=== PATIENT | female | born 1945 | race African-American/Black ===

== ENCOUNTER 2017-08-10 07:15 | Emergency (ER) | payer OTHER ==
[~2017-08-10] VITALS: Ht 162.6 cm; Wt 102.5 kg
[~2017-08-10 07:15] MED LIST: ALPR0.5T6 PO; CHOL10003 PO; FLUT9.9S NS; HYDR-2762 PO; INSU100V13 SQ; INSU100V31 SQ; LETR2.5T18 PO; LEVO750T31 PO; LISI1TAB5 PO; MECL25TA3 PO; METF-620 PO; OFLO5DRO7 EACH EAR; PROM25TA10 PO; SIMV20TA3 PO; TRAM50TA PO
[2017-08-10 07:38] LABS: BILIRUBIN,URINE NEGATIVE (NEG); GLUCOSE,URINE NEGATIVE (NEG); NITRITE,URINE NEGATIVE (NEG); PH,URINE 5.5; PROTEIN,URINE NEGATIVE (NEG-TRACE); UROBILINOGEN,URINE 0.2 mg/dL (0.2 mg/dL)
[2017-08-10 08:04] LABS: BACTERIA,URINE FEW /HPF (0-FEW); RBC,URINE 0 /HPF (0-2); SQUAMOUS EPITHELIAL CELL,UR FEW /LPF
[2017-08-10 08:18] LABS: BASO # 0.1 x10^3/uL (0.0-0.2); BASO % 1 % (0-3); EOS % 1 % (0-3); HEMATOCRIT 39.9 % (36.0-47.0); HEMOGLOBIN 12.9 g/dL (12.0-15.5); LYMPH # 2.6 x10^3/uL (1.0-4.8); LYMPH % 38 % (24-48); MEAN CORPUSCULAR HEMOGLOBIN 26 pg (25-35); MEAN CORPUSCULAR HGB CONC 32 g/dL (31-37); MEAN CORPUSCULAR VOLUME 80 fL (79-100); MONO % 8 % (0-9); NEUT % 53 % (31-73); PLATELET COUNT 201 x10^3/uL (140-400); RED CELL DISTRIBUTION WIDTH 13.9 % (11.5-14.5); WHITE BLOOD COUNT 6.8 x10^3/uL (4.0-11.0)
[2017-08-10 08:20] LABS: CALCIUM 8.8 mg/dL (8.5-10.1); CREATININE 1.2 mg/dL (0.6-1.0); GFR 53.7; POTASSIUM 3.2 mmol/L (3.5-5.1)
--- NOTE | 2017-08-10 08:25 | PHYS DOC ---
Past Medical History Past Medical History: Anxiety, Cancer, Diabetes-Type II, High Cholesterol, Hypertension, Other Additional Past Medical Histor: MACULAR DEGENERATION, GOUT, PANIC ATTACKS Past Surgical History: Cholecystectomy, Tubal ligation, Other Additional Past Surgical Histo: LT BREAST REDUCTION, EYE PROCEDURES,L) masectomy.R)finger fx repair Alcohol Use: Rarely Drug Use: None Adult General Chief Complaint Chief Complaint: nausea and shakiness HPI HPI Patient is a 71 year old female who presents with intermittent nausea and shakiness that patient attributes to the Xanax she's been taking for her chronic anxiety. She came to this realization after talking to the pharmacist. She last took Xanax yesterday at 1 PM and woke up at 5 PM feeling the symptoms. She denies any associated pain, she has not vomited, no recent illness or fevers. She denies chest pain or shortness of breath. Patient reports she has multiple phobias that contributed to her anxiety, one being fear of [place] and she lives on the eighth floor. Patient's treated for anxiety by her primary care physician, Dr. Amin Review of Systems Review of Systems Constitutional: Denies fever or chills [] Eyes: Denies change in visual acuity, redness, or eye pain [] HENT: Denies nasal congestion or sore throat [] Respiratory: Denies cough or shortness of breath [] Cardiovascular: denies chest pain GI: Denies abdominal pain, vomiting, bloody stools or diarrhea [] : Denies dysuria or hematuria [] Musculoskeletal: Denies back pain or joint pain [] Integument: Denies rash or skin lesions [] Neurologic: Denies headache, focal weakness or sensory changes [] Current Medications Current Medications Current Medications Medications (Trade) Dose Ordered Sig/[facility] Start Time Stop Time Status Last Admin Dose Admin Aspirin (Anthony Aspirin) 325 mg 1X ONCE 08/10/17 09:30 08/10/17 09:34 DC Nitroglycerin/ Dextrose 250 ml @ 0 mls/hr 1X ONCE 08/10/17 09:00 08/10/17 09:34 DC Ondansetron HCl (Zofran) 4 mg 1X ONCE 08/10/17 08:30 08/10/17 08:31 DC 08/10/17 08:21 4 MG Allergies Allergies Allergies Coded Allergies Type Severity Reaction Last Updated Verified codeine Adverse Reaction Intermediate "HYPERVENTILATE" 08/10/17 Yes ibuprofen Adverse Reaction Intermediate "SICK" 08/10/17 Yes Physical Exam Physical Exam Constitutional: Well developed, well nourished, no acute distress, non-toxic appearance. [] HENT: Normocephalic, atraumatic, bilateral external ears normal, oropharynx moist, no oral exudates, nose normal. [] Eyes: PERRLA, EOMI, conjunctiva normal, no discharge. [] Neck: Normal range of motion, no tenderness, supple, no stridor. [] Cardiovascular:Heart rate regular with regular rhythm, no murmur [] Lungs & Thorax: Bilateral breath sounds clear to auscultation, no wheeze or crackles Abdomen: Bowel sounds normal, soft, no tenderness, no masses, no pulsatile masses. [] Skin: Warm, dry, no erythema, no rash. [] Back: No tenderness, no CVA tenderness. [] Extremities: No tenderness, no cyanosis, no clubbing, ROM intact, no edema. [] Neurologic: Alert and oriented X 3, normal motor function, normal sensory function, no focal deficits noted. [] Psychologic: Appears anxious, normal affect Current Patient Data Vital Signs Vital Signs Date Time Temp Pulse Resp B/P (MAP) Pulse Ox O2 Delivery O2 Flow Rate FiO2 08/10/17 07:30 98.0 74 20 131/65 (87) 98 Room Air 98.0 Lab Values Laboratory Tests Test 08/10/17 07:26 08/10/17 07:54 08/10/17 07:55 Urine Collection Type Unknown Urine Color Yellow Urine Clarity Clear Urine pH 5.5 Urine Specific [place] 1.015 Urine Protein Negative mg/dL (NEG-TRACE) Urine Glucose (UA) Negative mg/dL (NEG) Urine Ketones (Stick) Negative mg/dL (NEG) Urine Blood Negative (NEG) Urine Nitrite Negative (NEG) Urine Bilirubin Negative (NEG) Urine Urobilinogen Dipstick 0.2 mg/dL (0.2 mg/dL) Urine Leukocyte Esterase Small (NEG) Urine RBC 0 /HPF (0-2) Urine WBC 1-4 /HPF (0-4) Urine Squamous Epithelial Cells Few /LPF Urine Bacteria Few /HPF (0-FEW) Urine Mucus Slight /LPF Glucose (Fingerstick) 107 mg/dL (70-99) H White Blood Count 6.8 x10^3/uL (4.0-11.0) Red Blood Count 5.00 x10^6/uL (3.50-5.40) Hemoglobin 12.9 g/dL (12.0-15.5) Hematocrit 39.9 % (36.0-47.0) Mean Corpuscular Volume 80 fL (79-100) Mean Corpuscular Hemoglobin 26 pg (25-35) Mean Corpuscular Hemoglobin Concent 32 g/dL (31-37) Red Cell Distribution Width 13.9 % (11.5-14.5) Platelet Count 201 x10^3/uL (140-400) Neutrophils (%) (Auto) 53 % (31-73) Lymphocytes (%) (Auto) 38 % (24-48) Monocytes (%) (Auto) 8 % (0-9) Eosinophils (%) (Auto) 1 % (0-3) Basophils (%) (Auto) 1 % (0-3) Neutrophils # (Auto) 3.6 x10^3uL (1.8-7.7) Lymphocytes # (Auto) 2.6 x10^3/uL (1.0-4.8) Monocytes # (Auto) 0.6 x10^3/uL (0.0-1.1) Eosinophils # (Auto) 0.0 x10^3/uL (0.0-0.7) Basophils # (Auto) 0.1 x10^3/uL (0.0-0.2) Prothrombin Time 12.4 SEC (11.7-14.0) Prothrombin Time INR 1.0 (0.8-1.1) Sodium Level 143 mmol/L (136-145) Potassium Level 3.2 mmol/L (3.5-5.1) L Chloride Level 105 mmol/L (98-107) Carbon Dioxide Level 28 mmol/L (21-32) Anion Gap 10 (6-14) Blood Urea Nitrogen 20 mg/dL (7-20) Creatinine 1.2 mg/dL (0.6-1.0) H Estimated GFR (Cockcroft-Gault) 53.7 BUN/Creatinine Ratio 17 (6-20) Glucose Level 108 mg/dL (70-99) H Calcium Level 8.8 mg/dL (8.5-10.1) Magnesium Level 1.4 mg/dL (1.8-2.4) L Total Bilirubin 0.5 mg/dL (0.2-1.0) Aspartate Amino Transferase (AST) 24 U/L (15-37) Alanine Aminotransferase (ALT) 34 U/L (14-59) Alkaline Phosphatase 63 U/L (46-116) Troponin I Quantitative 0.115 ng/mL (0.000-0.055) Total Protein 7.2 g/dL (6.4-8.2) Albumin 3.5 g/dL (3.4-5.0) Albumin/Globulin Ratio 0.9 (1.0-1.7) L Laboratory Tests 08/10/17 07:55 Laboratory Tests 08/10/17 07:55 EKG EKG 72 bpm, sinus, normal axis, QTC of 473, T-wave inversions in 1, 2, V3 through V6 , aVL, no new ST elevation or depression, compared with previous EKG on May 05, 2015 and there is no acute change appreciated, interpreted by me[] Radiology/Procedures Radiology/Procedures cxr: Portable chest, 08/10/2017: History: Weakness Comparison is made to a study from 03/19/2015. The heart size and pulmonary vascularity are normal. There is mild tortuosity of the thoracic aorta. There is minimal right basilar scarring. No acute pulmonary infiltrates are seen. There is no evidence of pleural fluid. Surgical clips are present in the left axilla. IMPRESSION: No acute cardiopulmonary abnormality is detected. [] Course & Med Decision Making Course & Med Decision Making Pertinent Labs and Imaging studies reviewed. (See chart for details) labs/cxr/ekg performed, IV zofran given for nausea. Pt feeling improved, discussed abnormal findings on pt and not acute/new. Pt has chronically elevated troponin, not increased from prior, EKG unchanged, h/o renal insufficiency. Pt agreeable to dc with f/u with pcp. DC'd with zofran odt and recommended discontinuing xanax Dragon Disclaimer Dragon Disclaimer This electronic medical record was generated, in whole or in part, using a voice recognition dictation system. Departure Departure Impression: Primary Impression: Nausea Disposition: HOME, SELF-CARE Condition: IMPROVED Referrals: WAQAR AMIN MD (PCP) Scripts Ondansetron (ZOFRAN ODT) 4 Mg Tab.rapdis 1 TAB SL Q8HRS Y for NAUSEA, #10 TAB Prov: NICK GIBSON MD 08/10/17 NICK GIBSON MD Aug 10, 2017 08:25
[2017-08-10 08:27] LABS: ALBUMIN 3.5 g/dL (3.4-5.0); ALBUMIN/GLOBULIN RATIO 0.9 (1.0-1.7); MAGNESIUM 1.4 mg/dL (1.8-2.4); TOTAL BILIRUBIN 0.5 mg/dL (0.2-1.0); TOTAL PROTEIN 7.2 g/dL (6.4-8.2)
[2017-08-10 08:29] LABS: PROTHROMBIN TIME PATIENT 12.4 SEC (11.7-14.0)
[2017-08-10] MEDS ORDERED: ONDANSETRON PF 4 MG/2 ML VIAL. IV ONE (08:30)
--- NOTE | 2017-08-10 08:47 | EKG ---
[facility] [address] [place] [address] Test Date: 2017-08-10 Test Time: 07:59:30 Pat Name: VIRGILIO HICKEY Department: Room: Gender: F Group Manager: : 1945 Requested By: NICK GIBSON Order Number: [id number] Reading MD: Keily Angela Measurements Intervals [place] Rate: 72 P: 31 MD: 198 QRS: -8 QRSD: 76 T: 178 QT: 430 QTc: 473 Interpretive Statements SINUS RHYTHM LEFTWARD AXIS LVH WITH REPOLARIZATION ABNORMALITY ALSO CONSIDER MYOCARDIAK ISCHEMIA Electronically Signed On 08-12-2017 20:35:23 CDT by Keily Angela
--- NOTE | 2017-08-10 08:56 | RAD ---
Portable chest, 08/10/2017: History: Weakness Comparison is made to a study from 03/19/2015. The heart size and pulmonary vascularity are normal. There is mild tortuosity of the thoracic aorta. There is minimal right basilar scarring. No acute pulmonary infiltrates are seen. There is no evidence of pleural fluid. Surgical clips are present in the left axilla. IMPRESSION: No acute cardiopulmonary abnormality is detected.
[2017-08-10] MEDS ORDERED: NITROGLYCERIN PREMIX 250 ML IV ONE (09:00)
[2017-08-10] MEDS ORDERED: ASPIRIN 325 MG TABLET PO ONE (09:30)
[2017-08-10 09:49] VITALS: BP 136/65
[2017-08-10] MEDS ORDERED: ONDA4TAB10 SL (09:49)
== END 2017-08-10 10:00 | disposition home or self-care (01) ==
LOC: ER 07:15
DX: R11.0 Nausea (principal); F41.9 Anxiety disorder, unspecified; E11.9 Type 2 diabetes mellitus without complications; E78.00 Pure hypercholesterolemia, unspecified; M10.9 Gout, unspecified; I10 Essential (primary) hypertension; Z90.49 Acquired absence of other specified parts of digestive tract; Z98.51 Tubal ligation status; Z88.5 Allergy status to narcotic agent; Z88.6 Allergy status to analgesic agent
CPT/HCPCS: 36415; 71010; 80053; 81001; 82962; 83735; 84484; 85025; 85610; 93005; 96374; 99285; J2405

== ENCOUNTER 2018-01-15 08:48 | Emergency (ER) | payer OTHER ==
[2018-01-15] MEDS: PROPARACAINE 0.5% OPHTH SOLUTION 15ML BOTTLE. OU (09:57)
== END 2018-01-15 10:05 | disposition home or self-care (01) ==
LOC: ER 08:48
DX: H66.003 Acute suppurative otitis media without spontaneous rupture of ear drum, bilateral (principal); E11.9 Type 2 diabetes mellitus without complications; E78.00 Pure hypercholesterolemia, unspecified; I10 Essential (primary) hypertension; M10.9 Gout, unspecified; Z88.5 Allergy status to narcotic agent; Z88.8 Allergy status to other drugs, medicaments and biological substances
CPT/HCPCS: 99283

== ENCOUNTER 2018-02-24 07:37 | Emergency (ER) | payer OTHER ==
[2018-02-24 08:51] LABS: NEGATIVE OBC STREP NEG; POSITIVE OBC STREP POS
== END 2018-02-24 09:05 | disposition home or self-care (01) ==
LOC: ER 07:37
DX: H10.89 Other conjunctivitis (principal); J02.8 Acute pharyngitis due to other specified organisms; B97.89 Other viral agents as the cause of diseases classified elsewhere; E78.00 Pure hypercholesterolemia, unspecified; M10.9 Gout, unspecified; I10 Essential (primary) hypertension; E11.9 Type 2 diabetes mellitus without complications; Z90.49 Acquired absence of other specified parts of digestive tract; Z98.51 Tubal ligation status; Z88.5 Allergy status to narcotic agent; Z88.6 Allergy status to analgesic agent
CPT/HCPCS: 87070; 87880; 99283

== ENCOUNTER → 2019-02-13 | Outpatient (CLI) | payer OTHER ==
[2018-12-20 13:31] VITALS: BP 161/77
[~2019-02-13] MED LIST changes: +AMLO5TAB10 PO; +AMOX500C PO; +ASPI-630 PO; +AZIT250T PO; +BENZ100C PO; +FEMARA2.5 MG PO; -HYDR-2762 PO; +HYDR-2765 PO; +HYDR25TA PO; -LETR2.5T18 PO; +LOSA100T14 PO; -METF-620 PO; +METF10007 PO; +ONDA4TAB10 SL; +TOBR5DRO6 EACHEYE
[2019-02-13 15:24] LABS: BARBITURATES NEG (NEG); BENZODIAZEPINES NEG (NEG); CANNABINOIDS POS (NEG); COCAINE NEG (NEG); METHADONE NEG (NEG); OPIATES NEG (NEG); PHENCYCLIDINE NEG (NEG)
[2019-02-13 15:26] LABS: AMPHETAMINE/METHAMPHETAMINE NEG (NEG); BASO % 0 % (0-3); EOS % 0 % (0-3); HEMOGLOBIN 12.6 g/dL (12.0-15.5); LYMPH # 2.5 x10^3/uL (1.0-4.8); LYMPH % 36 % (24-48); MEAN CORPUSCULAR HEMOGLOBIN 25 pg (25-35); MEAN CORPUSCULAR HGB CONC 32 g/dL (31-37); MEAN CORPUSCULAR VOLUME 81 fL (79-100); MONO # 0.6 x10^3/uL (0.0-1.1); MONO % 9 % (0-9); NEUT # 3.9 x10^3uL (1.8-7.7); NEUT % 55 % (31-73); PLATELET COUNT 190 x10^3/uL (140-400); RED BLOOD COUNT 4.96 x10^6/uL (3.50-5.40); RED CELL DISTRIBUTION WIDTH 14.8 % (11.5-14.5); WHITE BLOOD COUNT 7.1 x10^3/uL (4.0-11.0)
[2019-02-13 15:34] LABS: ALBUMIN 3.7 g/dL (3.4-5.0); ALBUMIN/GLOBULIN RATIO 0.9 (1.0-1.7); CALCIUM 9.5 mg/dL (8.5-10.1); CREATININE 1.4 mg/dL (0.6-1.0); GFR 44.7; POTASSIUM 4.2 mmol/L (3.5-5.1); TOTAL BILIRUBIN 0.4 mg/dL (0.2-1.0); TOTAL PROTEIN 7.9 g/dL (6.4-8.2)
== END | disposition home or self-care (01) ==
LOC: LAB 14:39
PROVIDERS: ATTEND Psychiatry & Neurology Neurology
DX: R56.9 Unspecified convulsions (principal)
CPT/HCPCS: 36415; 80053; 80307; 82607; 84443; 85025

== ENCOUNTER 2019-04-09 17:31 | Emergency (ER) | payer OTHER ==
[~2019-04-09] VITALS: Ht 162.6 cm; Wt 106.7 kg
[~2019-04-09 17:31] MED LIST changes: -AZIT250T PO; -BENZ100C PO
[2019-04-09] MEDS ORDERED: IV NORMAL SALINE 1000ML BAG 1,000 ML IV SCH (18:23)
--- NOTE | 2019-04-09 18:29 | PHYS DOC ---
Past Medical History Past Medical History: Anxiety, Cancer, Diabetes-Type II, High Cholesterol, Hypertension, Other Additional Past Medical Histor: MACULAR DEGENERATION, GOUT, PANIC ATTACKS Past Surgical History: Cholecystectomy, Tubal ligation, Other Additional Past Surgical Histo: LT BREAST REDUCTION, EYE PROCEDURES,L)masectomy.R)finger fx repair Alcohol Use: None Drug Use: Marijuana Adult General Chief Complaint Chief Complaint: COUGH HPI HPI Patient is a 73-year-old female who presents with complaint of cough, fatigue and generalized weakness as well as chest wall pain. Patient states that she's been feeling sick for about a month now. She states that she has had a left- sided mastectomy and feels like she's got fluid in the scar tissue, stating that it seems swollen to her and is painful. She denies any shortness of breath but states that she hasn't really been eating getting up and around because she so fatigued. She states that she has an appointment with her doctor this Tuesday but states that she was not able to wait any longer because she is feeling so bad. She rates pain in her chest is moderate. She also indicates that she has been nauseated but has not vomited. She does admit to some loose stools periodically but states that that depends on what she eats.[] Review of Systems Review of Systems Constitutional: Denies fever or chills [] Respiratory: Positive cough without shortness of breath [] Cardiovascular: No additional information not addressed in HPI [] GI: Denies abdominal pain. Complains of nausea without vomiting. [] Integument: Denies rash or skin lesions [] Neurologic: Denies headache, focal weakness or sensory changes [] All other systems were reviewed and found to be within normal limits, except as documented in this note. Current Medications Current Medications Current Medications Medications (Trade) Dose Ordered Sig/[facility] Start Time Stop Time Status Last Admin Dose Admin Aspirin (Children'S Aspirin) 324 mg 1X ONCE 04/09/19 19:00 04/09/19 19:01 DC 04/09/19 18:48 324 MG Fentanyl Citrate (Fentanyl 2ml Vial) 25 mcg PRN Q15MIN PRN 04/09/19 18:30 04/10/19 18:29 04/09/19 18:49 25 MCG Ondansetron HCl (Zofran) 4 mg 1X ONCE 04/09/19 18:30 04/09/19 18:31 DC 04/09/19 18:49 4 MG Sodium Chloride 1,000 ml @ 100 mls/hr Q10H 04/09/19 18:23 04/10/19 04:22 04/09/19 18:49 100 MLS/HR Allergies Allergies Allergies Coded Allergies Type Severity Reaction Last Updated Verified codeine Adverse Reaction Intermediate "HYPERVENTILATE" 08/10/17 Yes ibuprofen Adverse Reaction Intermediate "SICK" 08/10/17 Yes Physical Exam Physical Exam Constitutional: Well developed, well nourished, no acute distress, non-toxic appearance. [] HENT: Normocephalic, atraumatic, bilateral external ears normal, oropharynx moist, no oral exudates, nose normal. [] Eyes: PERRLA, EOMI, conjunctiva normal, no discharge. [] Neck: Normal range of motion, no tenderness, supple, no stridor. [] Cardiovascular:Heart rate regular rhythm, no murmur [] Lungs & Thorax: Bilateral breath sounds clear to auscultation [] Abdomen: Bowel sounds normal, soft. [] Skin: Warm, dry, no erythema, no rash. [] Extremities: No tenderness, no cyanosis, no clubbing, ROM intact, no edema. [] Neurologic: Alert and oriented X 3, no focal deficits noted. [] Current Patient Data Vital Signs Vital Signs Date Time Temp Pulse Resp B/P (MAP) Pulse Ox O2 Delivery O2 Flow Rate FiO2 04/09/19 18:56 81 19 163/77 (105) 92 Nasal Cannula 04/09/19 18:20 97.8 97.8 Lab Values Laboratory Tests Test 04/09/19 18:25 White Blood Count 8.3 x10^3/uL (4.0-11.0) Red Blood Count 4.83 x10^6/uL (3.50-5.40) Hemoglobin 12.5 g/dL (12.0-15.5) Hematocrit 38.7 % (36.0-47.0) Mean Corpuscular Volume 80 fL (79-100) Mean Corpuscular Hemoglobin 26 pg (25-35) Mean Corpuscular Hemoglobin Concent 32 g/dL (31-37) Red Cell Distribution Width 14.7 % (11.5-14.5) H Platelet Count 237 x10^3/uL (140-400) Neutrophils (%) (Auto) 65 % (31-73) Lymphocytes (%) (Auto) 24 % (24-48) Monocytes (%) (Auto) 9 % (0-9) Eosinophils (%) (Auto) 1 % (0-3) Basophils (%) (Auto) 1 % (0-3) Neutrophils # (Auto) 5.3 x10^3uL (1.8-7.7) Lymphocytes # (Auto) 2.0 x10^3/uL (1.0-4.8) Monocytes # (Auto) 0.7 x10^3/uL (0.0-1.1) Eosinophils # (Auto) 0.1 x10^3/uL (0.0-0.7) Basophils # (Auto) 0.1 x10^3/uL (0.0-0.2) D-Dimer (Lili) 0.30 ug/mlFEU (0.00-0.50) Sodium Level 141 mmol/L (136-145) Potassium Level 3.8 mmol/L (3.5-5.1) Chloride Level 103 mmol/L (98-107) Carbon Dioxide Level 27 mmol/L (21-32) Anion Gap 11 (6-14) Blood Urea Nitrogen 14 mg/dL (7-20) Creatinine 1.3 mg/dL (0.6-1.0) H Estimated GFR (Cockcroft-Gault) 48.7 BUN/Creatinine Ratio 11 (6-20) Glucose Level 184 mg/dL (70-99) H Calcium Level 9.7 mg/dL (8.5-10.1) Magnesium Level 1.5 mg/dL (1.8-2.4) L Total Bilirubin 0.2 mg/dL (0.2-1.0) Aspartate Amino Transferase (AST) 25 U/L (15-37) Alanine Aminotransferase (ALT) 39 U/L (14-59) Alkaline Phosphatase 74 U/L (46-116) Troponin I Quantitative 0.178 ng/mL (0.000-0.055) GH-Mkb-O-Type Natriuretic Peptide 181 pg/mL (0-124) H Total Protein 7.4 g/dL (6.4-8.2) Albumin 3.4 g/dL (3.4-5.0) Albumin/Globulin Ratio 0.9 (1.0-1.7) L Lipase 151 U/L (73-393) Laboratory Tests 04/09/19 18:25 Laboratory Tests 04/09/19 18:25 EKG EKG EKG demonstrates sinus rhythm with rate of 91.[] Radiology/Procedures Radiology/Procedures [] Impressions: chest x-ray demonstrates no acute process. Course & Med Decision Making Course & Med Decision Making Pertinent Labs and Imaging studies reviewed. (See chart for details) Findings of workup have been reviewed with patient along with elevated troponin. Patient indicates that she always has elevated troponin. She states that she was admitted just back in December for the same thing and they did a heart catheterization. Heart catheter was unremarkable. Patient does have an appointment with Dr. Marx on Tuesday. She indicates that she does not want to be admitted into the hospital at this time. Dragon Disclaimer Dragon Disclaimer This electronic medical record was generated, in whole or in part, using a voice recognition dictation system. Departure Departure Impression: Primary Impression: Upper respiratory infection Disposition: HOME, SELF-CARE Condition: STABLE Referrals: ZOILA MARX MD (PCP) Patient Instructions: Upper Respiratory Infection, Adult Scripts Benzonatate (TESSALON PERLE) 100 Mg Capsule 1 CAP PO TID PRN for COUGH, #21 CAP Prov: NELL LUCERO Jr. DO 04/09/19 Azithromycin (ZITHROMAX) 250 Mg Tablet 1 PKG PO UD, #6 TAB Prov: NELL LUCERO Jr. DO 04/09/19 Problem Qualifiers Primary Impression: Upper respiratory infection URI type: unspecified URI Qualified Codes: J06.9 - Acute upper respiratory infection, unspecified NELL LUCERO Jr. DO Apr 09, 2019 18:29
[2019-04-09] MEDS ORDERED: fentaNYL PF VIAL 100 MCG/2 ML VIAL IV PRN (18:30)
[2019-04-09] MEDS ORDERED: ONDANSETRON PF 4 MG/2 ML VIAL. IV ONE (18:30)
[2019-04-09 18:40] LABS: BASO # 0.1 x10^3/uL (0.0-0.2); BASO % 1 % (0-3); EOS # 0.1 x10^3/uL (0.0-0.7); EOS % 1 % (0-3); HEMATOCRIT 38.7 % (36.0-47.0); HEMOGLOBIN 12.5 g/dL (12.0-15.5); LYMPH % 24 % (24-48); MEAN CORPUSCULAR HEMOGLOBIN 26 pg (25-35); MEAN CORPUSCULAR HGB CONC 32 g/dL (31-37); MEAN CORPUSCULAR VOLUME 80 fL (79-100); MONO # 0.7 x10^3/uL (0.0-1.1); MONO % 9 % (0-9); NEUT # 5.3 x10^3uL (1.8-7.7); NEUT % 65 % (31-73); PLATELET COUNT 237 x10^3/uL (140-400); RED BLOOD COUNT 4.83 x10^6/uL (3.50-5.40); RED CELL DISTRIBUTION WIDTH 14.7 % (11.5-14.5); WHITE BLOOD COUNT 8.3 x10^3/uL (4.0-11.0)
[2019-04-09 18:58] LABS: CALCIUM 9.7 mg/dL (8.5-10.1); CREATININE 1.3 mg/dL (0.6-1.0); GFR 48.7; POTASSIUM 3.8 mmol/L (3.5-5.1)
[2019-04-09] MEDS ORDERED: ASPIRIN CHEWABLE 81 MG TABLET. PO ONE (19:00)
[2019-04-09 19:03] LABS: ALBUMIN 3.4 g/dL (3.4-5.0); TOTAL PROTEIN 7.4 g/dL (6.4-8.2)
[2019-04-09 19:04] LABS: ALBUMIN/GLOBULIN RATIO 0.9 (1.0-1.7); MAGNESIUM 1.5 mg/dL (1.8-2.4); TOTAL BILIRUBIN 0.2 mg/dL (0.2-1.0)
[2019-04-09 20:20] VITALS: BP 149/72
[2019-04-09] MEDS ORDERED: BENZ100C PO (20:32)
[2019-04-09] MEDS ORDERED: AZIT250T PO (20:32)
[2019-04-09] MEDS ORDERED: AZITHROMYCIN 250 MG TABLET. PO ONE (21:00)
--- NOTE | 2019-04-09 23:49 | RAD ---
PORTABLE CHEST 1V History: Chest pain Comparison: 12/19/2018 Findings: Single view of the chest is submitted. Pericardial cardiac silhouette is again somewhat enlarged although stable. There is no new lobar consolidation, pleural fluid, pneumothorax. Impression: 1. No acute radiographic abnormality is identified. Electronically signed by: Elmer Combs MD (04/09/2019 11:46 PM) [facility]
--- NOTE | 2019-04-10 05:41 | EKG ---
[facility] [address] [place] [address] Test Date: 2019-04-09 Test Time: 18:25:59 Pat Name: VIRGILIO HICKEY Department: Room: Gender: F Neurologist: : 1945 Requested By: NELL LUCERO Order Number: [id number] Reading MD: Measurements Intervals [place] Rate: 91 P: 18 MT: 270 QRS: -1 QRSD: 72 T: 155 QT: 370 QTc: 457 Interpretive Statements SINUS RHYTHM PROLONGED MT INTERVAL LEFT ATRIAL ABNORMALITY LEFTWARD AXIS LVH WITH REPOLARIZATION ABNORMALITY ABNORMAL ECG RI6.01 Unconfirmed report No previous ECG available for comparison
== END 2019-04-09 20:35 | disposition home or self-care (01) ==
LOC: ER 17:31
DX: J06.9 Acute upper respiratory infection, unspecified (principal); E11.9 Type 2 diabetes mellitus without complications; E78.00 Pure hypercholesterolemia, unspecified; I10 Essential (primary) hypertension; Z88.5 Allergy status to narcotic agent; Z88.8 Allergy status to other drugs, medicaments and biological substances; Z90.49 Acquired absence of other specified parts of digestive tract; Z98.51 Tubal ligation status
CPT/HCPCS: 36415; 71045; 80053; 83690; 83735; 83880; 84484; 85025; 85379; 93005; 96374; 96375; 99285; J2405; J3010; J7030

== ENCOUNTER 2019-10-07 08:43 | Emergency (ER) | payer OTHER, MEDICAID ==
[~2019-10-07] VITALS: Ht 162.6 cm; Wt 107.0 kg
[~2019-10-07 08:43] MED LIST changes: +AZIT250T PO; +BENZ100C PO; +LISI1TAB19 PO; -LISI1TAB5 PO; +SIMV20TA18 PO; -SIMV20TA3 PO
[2019-10-07] MEDS ORDERED: PROCHLORPERAZINE 10 MG/2 ML VIAL. IV STA (09:18)
[2019-10-07] MEDS ORDERED: IV NORMAL SALINE 500ML BAG 500 ML IV STA (09:18)
[2019-10-07] MEDS ORDERED: diphenhydrAMINE 50 MG/ML VIAL IVP STA (09:18)
[2019-10-07] MEDS ORDERED: fentaNYL PF VIAL 100 MCG/2 ML VIAL IV STA (09:18)
--- NOTE | 2019-10-07 09:24 | PHYS DOC ---
Past Medical History Past Medical History: Anxiety, Cancer, Diabetes-Type II, High Cholesterol, Hypertension, Other Additional Past Medical Histor: MACULAR DEGENERATION, GOUT, PANIC ATTACKS Past Surgical History: Cholecystectomy, Tubal ligation, Other Additional Past Surgical Histo: LT BREAST REDUCTION, EYE PROCEDURES,L)masectomy.R)finger fx repair Alcohol Use: None Drug Use: None Adult General Chief Complaint Chief Complaint: HEADACHE HPI HPI Patient is a 73 year old female who presents with headache this been ongoing last night since 6 PM. She states that the headache is located on the right side of her head behind her ear. She also has associated symptoms of nausea, fatigue, right ear pain. She reports her pain as 8 out of 10 in severity and sharp. She states that she does not normally get headaches such as this. She does have a history of type 2 diabetes. Review of Systems Review of Systems Constitutional: Denies fever or chills [] Eyes: Denies change in visual acuity, redness, or eye pain [] HENT: Denies nasal congestion or sore throat. Reports R ear pain. Respiratory: Denies cough or shortness of breath [] Cardiovascular: No additional information not addressed in HPI [] GI: Reports nausea, Denies abdominal pain,, vomiting, bloody stools or diarrhea [] : Denies dysuria or hematuria [] Musculoskeletal: Denies back pain or joint pain [] Integument: Denies rash or skin lesions [] Neurologic: Denies headache, focal weakness or sensory changes [] Endocrine: Denies polyuria or polydipsia [] Complete systems were reviewed and found to be within normal limits, except as documented in this note. Current Medications Current Medications Current Medications Medications (Trade) Dose Ordered Sig/Rell Start Time Stop Time Status Last Admin Dose Admin Diphenhydramine HCl (Benadryl) 25 mg 1X STAT 10/07/19 09:18 10/07/19 09:22 DC 10/07/19 09:48 25 MG Fentanyl Citrate (Fentanyl 2ml Vial) 50 mcg 1X STAT 10/07/19 09:18 10/07/19 09:22 DC 10/07/19 09:47 50 MCG Info (CONTRAST GIVEN -- Rx MONITORING) 1 each PRN DAILY PRN 10/07/19 10:15 10/09/19 10:14 Iohexol (Omnipaque 300 Mg/ml) 60 ml 1X ONCE 10/07/19 10:15 10/07/19 10:16 DC Prochlorperazine Edisylate (Compazine) 10 mg 1X STAT 10/07/19 09:18 10/07/19 09:22 DC 10/07/19 09:48 10 MG Sodium Chloride 500 ml @ 500 mls/hr 1X STAT 10/07/19 09:18 10/07/19 10:17 DC 10/07/19 09:45 500 MLS/HR Allergies Allergies Allergies Coded Allergies Type Severity Reaction Last Updated Verified codeine Adverse Reaction Intermediate "HYPERVENTILATE" 08/10/17 Yes ibuprofen Adverse Reaction Intermediate "SICK" 08/10/17 Yes Physical Exam Physical Exam Constitutional: Well developed, well nourished, no acute distress, non-toxic appearance. [] HENT: Normocephalic, atraumatic, bilateral external ears normal, Right tympanic membrane is red and bulging, left tympanic membrane is pearly jha, tenderness to R mastoid bone, oropharynx moist, no oral exudates, nose normal. [] Eyes: PERRLA, EOMI, conjunctiva normal, no discharge. [] Neck: Normal range of motion, no tenderness, supple, no stridor. [] Cardiovascular:Heart rate regular rhythm, no murmur [] Lungs & Thorax: Bilateral breath sounds clear to auscultation [] Abdomen: Bowel sounds normal, soft, no tenderness, no masses, no pulsatile masses. [] Skin: Warm, dry, no erythema, no rash. [] Back: No tenderness, no CVA tenderness. [] Extremities: No tenderness, no cyanosis, no clubbing, ROM intact, no edema. [] Neurologic: Alert and oriented X 3, normal motor function, normal sensory function, no focal deficits noted. [] Psychologic: Affect normal, judgement normal, mood normal. [] Current Patient Data Vital Signs Vital Signs Date Time Temp Pulse Resp B/P (MAP) Pulse Ox O2 Delivery O2 Flow Rate FiO2 10/07/19 09:47 16 95 Room Air 10/07/19 09:00 97.8 81 175/63 (100) 97.8 Lab Values Laboratory Tests Test 10/07/19 09:40 White Blood Count 6.3 x10^3/uL (4.0-11.0) Red Blood Count 5.16 x10^6/uL (3.50-5.40) Hemoglobin 13.5 g/dL (12.0-15.5) Hematocrit 41.7 % (36.0-47.0) Mean Corpuscular Volume 81 fL (79-100) Mean Corpuscular Hemoglobin 26 pg (25-35) Mean Corpuscular Hemoglobin Concent 32 g/dL (31-37) Red Cell Distribution Width 15.0 % (11.5-14.5) H Platelet Count 197 x10^3/uL (140-400) Neutrophils (%) (Auto) 53 % (31-73) Lymphocytes (%) (Auto) 35 % (24-48) Monocytes (%) (Auto) 10 % (0-9) H Eosinophils (%) (Auto) 1 % (0-3) Basophils (%) (Auto) 1 % (0-3) Neutrophils # (Auto) 3.3 x10^3/uL (1.8-7.7) Lymphocytes # (Auto) 2.2 x10^3/uL (1.0-4.8) Monocytes # (Auto) 0.6 x10^3/uL (0.0-1.1) Eosinophils # (Auto) 0.0 x10^3/uL (0.0-0.7) Basophils # (Auto) 0.1 x10^3/uL (0.0-0.2) Sodium Level 139 mmol/L (136-145) Potassium Level 4.2 mmol/L (3.5-5.1) Chloride Level 102 mmol/L (98-107) Carbon Dioxide Level 30 mmol/L (21-32) Anion Gap 7 (6-14) Blood Urea Nitrogen 16 mg/dL (7-20) Creatinine 1.2 mg/dL (0.6-1.0) H Estimated GFR (Cockcroft-Gault) 53.4 BUN/Creatinine Ratio 13 (6-20) Glucose Level 241 mg/dL (70-99) H Calcium Level 9.8 mg/dL (8.5-10.1) Total Bilirubin 0.4 mg/dL (0.2-1.0) Aspartate Amino Transferase (AST) 20 U/L (15-37) Alanine Aminotransferase (ALT) 31 U/L (14-59) Alkaline Phosphatase 66 U/L (46-116) C-Reactive Protein, Quantitative 1.5 mg/L (0-3.3) Total Protein 8.2 g/dL (6.4-8.2) Albumin 3.6 g/dL (3.4-5.0) Albumin/Globulin Ratio 0.8 (1.0-1.7) L Laboratory Tests 10/07/19 09:40 Laboratory Tests 10/07/19 09:40 EKG EKG [] Radiology/Procedures Radiology/Procedures [facility] [address] [place] [address] IMAGING REPORT Signed PATIENT: VIRGILIO HICKEY ACCOUNT: [id number] : 1945 LOCATION: ER AGE: 73 SEX: F EXAM STATUS: REG ER ORD. PHYSICIAN: GIANNA BLACKMAN APRN REASON: headache, mastoid bone tenderness, R ear pain, r/o mastoiditis PROCEDURE: CT MAXILLOFACIAL W/CONTRAST CT maxillofacial with contrast: Reason for examination: Headache. Mastoid bone tenderness and right ureter pain. Evaluate for mastoiditis. Helical images were obtained to the maxillofacial structures with intravenous administration of 60 cc Omnipaque 300. Reconstruction was performed in sagittal and coronal planes. Exposure: One or more of the following individualized dose reduction techniques were utilized for this examination: 1. Automated exposure control 2. Adjustment of the mA and/or kV according to patient size 3. Use of iterative reconstruction technique. No abnormalities of seen at the orbits. The paranasal sinuses are clear. The parotid and submandibular gland show no acute abnormalities. Muscular bundles appear to be symmetric. The mastoid air cells are clear. No middle ear abnormalities are evident. No external auditory canal abnormalities are evident. No acute vascular abnormalities are evident. There is however some calcification at the right carotid bulb. No abnormality is seen at the mandible or at the temporomandibular joints. There is no nasal septal deviation. Nasal turbinates are symmetric. The visualized portion of the cervical spine is normally aligned anteriorly and posteriorly. No acute fracture or subluxation is seen. There are some degenerative changes present. No abnormality seen at the thyroid gland. The vallecula and piriform sinuses are symmetric. Vocal cords are symmetric. No significant adenopathy is present. IMPRESSION: No evidence of mastoid air cell disease. No abnormalities evident in the middle ears or external auditory canals. Paranasal sinuses are clear. Electronically signed by: Babs Moore MD (10/07/2019 10:45 AM) [id number] DICTATED and SIGNED BY: BABS MOORE MD DATE: 10/07/19 1045 [][facility] [address] [place] [address] IMAGING REPORT Signed PATIENT: VIRGILIO HICKEY ACCOUNT: [id number] : 1945 LOCATION: ER AGE: 73 SEX: F EXAM STATUS: REG ER ORD. PHYSICIAN: GIANNA BLACKMAN APRN REASON: headache PROCEDURE: CT HEAD WO CONTRAST CT head without contrast: Reason for examination: Headache. Axial images were obtained through the brain. No contrast was administered. Exposure: One or more of the following individualized dose reduction techniques were utilized for this examination: 1. Automated exposure control 2. Adjustment of the mA and/or kV according to patient size 3. Use of iterative reconstruction technique. Ventricular systems are symmetric and not abnormally dilated. No midline shift is seen. There is some patchy deep white matter changes in the frontal lobes bilaterally consistent with microvascular ischemia. No hemorrhage, acute infarct, mass or edema is evident. No abnormalities of seen at the orbits. The paranasal sinuses visualized in the mastoid air cells are clear. No acute abnormality seen in the skull. IMPRESSION: Mild deep white matter microvascular ischemic changes in the frontal lobes bilaterally. No acute intracranial abnormality evident. Electronically signed by: Babs Moore MD (10/07/2019 9:49 AM) [facility] DICTATED and SIGNED BY: BABS MOORE MD DATE: 10/07/19 0949 Course & Med Decision Making Course & Med Decision Making Pertinent Labs and Imaging studies reviewed. (See chart for details) Will get CT head and CT maxillofacial with contrast to rule out mastoiditis. Will also get labs and give supportive care. Labs are otherwise unremarkable with exception of glucose of 242 which appears to be patient baseline. Hemoglobin A1c in March was 10.5%. Will treat for acute otitis media with Augmentin with return precautions. Dragon Disclaimer Dragon Disclaimer This electronic medical record was generated, in whole or in part, using a voice recognition dictation system. Departure Departure Impression: Primary Impression: Otitis media Additional Impression: Headache Disposition: 01 HOME, SELF-CARE Condition: STABLE Referrals: ZOILA DERAS MD (PCP) Patient Instructions: Otitis Media, Adult Additional Instructions: Thank you for visiting [facility]. We appreciate you trusting us with your care. If any additional problems come up don't hesitate to return to visit us. Please follow up with your primary care provider so they can plan additional care if needed and know about the problem that you had. If symptoms worsen come back to the Emergency Department. Any concerning symptoms that start such as chest pain, shortness of air, weakness or numbness on one side of the body, running high fevers or any other concerning symptoms return to the ER. You have been prescribed an antibiotic today to help fight your infection. Please take all of the antibiotic as directed. If after 48 hours the infection is not improving, please return for more care. If the infection worsens, return to ER for additional care. Scripts Ondansetron (ONDANSETRON ODT) 4 Mg Tab.rapdis 1 TAB PO PRN Q6-8HRS PRN for NAUSEA, #16 TAB Prov: GIANNA BLACKMAN APRN 10/07/19 Amoxicillin/Potassium Clav (AUGMENTIN 875-125 TABLET) 1 Each Tablet 1 TAB PO BID for 10 Days, #20 TAB 0 Refills Prov: GIANNA BLACKMAN APRN 10/07/19 Problem Qualifiers Primary Impression: Otitis media Otitis media type: suppurative Chronicity: acute Laterality: right Recurrence: not specified as recurrent Spontaneous tympanic membrane rupture: without spontaneous rupture Qualified Codes: H66.001 - Acute suppurative otitis media without spontaneous rupture of ear drum, right ear Additional Impression: Headache Headache type: unspecified Headache chronicity pattern: acute headache Intractability: not intractable Qualified Codes: R51 - Headache GIANNA BLACKMAN APRN Oct 07, 2019 09:24
--- NOTE | 2019-10-07 09:52 | RAD ---
CT head without contrast: Reason for examination: Headache. Axial images were obtained through the brain. No contrast was administered. Exposure: One or more of the following individualized dose reduction techniques were utilized for this examination: 1. Automated exposure control 2. Adjustment of the mA and/or kV according to patient size 3. Use of iterative reconstruction technique. Ventricular systems are symmetric and not abnormally dilated. No midline shift is seen. There is some patchy deep white matter changes in the frontal lobes bilaterally consistent with microvascular ischemia. No hemorrhage, acute infarct, mass or edema is evident. No abnormalities of seen at the orbits. The paranasal sinuses visualized in the mastoid air cells are clear. No acute abnormality seen in the skull. IMPRESSION: Mild deep white matter microvascular ischemic changes in the frontal lobes bilaterally. No acute intracranial abnormality evident. Electronically signed by: Babs Suarez MD (10/07/2019 9:49 AM) [facility]
[2019-10-07 09:54] LABS: BASO # 0.1 x10^3/uL (0.0-0.2); BASO % 1 % (0-3); EOS % 1 % (0-3); HEMATOCRIT 41.7 % (36.0-47.0); HEMOGLOBIN 13.5 g/dL (12.0-15.5); LYMPH # 2.2 x10^3/uL (1.0-4.8); LYMPH % 35 % (24-48); MEAN CORPUSCULAR HEMOGLOBIN 26 pg (25-35); MEAN CORPUSCULAR HGB CONC 32 g/dL (31-37); MEAN CORPUSCULAR VOLUME 81 fL (79-100); MONO # 0.6 x10^3/uL (0.0-1.1); MONO % 10 % (0-9); NEUT # 3.3 x10^3/uL (1.8-7.7); NEUT % 53 % (31-73); PLATELET COUNT 197 x10^3/uL (140-400); RED BLOOD COUNT 5.16 x10^6/uL (3.50-5.40); WHITE BLOOD COUNT 6.3 x10^3/uL (4.0-11.0)
[2019-10-07 10:03] LABS: CALCIUM 9.8 mg/dL (8.5-10.1); CREATININE 1.2 mg/dL (0.6-1.0); GFR 53.4; POTASSIUM 4.2 mmol/L (3.5-5.1)
[2019-10-07 10:08] LABS: ALBUMIN 3.6 g/dL (3.4-5.0); ALBUMIN/GLOBULIN RATIO 0.8 (1.0-1.7); C-REACTIVE PROTEIN 1.5 mg/L (0-3.3); TOTAL BILIRUBIN 0.4 mg/dL (0.2-1.0); TOTAL PROTEIN 8.2 g/dL (6.4-8.2)
[2019-10-07] MEDS ORDERED: CONTRAST GIVEN. MC PRN (10:15)
[2019-10-07] MEDS ORDERED: IOHEXOL 300 MG/ML 100ML VIAL. IV ONE (10:15)
--- NOTE | 2019-10-07 10:48 | RAD ---
CT maxillofacial with contrast: Reason for examination: Headache. Mastoid bone tenderness and right ureter pain. Evaluate for mastoiditis. Helical images were obtained to the maxillofacial structures with intravenous administration of 60 cc Omnipaque 300. Reconstruction was performed in sagittal and coronal planes. Exposure: One or more of the following individualized dose reduction techniques were utilized for this examination: 1. Automated exposure control 2. Adjustment of the mA and/or kV according to patient size 3. Use of iterative reconstruction technique. No abnormalities of seen at the orbits. The paranasal sinuses are clear. The parotid and submandibular gland show no acute abnormalities. Muscular bundles appear to be symmetric. The mastoid air cells are clear. No middle ear abnormalities are evident. No external auditory canal abnormalities are evident. No acute vascular abnormalities are evident. There is however some calcification at the right carotid bulb. No abnormality is seen at the mandible or at the temporomandibular joints. There is no nasal septal deviation. Nasal turbinates are symmetric. The visualized portion of the cervical spine is normally aligned anteriorly and posteriorly. No acute fracture or subluxation is seen. There are some degenerative changes present. No abnormality seen at the thyroid gland. The vallecula and piriform sinuses are symmetric. Vocal cords are symmetric. No significant adenopathy is present. IMPRESSION: No evidence of mastoid air cell disease. No abnormalities evident in the middle ears or external auditory canals. Paranasal sinuses are clear. Electronically signed by: Babs Suarez MD (10/07/2019 10:45 AM) [facility]
[2019-10-07 11:07] VITALS: BP 128/71
[2019-10-07] MEDS ORDERED: AMOX1TAB61 PO (11:09)
[2019-10-07] MEDS ORDERED: ONDA4TAB12 PO (11:12)
== END 2019-10-07 11:35 | disposition home or self-care (01) ==
LOC: ER 08:43
DX: R51 Headache (principal); H66.001 Acute suppurative otitis media without spontaneous rupture of ear drum, right ear; R53.83 Other fatigue; E11.9 Type 2 diabetes mellitus without complications; E78.00 Pure hypercholesterolemia, unspecified; I10 Essential (primary) hypertension; F41.9 Anxiety disorder, unspecified; Z88.5 Allergy status to narcotic agent; Z88.8 Allergy status to other drugs, medicaments and biological substances
CPT/HCPCS: 36415; 70450; 70487; 80053; 85025; 85651; 86140; 96361; 96374; 96375; 99285; J0780; J1200; J3010; J7040; Q9967

== ENCOUNTER 2020-06-19 19:24 | Emergency (ER) | payer OTHER, MEDICAID ==
[~2020-06-19] VITALS: Ht 162.6 cm; Wt 106.8 kg
[~2020-06-19 19:24] MED LIST changes: +AMOX1TAB61 PO; -LISI1TAB19 PO; +LISI1TAB37 PO; +MECL-75 PO; -MECL25TA3 PO; +ONDA4TAB12 PO
[2020-06-19 21:58] LABS: BILIRUBIN,URINE NEGATIVE (NEG); CLARITY,URINE CLEAR; COLOR,URINE YELLOW; NITRITE,URINE NEGATIVE (NEG); PROTEIN,URINE NEGATIVE (NEG-TRACE)
[2020-06-19 22:02] LABS: HYALINE CASTS, URINE MODERATE /HPF; SQUAMOUS EPITHELIAL CELL,UR MOD /LPF
[2020-06-19 22:03] LABS: BACTERIA,URINE FEW /HPF (0-FEW); RBC,URINE OCC /HPF (0-2); YEAST,URINE PRESENT /HPF
[2020-06-19 22:41] LABS: BASO # 0.1 x10^3/uL (0.0-0.2); BASO % 1 % (0-3); EOS # 0.1 x10^3/uL (0.0-0.7); EOS % 1 % (0-3); HEMATOCRIT 42.1 % (36.0-47.0); HEMOGLOBIN 13.7 g/dL (12.0-15.5); LYMPH % 37 % (24-48); MEAN CORPUSCULAR HEMOGLOBIN 27 pg (25-35); MEAN CORPUSCULAR HGB CONC 33 g/dL (31-37); MEAN CORPUSCULAR VOLUME 81 fL (79-100); MONO # 0.7 x10^3/uL (0.0-1.1); MONO % 8 % (0-9); NEUT # 4.2 x10^3/uL (1.8-7.7); NEUT % 52 % (31-73); PLATELET COUNT 184 x10^3/uL (140-400); RED BLOOD COUNT 5.17 x10^6/uL (3.50-5.40); RED CELL DISTRIBUTION WIDTH 14.5 % (11.5-14.5); WHITE BLOOD COUNT 8.1 x10^3/uL (4.0-11.0)
[2020-06-19 22:48] LABS: CALCIUM 9.8 mg/dL (8.5-10.1); CREATININE 1.3 mg/dL (0.6-1.0); GFR 48.6; POTASSIUM 4.2 mmol/L (3.5-5.1)
[2020-06-19 22:55] LABS: ALBUMIN 3.4 g/dL (3.4-5.0); ALBUMIN/GLOBULIN RATIO 0.9 (1.0-1.7); TOTAL BILIRUBIN 0.3 mg/dL (0.2-1.0); TOTAL PROTEIN 7.1 g/dL (6.4-8.2)
[2020-06-19] MEDS ORDERED: IV NORMAL SALINE 1000ML BAG 1,000 ML IV ONE (23:15)
[2020-06-19] MEDS ORDERED: CEPH-264 PO (23:48)
--- NOTE | 2020-06-19 23:48 | PHYS DOC ---
Past Medical History Past Medical History: Anxiety, Cancer, Diabetes-Type II, High Cholesterol, Hypertension, Other Additional Past Medical Histor: MACULAR DEGENERATION, GOUT, PANIC ATTACKS Past Surgical History: Cholecystectomy, Tubal ligation, Other Additional Past Surgical Histo: LT BREAST REDUCTION, EYE PROCEDURES,L)masectomy.R)finger fx repair Smoking Status: Former Smoker Alcohol Use: None Drug Use: None General Adult EDM: Chief Complaint: OTHER COMPLAINTS HPI: HPI: Patient is a 74-year-old female with past medical history diabetes who presents to the Emergency room complaining of low temperature and high glucose. Patient states that her glucose was in the 300s. She did give herself insulin prior to arrival and states that her glucose is now normal. She states that she generally felt unwell and had some mild nausea. She denies any abdominal pain, diarrhea, constipation, vomiting, fever, chest pain, shortness of breath. She is mostly feeling better at this time. She called the nursing hotline who told her to get checked out and that is why she is come to the emergency room. Review of Systems: Review of Systems: General: Denies fever, chills, sweats, fatigue Eyes: Denies drainage, blurred vision, eye redness HENT: Denies rhinorrhea, sore throat, earache Respiratory: Denies cough, shortness of breath, wheezing Cardiac: Denies edema, palpitations, chest pain GI: Denies abdominal pain, vomiting reports nausea MSK: Denies back pain, neck pain Skin: Denies rash, jaundice Neuro: Denies headache, dizziness Psychiatric: Denies SI/HI Heart Score: Risk Factors: Risk Factors: DM, Current or recent (<one month) smoker, HTN, HLP, family history of CAD, obesity. Risk Scores: Score 0 - 3: 2.5% MACE over next 6 weeks - Discharge Home Score 4 - 6: 20.3% MACE over next 6 weeks - Admit for Clinical Observation Score 7 - 10: 72.7% MACE over next 6 weeks - Early Invasive Strategies Current Medications: Current Medications Medications (Trade) Dose Ordered Sig/Rell Start Time Stop Time Status Last Admin Dose Admin Sodium Chloride 1,000 ml @ 1,000 mls/hr 1X ONCE 06/19/20 23:15 06/20/20 00:14 06/19/20 23:37 1,000 MLS/HR Allergies: Allergies: Allergies Coded Allergies Type Severity Reaction Last Updated Verified codeine Adverse Reaction Intermediate "HYPERVENTILATE" 08/10/17 Yes ibuprofen Adverse Reaction Intermediate "SICK" 08/10/17 Yes Physical Exam: PE: General: Awake, alert, NAD. Well Nourished, well hydrated. Cooperative HEENT: Atraumatic, EOMI, PERRL, airway patent, moist oral mucosa Neck: Supple, trachea midline Respiratory: CTA bilaterally, normal effort, no wheezing/crackles CV: RRR, no murmur, cap refill <2 GI: Soft, nondistended, nontender, no masses MSK: No obvious deformities Skin: Warm, dry, intact Neuro: A&O x3, speech NL, sensory and motor grossly intact, no focal deficits Psych: Normal affect, normal mood, not suicidal or homicidal Current Patient Data: Labs: Laboratory Tests Test 06/19/20 20:41 06/19/20 21:42 06/19/20 22:30 Glucose (Fingerstick) 145 mg/dL (70-99) H Urine Collection Type Unknown Urine Color Yellow Urine Clarity Clear Urine pH 5.0 (<5.0-8.0) Urine Specific [place] 1.025 (1.000-1.030) Urine Protein Negative mg/dL (NEG-TRACE) Urine Glucose (UA) Negative mg/dL (NEG) Urine Ketones (Stick) Trace mg/dL (NEG) Urine Blood Negative (NEG) Urine Nitrite Negative (NEG) Urine Bilirubin Negative (NEG) Urine Urobilinogen Dipstick 1.0 mg/dL (0.2 mg/dL) Urine Leukocyte Esterase Negative (NEG) Urine RBC Occ /HPF (0-2) Urine WBC 1-4 /HPF (0-4) Urine Squamous Epithelial Cells Mod /LPF Urine Bacteria Few /HPF (0-FEW) Urine Hyaline Casts Moderate /HPF Urine Mucus Mod /LPF Urine Yeast Present /HPF White Blood Count 8.1 x10^3/uL (4.0-11.0) Red Blood Count 5.17 x10^6/uL (3.50-5.40) Hemoglobin 13.7 g/dL (12.0-15.5) Hematocrit 42.1 % (36.0-47.0) Mean Corpuscular Volume 81 fL (79-100) Mean Corpuscular Hemoglobin 27 pg (25-35) Mean Corpuscular Hemoglobin Concent 33 g/dL (31-37) Red Cell Distribution Width 14.5 % (11.5-14.5) Platelet Count 184 x10^3/uL (140-400) Neutrophils (%) (Auto) 52 % (31-73) Lymphocytes (%) (Auto) 37 % (24-48) Monocytes (%) (Auto) 8 % (0-9) Eosinophils (%) (Auto) 1 % (0-3) Basophils (%) (Auto) 1 % (0-3) Neutrophils # (Auto) 4.2 x10^3/uL (1.8-7.7) Lymphocytes # (Auto) 3.0 x10^3/uL (1.0-4.8) Monocytes # (Auto) 0.7 x10^3/uL (0.0-1.1) Eosinophils # (Auto) 0.1 x10^3/uL (0.0-0.7) Basophils # (Auto) 0.1 x10^3/uL (0.0-0.2) Sodium Level 140 mmol/L (136-145) Potassium Level 4.2 mmol/L (3.5-5.1) Chloride Level 105 mmol/L (98-107) Carbon Dioxide Level 26 mmol/L (21-32) Anion Gap 9 (6-14) Blood Urea Nitrogen 26 mg/dL (7-20) H Creatinine 1.3 mg/dL (0.6-1.0) H Estimated GFR (Cockcroft-Gault) 48.6 BUN/Creatinine Ratio 20 (6-20) Glucose Level 176 mg/dL (70-99) H Calcium Level 9.8 mg/dL (8.5-10.1) Total Bilirubin 0.3 mg/dL (0.2-1.0) Aspartate Amino Transferase (AST) 29 U/L (15-37) Alanine Aminotransferase (ALT) 43 U/L (14-59) Alkaline Phosphatase 74 U/L (46-116) Total Protein 7.1 g/dL (6.4-8.2) Albumin 3.4 g/dL (3.4-5.0) Albumin/Globulin Ratio 0.9 (1.0-1.7) L Laboratory Tests 06/19/20 22:30 Laboratory Tests 06/19/20 22:30 Vital Signs: Vital Signs Date Time Temp Pulse Resp B/P (MAP) Pulse Ox O2 Delivery O2 Flow Rate FiO2 06/19/20 21:05 97.9 81 16 165/71 (102) 96 Room Air 97.9 EKG: EKG: [] Radiology/Procedures: Radiology/Procedures: [] Course & Med Decision Making: Course & Med Decision Making Pertinent Labs and Imaging studies reviewed. (See chart for details) Patient 74-year-old female presents to the emergency room after reportedly having a low temperature of 94 and a high glucose. Glucose is now normal. Temperature is also normal at this time. Work-up was ordered including CBC, BMP, UA. Patient is dehydrated and was given fluids. She will be discharged home on antibiotics for UTI. Patient was stable while in the emergency room. Upon discharge patient is feeling completely back to normal. Patient's test results and vitals while in the ED were fully reviewed and discussed with the patient. Patient is stable and at this time does not need admission to the hospital. We have discussed strict return precautions and the importance of following up with their Primary Care Physician. Patient stated understanding and was given an opportunity to ask any questions. Patient is in agreement with plan. Dragon Disclaimer: [employer] Disclaimer: This electronic medical record was generated, in whole or in part, using a voice recognition dictation system. Departure Departure Impression: Primary Impression: Dehydration Additional Impression: UTI (urinary tract infection) Disposition: 01 HOME, SELF-CARE Condition: STABLE Referrals: ZOILA DERAS MD (PCP) Patient Instructions: Dehydration, Adult, [id number], Urinary Tract Infection Scripts Cephalexin (KEFLEX) 500 Mg Capsule 1 CAP PO Q12HR for 7 Days, #14 CAP 0 Refills Prov: DAYNE HICKEY MD 06/19/20 Justicifation of Admission Dx: Justifications for Admission: Justification of Admission Dx: No DAYNE HICKEY MD Jun 19, 2020 23:48
[2020-06-20 00:28] VITALS: BP 148/67
== END 2020-06-20 00:38 | disposition home or self-care (01) ==
LOC: ER 19:24
DX: N39.0 Urinary tract infection, site not specified (principal); E86.0 Dehydration; R11.0 Nausea; F41.9 Anxiety disorder, unspecified; E11.9 Type 2 diabetes mellitus without complications; E78.00 Pure hypercholesterolemia, unspecified; I10 Essential (primary) hypertension; Z90.49 Acquired absence of other specified parts of digestive tract; Z98.51 Tubal ligation status; Z87.891 Personal history of nicotine dependence; Z98.890 Other specified postprocedural states
CPT/HCPCS: 36415; 80053; 81001; 82962; 85025; 96360; 99285; J7030

== ENCOUNTER 2021-03-17 09:05 | Emergency (ER) | payer MEDICARE, MEDICAID ==
[~2021-03-17] VITALS: Ht 162.6 cm; Wt 103.1 kg
[~2021-03-17 09:05] MED LIST changes: +AMLO-186 PO; -AMLO5TAB10 PO; +CEPH-264 PO
[2021-03-17] MEDS ORDERED: METH4TAB2 PO (10:35)
[2021-03-17] MEDS ORDERED: LIDO700A21 TP (10:35)
--- NOTE | 2021-03-17 10:35 | PHYS DOC ---
Past Medical History Past Medical History: Anxiety, Cancer, Diabetes-Type II, High Cholesterol, Hypertension, Other Additional Past Medical Histor: MACULAR DEGENERATION, GOUT, PANIC ATTACKS Past Surgical History: Cholecystectomy, Tubal ligation, Other Additional Past Surgical Histo: LT BREAST REDUCTION, EYE PROCEDURES,L)masectomy.R)finger fx repair Smoking Status: Former Smoker Alcohol Use: None Drug Use: None General Adult EDM: Chief Complaint: UPPER EXTREMITY PAIN HPI: HPI: Patient is a 75 year old Female who presents with shooting right arm pain that goes up the ulnar side of the arm since Tuesday. She states that she has to use that arm to lift and push herself up out of the bed a lot. She states the pain is worse with movement. 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 She denies any numbness or tingling. She rates her pain about 8 out of 10. She denies any kind of injury. She denies any swelling. She has a history of anxiety, cancer, macular degenerat ion, gout, mastectomy, panic attack, high cholesterol, hypertension, cholecystectomy. Patient denies chest pain, shortness of air, abdominal pain, fall, injury, dizziness, headache, nausea, vomiting, vision change. Review of Systems: Review of Systems: Constitutional: Denies fever or chills. [] Eyes: Denies change in visual acuity. [] HENT: Denies nasal congestion or sore throat. [] Respiratory: Denies cough or shortness of breath. [] Cardiovascular: Denies chest pain or edema. [] GI: Denies abdominal pain, nausea, vomiting, bloody stools or diarrhea. [] : Denies dysuria. [] Musculoskeletal: Denies back pain or joint pain. + Right arm pain [] Integument: Denies rash. [] Neurologic: Denies headache, focal weakness or sensory changes. [] Endocrine: Denies polyuria or polydipsia. [] Lymphatic: Denies swollen glands. [] Psychiatric: Denies depression or anxiety. [] Heart Score: C/O Chest Pain: No Risk Factors: Risk Factors: DM, Current or recent (<one month) smoker, HTN, HLP, family history of CAD, obesity. Risk Scores: Score 0 - 3: 2.5% MACE over next 6 weeks - Discharge Home Score 4 - 6: 20.3% MACE over next 6 weeks - Admit for Clinical Observation Score 7 - 10: 72.7% MACE over next 6 weeks - Early Invasive Strategies Allergies: Allergies: Allergies Coded Allergies Type Severity Reaction Last Updated Verified codeine Adverse Reaction Intermediate "HYPERVENTILATE" 08/10/17 Yes ibuprofen Adverse Reaction Intermediate "SICK" 08/10/17 Yes Physical Exam: PE: Constitutional: Well developed, well nourished, no acute distress, non-toxic appearance. [] HENT: Normocephalic, atraumatic, bilateral external ears normal, oropharynx moist, no oral exudates, nose normal. [] Eyes: PERRLA, EOMI, conjunctiva normal, no discharge. [] Neck: Normal range of motion, no tenderness, supple, no stridor. [] Cardiovascular:Heart rate regular rhythm, no murmur [] Lungs & Thorax: Bilateral breath sounds clear to auscultation [] Abdomen: Bowel sounds normal, soft, no tenderness, no masses, no pulsatile masses. [] Skin: Warm, dry, no erythema, no rash. [] Back: No tenderness, no CVA tenderness. [] Extremities: No tenderness, no cyanosis, no clubbing, ROM intact, no edema. [] Neurologic: Alert and oriented X 3, normal motor function, normal sensory function, no focal deficits noted. [] Psychologic: Affect normal, judgement normal, mood normal. Normal physical exam [] Current Patient Data: Vital Signs: Vital Signs Date Time Temp Pulse Resp B/P (MAP) Pulse Ox O2 Delivery O2 Flow Rate FiO2 03/17/21 09:19 98.2 85 22 187/87 (120) 96 Room Air 98.2 EKG: EK and read by Dr. Chapa is sinus rhythm with some LVH repolarization. When compared to last EKG it is the same in 2019. Radiology/Procedures: Radiology/Procedures: [] Course & Med Decision Making: Course & Med Decision Making Pertinent Labs and Imaging studies reviewed. (See chart for details) See HPI. Alert and oriented x4. Ambulatory with a steady gait. Speaks in full clear sentences. Full range of motion of all extremities in all joints. No joint of deformity, laxity, swelling, redness, heat. No tenderness to the extremity. No edema to the extremity. Radial pulses strong are present. She can wiggle all fingers and she does have equal strength bilaterally. She states that the pain goes from the top of her shoulder all the way down into the fingertips. [] Darren Disclaimer: Darren Disclaimer: This electronic medical record was generated, in whole or in part, using a voice recognition dictation system. Departure Departure Impression: Primary Impression: Cervical radicular pain Disposition: HOME / SELF CARE / HOMELESS Condition: STABLE Referrals: ZOILA DERAS MD (PCP) Patient Instructions: Cervical Radiculopathy Additional Instructions: Follow-up with your primary care provider soon as possible. Use medication as prescribed. Also try heating pad but remember do not put the heating pad over the lidocaine patches. If you begin having chest pain, shortness of breath or worsening symptoms return to emergency room. Scripts Methylprednisolone (MEDROL) 4 Mg Tab.ds.pk 1 PKG PO UD, #1 PKG Prov: JO-ANN NOLASCO APRN 03/17/21 Lidocaine (Lidocaine PATCH ) 1 Each Adh..patch 1 EACH TP DAILY for FOR LOCAL PAIN, #10 PATCH REMOVE AFTER 12 HOURS Prov: JO-ANN NOLASCO APRN 03/17/21 JO-ANN NOLASCO APRN March 17, 2021 10:35
[2021-03-17 11:00] VITALS: BP 153/70
--- NOTE | 2021-03-17 15:52 | EKG ---
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
== END 2021-03-17 11:07 | disposition home or self-care (01) ==
LOC: ER 09:05
DX: M54.12 Radiculopathy, cervical region (principal); E11.9 Type 2 diabetes mellitus without complications; E78.00 Pure hypercholesterolemia, unspecified; I10 Essential (primary) hypertension; M10.9 Gout, unspecified; Z87.891 Personal history of nicotine dependence; Z88.5 Allergy status to narcotic agent; Z88.8 Allergy status to other drugs, medicaments and biological substances
CPT/HCPCS: 93005; 99283

== ENCOUNTER 2021-06-01 05:08 | Emergency (ER) | payer OTHER, MEDICAID ==
[~2021-06-01] VITALS: Ht 167.6 cm; Wt 100.0 kg
[~2021-06-01 05:08] MED LIST changes: +LIDO700A21 TP; +METH4TAB2 PO
[2021-06-01] MEDS ORDERED: LIDOCAINE (700MG/PATCH) PATCH. TD ONE (07:00)
[2021-06-01] MEDS ORDERED: METHOCARBAMOL 750 MG TABLET PO ONE (07:00)
[2021-06-01] MEDS ORDERED: METH-561 PO (07:59)
--- NOTE | 2021-06-01 07:59 | ED.ADGEN ---
Past Medical History Past Medical History: Anxiety, Cancer, Diabetes-Type II, High Cholesterol, Hypertension, Other Additional Past Medical Histor: MACULAR DEGENERATION, GOUT, PANIC ATTACKS Past Surgical History: Cholecystectomy, Tubal ligation, Other Additional Past Surgical Histo: LT BREAST REDUCTION, EYE PROCEDURES,L)masectomy.R)finger fx repair Smoking Status: Former Smoker Alcohol Use: None Drug Use: None General Adult EDM: Chief Complaint: UPPER EXTREMITY PAIN HPI: HPI: Patient is a 75 year old [f__sex] who presents with [] Review of Systems: Review of Systems: Constitutional: Denies fever or chills. [] Eyes: Denies change in visual acuity. [] HENT: Denies nasal congestion or sore throat. [] Respiratory: Denies cough or shortness of breath. [] Cardiovascular: Denies chest pain or edema. [] GI: Denies abdominal pain, nausea, vomiting, bloody stools or diarrhea. [] : Denies dysuria. [] Musculoskeletal: Denies back pain or joint pain. [] Integument: Denies rash. [] Neurologic: Denies headache, focal weakness or sensory changes. [] Endocrine: Denies polyuria or polydipsia. [] Lymphatic: Denies swollen glands. [] Psychiatric: Denies depression or anxiety. [] Current Medications: Current Medications Medications (Trade) Dose Ordered Sig/Rell Start Time Stop Time Status Last Admin Dose Admin Lidocaine (Lidoderm) 1 patch 1X ONCE 06/01/21 07:00 06/01/21 07:01 DC 06/01/21 07:07 1 PATCH Methocarbamol (Robaxin) 750 mg 1X ONCE 06/01/21 07:00 06/01/21 07:01 DC 06/01/21 07:09 750 MG Allergies: Allergies: Allergies Coded Allergies Type Severity Reaction Last Updated Verified codeine Adverse Reaction Intermediate "HYPERVENTILATE" 08/10/17 Yes ibuprofen Adverse Reaction Intermediate "SICK" 08/10/17 Yes Physical Exam: PE: Constitutional: Well developed, well nourished, no acute distress, non-toxic appearance. [] HENT: Normocephalic, atraumatic, bilateral external ears normal, oropharynx moist, no oral exudates, nose normal. [] Eyes: PERRLA, EOMI, conjunctiva normal, no discharge. [] Neck: Normal range of motion, no tenderness, supple, no stridor. [] Cardiovascular:Heart rate regular rhythm, no murmur [] Lungs & Thorax: Bilateral breath sounds clear to auscultation [] Abdomen: Bowel sounds normal, soft, no tenderness, no masses, no pulsatile masses. [] Skin: Warm, dry, no erythema, no rash. [] Back: No tenderness, no CVA tenderness. [] Extremities: No tenderness, no cyanosis, no clubbing, ROM intact, no edema. [] Neurologic: Alert and oriented X 3, normal motor function, normal sensory function, no focal deficits noted. [] Psychologic: Affect normal, judgement normal, mood normal. [] Current Patient Data: Vital Signs: Vital Signs Date Time Temp Pulse Resp B/P (MAP) Pulse Ox O2 Delivery O2 Flow Rate FiO2 06/01/21 09:05 80 18 131/79 (96) 93 06/01/21 05:41 Room Air 06/01/21 05:23 98.7 98.7 EKG: EKG: [] Heart Score: Risk Factors: Risk Factors: DM, Current or recent (<one month) smoker, HTN, HLP, family history of CAD, obesity. Risk Scores: Score 0 - 3: 2.5% MACE over next 6 weeks - Discharge Home Score 4 - 6: 20.3% MACE over next 6 weeks - Admit for Clinical Observation Score 7 - 10: 72.7% MACE over next 6 weeks - Early Invasive Strategies Radiology/Procedures: Radiology/Procedures: [] Course & Med Decision Making: Course & Med Decision Making Pertinent Labs and Imaging studies reviewed. (See chart for details) [] Dragon Disclaimer: Dragon Disclaimer: This electronic medical record was generated, in whole or in part, using a voice recognition dictation system. Departure Departure Impression: Primary Impression: Cervical radicular pain Disposition: HOME / SELF CARE / HOMELESS Condition: STABLE Referrals: ZOILA DERAS MD (PCP) Patient Instructions: Cervical Radiculopathy Scripts Methocarbamol (METHOCARBAMOL) 500 Mg Tablet 500 MG PO QID PRN for MUSCLE PAIN for 5 Days, #20 TAB Prov: DAYNE HICKEY MD 06/01/21 DAYNE HICKEY MD Jun 01, 2021 07:59
[2021-06-01 09:05] VITALS: BP 131/79
--- NOTE | 2021-06-01 09:12 | RAD ---
EXAM: Cervical spine CT without contrast. HISTORY: Radiculopathy. TECHNIQUE: Computed tomographic images of the cervical spine were obtained without contrast. Multipla gurpreet reformatting was performed. *One or more of the following individualized dose reduction techniques were utilized for this examina tion: 1. Automated exposure control. 2. Adjustment of the mA and/or kV according to patient size. 3. Use of iterative reconstruction technique. COMPARISON: None. FINDINGS: There is mild cervical kyphosis. There is no significant listhesis. There is degenerative e ndplate remodeling with disc space narrowing and osteophytosis primarily at C3-4 to C5 and C5-C6. The re is multilevel facet arthropathy. There is no fracture or suspicious osseous lesion. There are few small endplate Schmorl's nodes. The skull base is unremarkable. There is a prominent thyroid. No disc rete nodule is seen. The lung apices are unremarkable. At C2-C3, there is mild left facet arthropathy. There is no stenosis. At C3-C4, there is a disc bulge and endplate remodeling. There is left uncovertebral arthropathy. The re is mild left foraminal stenosis. At C4-C5, there is a disc bulge and endplate remodeling. There is right uncovertebral arthropathy. Th ere is mild right foraminal stenosis. At C5-C6, is a disc bulge and endplate remodeling. There is bilateral uncovertebral arthropathy. Ther e is minimal bilateral foraminal stenosis. At C6-C7, there is a disc bulge and endplate remodeling. There is no stenosis. IMPRESSION: 1. Multilevel degenerative change involving the cervical spine, described in detail above. This resul ts in foraminal stenosis at the aforementioned levels. 2. No acute osseous finding. Electronically signed by: Albania Watson MD (06/01/2021 9:10 AM) [id number]
--- NOTE | 2021-06-02 03:27 | EKG ---
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
== END 2021-06-01 09:40 | disposition home or self-care (01) ==
LOC: ER 05:08
DX: M54.12 Radiculopathy, cervical region (principal); E78.00 Pure hypercholesterolemia, unspecified; E11.9 Type 2 diabetes mellitus without complications; I10 Essential (primary) hypertension; M10.9 Gout, unspecified; Z87.891 Personal history of nicotine dependence; Z88.5 Allergy status to narcotic agent; Z88.8 Allergy status to other drugs, medicaments and biological substances
CPT/HCPCS: 72125; 93005; 99284-25

== ENCOUNTER 2021-11-25 03:20 | Inpatient (IN) | payer OTHER, MEDICAID ==
[~2021-11-25] VITALS: Ht 162.6 cm; Wt 102.1 kg
[~2021-11-25 03:20] MED LIST changes: +ATOR40TA59 PO; +DEXA4TAB63 PO; +DOXY100T PO; +DULA1.5P SQ; +FLUC150T6 PO; +GABA100C6 PO; +HYDR12.58 PO; +LEVO5TAB2 PO; +METH-561 PO; +OLME5TAB6 PO; +TRIA15OI TP
--- NOTE | 2021-11-25 03:47 | ED.ADGEN ---
Past Medical History Past Medical History: Anxiety, Cancer, Diabetes-Type II, High Cholesterol, Hypertension, Other Additional Past Medical Histor: MACULAR DEGENERATION, GOUT, PANIC ATTACKS Past Surgical History: Cholecystectomy, Tubal ligation, Other Additional Past Surgical Histo: LT BREAST REDUCTION, EYE PROCEDURES,L)masectomy.R)finger fx repair Smoking Status: Former Smoker Alcohol Use: None Drug Use: None General Adult EDM: Chief Complaint: Congestion HPI: HPI: Patient is a 76 year old 76-year-old female coming in for congestion and left-sided chest pain. Describes the pain as sharp. States she thinks it feels like pain she had when she had a pinched nerve. Patient states she smoked marijuana to try to alleviate the pain but it did not work. Patient was diagnosed with COVID-19 6 days ago that hospitalized, was released 3 days ago. Unsure she has had any fevers. Denies any GI complaints. Has had a productive cough. Review of Systems: Review of Systems: All other systems within normal limits except for as noted in the HPI Current Medications: Current Medications Medications (Trade) Dose Ordered Sig/Rell Start Time Stop Time Status Last Admin Dose Admin Acetaminophen (Tylenol) 650 mg PRN Q4HRS PRN 11/25/21 05:30 11/26/21 05:29 Aspirin (Aspirin Chewable) 324 mg 1X ONCE 11/25/21 04:45 11/25/21 04:46 DC 11/25/21 04:49 324 MG Dexamethasone Sodium Phosphate (Decadron) 10 mg DAILY 11/25/21 09:00 UNV Linezolid/Dextrose 300 ml @ 300 mls/hr Q12HR 11/25/21 09:00 UNV Morphine Sulfate (Morphine Sulfate) 4 mg PRN Q2HR PRN 11/25/21 05:30 11/26/21 05:29 Ondansetron HCl (Zofran) 4 mg PRN Q8HRS PRN 11/25/21 05:30 11/26/21 05:29 Piperacillin Sod/ Tazobactam Sod 3.375 gm/Sodium Chloride 50 ml @ 100 mls/hr Q6HRS 11/25/21 06:00 UNV Allergies: Allergies: Allergies Coded Allergies Type Severity Reaction Last Updated Verified codeine Adverse Reaction Intermediate "HYPERVENTILATE" 11/25/21 Yes ibuprofen Adverse Reaction Intermediate "SICK" 11/25/21 Yes Physical Exam: PE: Constitutional: Well developed, well nourished, no acute distress, non-toxic appearance. [] HENT: Normocephalic, atraumatic, bilateral external ears normal, nose normal. [] Eyes: PERRLA, conjunctiva normal, no discharge. [] Neck: No rigidity, supple, no stridor. [] Cardiovascular: Regular rate and rhythm, brisk cap refill [] Lungs & Thorax: Non labored symmetric respirations, no tachypnea or respiratory distress. De- satting to 89% on room air [] Abdomen: Soft, nondistended. Skin: Warm, dry, no erythema, no rash. [] Back: Unremarkable Extremities: No deformities, range of motion grossly intact, no lower extremity edema [] Neurologic: Alert and oriented X 3, no focal deficits noted. [] Psychologic: Affect normal, judgement normal, mood normal. [] Current Patient Data: Labs: Laboratory Tests Test 11/25/21 04:02 White Blood Count 8.9 x10^3/uL (4.0-11.0) Red Blood Count 4.90 x10^6/uL (3.50-5.40) Hemoglobin 12.8 g/dL (12.0-15.5) Hematocrit 39.5 % (36.0-47.0) Mean Corpuscular Volume 81 fL (79-100) Mean Corpuscular Hemoglobin 26 pg (25-35) Mean Corpuscular Hemoglobin Concent 33 g/dL (31-37) Red Cell Distribution Width 14.0 % (11.5-14.5) Platelet Count 261 x10^3/uL (140-400) Neutrophils (%) (Auto) 75 % (31-73) H Lymphocytes (%) (Auto) 18 % (24-48) L Monocytes (%) (Auto) 7 % (0-9) Eosinophils (%) (Auto) 0 % (0-3) Basophils (%) (Auto) 1 % (0-3) Neutrophils # (Auto) 6.7 x10^3/uL (1.8-7.7) Lymphocytes # (Auto) 1.6 x10^3/uL (1.0-4.8) Monocytes # (Auto) 0.6 x10^3/uL (0.0-1.1) Eosinophils # (Auto) 0.0 x10^3/uL (0.0-0.7) Basophils # (Auto) 0.1 x10^3/uL (0.0-0.2) D-Dimer (Lili) 0.48 ug/mlFEU (0.00-0.50) Sodium Level 136 mmol/L (136-145) Potassium Level 4.6 mmol/L (3.5-5.1) Chloride Level 103 mmol/L (98-107) Carbon Dioxide Level 26 mmol/L (21-32) Anion Gap 7 (6-14) Blood Urea Nitrogen 35 mg/dL (7-20) H Creatinine 1.2 mg/dL (0.6-1.0) H Estimated GFR (Cockcroft-Gault) 53.0 BUN/Creatinine Ratio 29 (6-20) H Glucose Level 255 mg/dL (70-99) H Lactic Acid Level 1.9 mmol/L (0.4-2.0) Calcium Level 9.2 mg/dL (8.5-10.1) Total Bilirubin 0.4 mg/dL (0.2-1.0) Aspartate Amino Transferase (AST) 23 U/L (15-37) Alanine Aminotransferase (ALT) 37 U/L (14-59) Alkaline Phosphatase 67 U/L (46-116) Troponin I High Sensitivity 338 ng/L (4-50) H SF-Gtb-Y-Type Natriuretic Peptide 674 pg/mL (0-449) H Total Protein 7.5 g/dL (6.4-8.2) Albumin 2.3 g/dL (3.4-5.0) L Albumin/Globulin Ratio 0.4 (1.0-1.7) L Lipase 239 U/L (73-393) Laboratory Tests 11/25/21 04:02 Laboratory Tests 11/25/21 04:02 Vital Signs: Vital Signs Date Time Temp Pulse Resp B/P (MAP) Pulse Ox O2 Delivery O2 Flow Rate FiO2 11/25/21 04:31 78 17 165/77 (106) 94 Nasal Cannula 2.0 11/25/21 03:27 98.6 98.6 EKG: EKG: Leg swelling" radiation with, left axis deviation, lateral T wave inversions unchanged from 09-16-22, no STEMI[] Heart Score: C/O Chest Pain: Yes HEART Score for Chest Pain: HEART Score for Chest Pain Response (Comments) Value History Moderately Suspicious 1 ECG Nonspecific Repolarizatio 1 Age > 65 2 Risk Factors >3 Risk Factors or Hx CAD 2 Troponin >3 x Normal Limit 2 Total 8 Risk Factors: Risk Factors: DM, Current or recent (<one month) smoker, HTN, HLP, family history of CAD, obesity. Risk Scores: Score 0 - 3: 2.5% MACE over next 6 weeks - Discharge Home Score 4 - 6: 20.3% MACE over next 6 weeks - Admit for Clinical Observation Score 7 - 10: 72.7% MACE over next 6 weeks - Early Invasive Strategies Radiology/Procedures: Radiology/Procedures: [facility] [address] [place], [place] [id number] IMAGING REPORT Signed PATIENT: VIRGILIO HICKEY ACCOUNT: [id number] : 1945 LOCATION: ER AGE: 76 SEX: F EXAM STATUS: REG ER ORD. PHYSICIAN: FLAVIA REYNOSO MD REASON: covid PROCEDURE: CHEST AP ONLY XR CHEST 1V Clinical Indication: Reason: covid / Comparison: AP chest November 16, 2021. Findings: The cardiomediastinal silhouette is normal. Mild bilateral perihilar airspace opacities. There is no pneumothorax. No pleural effusion is appreciated. No acute bone abnormality. IMPRESSION: Mild bilateral perihilar airspace disease. Electronically signed by: Ulisses Lou MD (11/25/2021 4:46 AM) [facility] DICTATED and SIGNED BY: ULISSES LOU MD DATE: 11/25/21 [id number] [] Course & Med Decision Making: Course & Med Decision Making Pertinent Labs and Imaging studies reviewed. (See chart for details) Patient does not have any normal home O2 requirements. Is satting 89% on room air. Has worsening chest x-ray. Troponin is elevated but is less than it was on previous admission, will continue to trend. Admitted to her primary care provider Dr. Graves [] Darren Disclaimer: Darren Disclaimer: This electronic medical record was generated, in whole or in part, using a voice recognition dictation system. Departure Departure Impression: Primary Impression: COVID-19 Additional Impressions: Chest pain Elevated troponin Disposition: ADMITTED INPATIENT Admitting Physician: MAKAYLA Condition: STABLE Referrals: ZOILA DERAS MD (PCP) Problem Qualifiers FLAVIA REYNOSO MD Nov 25, 2021 03:47
[2021-11-25 04:15] LABS: BASO # 0.1 x10^3/uL (0.0-0.2); BASO % 1 % (0-3); EOS % 0 % (0-3); HEMATOCRIT 39.5 % (36.0-47.0); HEMOGLOBIN 12.8 g/dL (12.0-15.5); LYMPH # 1.6 x10^3/uL (1.0-4.8); LYMPH % 18 % (24-48); MEAN CORPUSCULAR HEMOGLOBIN 26 pg (25-35); MEAN CORPUSCULAR HGB CONC 33 g/dL (31-37); MEAN CORPUSCULAR VOLUME 81 fL (79-100); MONO # 0.6 x10^3/uL (0.0-1.1); MONO % 7 % (0-9); NEUT # 6.7 x10^3/uL (1.8-7.7); NEUT % 75 % (31-73); PLATELET COUNT 261 x10^3/uL (140-400); WHITE BLOOD COUNT 8.9 x10^3/uL (4.0-11.0)
[2021-11-25 04:27] LABS: CALCIUM 9.2 mg/dL (8.5-10.1); CREATININE 1.2 mg/dL (0.6-1.0); POTASSIUM 4.6 mmol/L (3.5-5.1)
--- NOTE | 2021-11-25 04:28 | EKG ---
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
[2021-11-25 04:33] LABS: ALBUMIN 2.3 g/dL (3.4-5.0); ALBUMIN/GLOBULIN RATIO 0.4 (1.0-1.7); TOTAL BILIRUBIN 0.4 mg/dL (0.2-1.0); TOTAL PROTEIN 7.5 g/dL (6.4-8.2)
[2021-11-25] MEDS ORDERED: ASPIRIN CHEWABLE 81 MG TABLET. PO ONE (04:45)
--- NOTE | 2021-11-25 04:49 | RAD ---
XR CHEST 1V Clinical Indication: Reason: covid / Comparison: AP chest November 16, 2021. Findings: The cardiomediastinal silhouette is normal. Mild bilateral perihilar airspace opacities. There is no pneumothorax. No pleural effusion is appreciated. No acute bone abnormality. IMPRESSION: Mild bilateral perihilar airspace disease. Electronically signed by: Ulisses Lou MD (11/25/2021 4:46 AM) [facility]
[2021-11-25] MEDS ORDERED: ACETAMINOPHEN 325 MG TABLET. PO PRN (05:30)
[2021-11-25] MEDS ORDERED: ONDANSETRON PF 4 MG/2 ML VIAL. IVP PRN (05:30)
[2021-11-25] MEDS ORDERED: MORPHINE SULFATE 4 MG/ML INJ. IVP PRN (05:30)
[2021-11-25] MEDS ORDERED: DEXAMETHASONE SOD PHOS 20 MG/5 ML VIAL. IV SCH (05:35)
[2021-11-25] MEDS: PIPERACILLIN/TAZOBACTAM 3.375 GM in IV NORMAL SALINE 50ML 50 ML IV SCH ×4 (06:04→23:10)
--- NOTE | 2021-11-25 06:46 | NUR ---
The patient, VIRGILIO HICKEY, 76 y/o, F admitted by ZOILA DERAS MD, was given written information regarding hospital policies, unit procedures and contact persons. Valuables were checked and left with her.
[2021-11-25 07:59] VITALS: BP 172/81
[2021-11-25] MEDS ORDERED: hydrOXYzine 25 MG TABLET PO PRN (09:00)
[2021-11-25] MEDS ORDERED: ALPRAZolam 0.5 MG TABLET PO PRN (09:00)
[2021-11-25] MEDS ORDERED: NON FORMULARY ITEM (Dulaglutide (Trulicity) 1.5 MG) SQ SCH (09:00)
[2021-11-25] MEDS ORDERED: DEXTROSE 50% 25 GM / 50ML DISP.SYRIN. IV PRN (09:00)
[2021-11-25] MEDS ORDERED: REMDESIVIR LOAD in IV NORMAL SALINE 250ML TV IV ONE (09:00)
--- NOTE | 2021-11-25 09:09 | PDOC ---
Provider Note Date of Service: DATE: 11/25/21 TIME: 09:09 Provider Note Pt seen.H&P dictated.#[id number]. Justifications for Admission Other Justification ZOILA DERAS MD Nov 25, 2021 09:09
--- NOTE | 2021-11-25 09:31 | PDOC ---
CHERRI GUERRIER DISPLAY SPECIALIST 11/25/21 0931: CARDIO Progress Notes Date and Time Date of Service 11/25/2021 Time of Evaluation 0920 Subjective Subjective: No shortness of breath, No Palpitations, Other (has left sided chest pain ) Vitals Vitals Vital Signs Date Time Temp Pulse Resp B/P (MAP) Pulse Ox O2 Delivery O2 Flow Rate FiO2 11/25/21 07:59 98.1 73 172/81 (111) 92 98.1 11/25/21 05:30 20 Nasal Cannula 2.0 Weight Weight [ ] Laboratory Labs Laboratory Tests Test 11/25/21 04:02 11/25/21 08:05 11/25/21 09:25 White Blood Count 8.9 x10^3/uL (4.0-11.0) Red Blood Count 4.90 x10^6/uL (3.50-5.40) Hemoglobin 12.8 g/dL (12.0-15.5) Hematocrit 39.5 % (36.0-47.0) Mean Corpuscular Volume 81 fL (79-100) Mean Corpuscular Hemoglobin 26 pg (25-35) Mean Corpuscular Hemoglobin Concent 33 g/dL (31-37) Red Cell Distribution Width 14.0 % (11.5-14.5) Platelet Count 261 x10^3/uL (140-400) Neutrophils (%) (Auto) 75 % (31-73) Lymphocytes (%) (Auto) 18 % (24-48) Monocytes (%) (Auto) 7 % (0-9) Eosinophils (%) (Auto) 0 % (0-3) Basophils (%) (Auto) 1 % (0-3) Neutrophils # (Auto) 6.7 x10^3/uL (1.8-7.7) Lymphocytes # (Auto) 1.6 x10^3/uL (1.0-4.8) Monocytes # (Auto) 0.6 x10^3/uL (0.0-1.1) Eosinophils # (Auto) 0.0 x10^3/uL (0.0-0.7) Basophils # (Auto) 0.1 x10^3/uL (0.0-0.2) D-Dimer (Lili) 0.48 ug/mlFEU (0.00-0.50) Sodium Level 136 mmol/L (136-145) Potassium Level 4.6 mmol/L (3.5-5.1) Chloride Level 103 mmol/L (98-107) Carbon Dioxide Level 26 mmol/L (21-32) Anion Gap 7 (6-14) Blood Urea Nitrogen 35 mg/dL (7-20) Creatinine 1.2 mg/dL (0.6-1.0) Estimated GFR (Cockcroft-Gault) 53.0 BUN/Creatinine Ratio 29 (6-20) Glucose Level 255 mg/dL (70-99) Lactic Acid Level 1.9 mmol/L (0.4-2.0) Calcium Level 9.2 mg/dL (8.5-10.1) Total Bilirubin 0.4 mg/dL (0.2-1.0) Aspartate Amino Transf (AST/SGOT) 23 U/L (15-37) Alanine Aminotransferase (ALT/SGPT) 37 U/L (14-59) Alkaline Phosphatase 67 U/L (46-116) Troponin I High Sensitivity 338 ng/L (4-50) 329 ng/L (4-50) YW-Vjq-W-Type Natriuretic Peptide 674 pg/mL (0-449) Total Protein 7.5 g/dL (6.4-8.2) Albumin 2.3 g/dL (3.4-5.0) Albumin/Globulin Ratio 0.4 (1.0-1.7) Lipase 239 U/L (73-393) Glucose (Fingerstick) 270 mg/dL (70-99) Physical Exam HEENT: Neck Supple W Full Motion Chest: Symmetric LUNGS: Other (dimnished bases) Heart: RRR (SR) Abdomen: Soft N/T, Other (obese) Extremities: No Edema, No Calf Tenderness Neurology: alert, oriented, follow commands Assessment Assessment HPI: This is a 76 yo female admitted for complains of chest pain. She was noted positive for covid-19 10 days ago and I actually saw her at that time due to elevated troponin. Her troponin continues to be elevated but around the same range. she has been having coughing spells but with clear secretions. No fever or chills but at times with some nausea. No fever or chills. Her chest pain is left sided and easily reproducible with palpation and seems to be better when left side lying. She did fall prior to her last admission but CXR did not reveal any rib fractures or any healing areas, Denies any palpitations or significant SOA. Her LHC in 2019 did not reveal any CAD. 1. Atypical chest pain: noncardiac, MSK reproducible 2. Nontraumatic mechanical fall: not r/t to syncope nor arrhythmias 3. Covid-19: + on 11/16/2021 4. Mild troponin elevation in the setting of covid-19. Suspect type 2 demand mediated. EKG SR with the same morphology as in the past. Trop continues to be in the 300s high sensitivity. Myocarditis among the differential 5. CKD; possibly stage 3 6. HTN: labile 7. DM2: per PCP 8. Morbid obesity Recommendations Secondary prevention measures. Restart home BP regimen Obtain TTE. Could consider CT chest and note any rib fractures given her recent fall. Further ischemic eval pending TTE result Covid-19 treatment per PCP. Lidoderm patch in place Follow up with Dr. Grissom on Dec 25 1245PM Justicifation of Admission Dx: Justifications for Admission: Justification of Admission Dx: No KIERAN GRISSOM MD 11/25/21 1736: CARDIO Progress Notes Plan Plan Patient seen and examined. Agree with above nurse practitioner note. She has reproducible chest pain. Echocardiogram is unremarkable. Supportive care. CHERRI GUERRIER APRN Nov 25, 2021 09:31 KIERAN GRISSOM MD Nov 25, 2021 17:36
[2021-11-25] MEDS: TRIAMCINOLONE ACETONIDE 0.1% TOPICAL OINTMENT 15GM TUBE. TP SCH ×2 (10:00→20:18)
--- NOTE | 2021-11-25 10:03 | HP ---
DATE OF SERVICE: 11/25/2021 ADMIT DATE: 11/25/2021 PATIENT LOCATION: 524. REASON FOR ADMISSION TO THE HOSPITAL: COVID pneumonia, shortness of breath. HISTORY OF PRESENT ILLNESS: The patient is a 76-year-old female. The patient was diagnosed 6 days ago with COVID. The patient was in the hospital for 3 days and was discharged 3 days ago to home on doxycycline and dexamethasone. The patient was having more shortness of breath, came to the Emergency Room. X-ray shows pneumonia. She was slightly hypoxic, requiring 2 liters to keep more than 93% saturation. The patient was admitted to the hospital, was started now with remdesivir. She did not get remdesivir in the last admission, started on Zyvox and Zosyn. The patient also has slightly elevated troponin, high troponin 400 range. On last admission, a week ago her troponin was slightly high, was seen by Cardiology. The patient apparently had a cardiac cath 2 years ago, no major blockages. Stress test last year was negative with good left ventricular function and it was felt demand ischemia and recommended outpatient cardiac workup after the COVID is resolved. The patient denies any chest pain now; more cough and short of breath. OTHER PAST MEDICAL HISTORY: History of diabetes, hypertension, hyperlipidemia, anxiety, coronary artery disease. PAST SURGICAL HISTORY: Had breast surgery, mastectomy for cancer. ALLERGIES: CODEINE AND IBUPROFEN. PERSONAL HISTORY: Former smoker. Denies alcohol or drug abuse. REVIEW OF SYMPTOMS: Complains of shortness of breath. Denies any chest pain and no fever. Not able to take care of herself at home. PHYSICAL EXAMINATION: GENERAL: The patient is not in any distress. VITAL SIGNS: Temperature 98, pulse 80, respirations 20, blood pressure 139/79, 93% on 2 liters. HEENT: Head is atraumatic. Pupils equal. Oral cavity, no congestion. NECK: Supple. Thyroid not enlarged. JVD is not elevated. CHEST: Symmetrical. CARDIOVASCULAR: S1, S2. LUNGS: Few crackles at the base. ABDOMEN: Soft. No mass palpable. EXTERNAL GENITALIA: No Mares. RECTUM: Deferred. EXTREMITIES: No calf tenderness, no edema. NEUROLOGIC: Moving all extremities. No focal deficits noted. LABORATORY DATA: Shows a white count of 9, hemoglobin 13, platelets 261. D-dimer 0.48. Electrolytes: Sodium 136, potassium 4.6, chloride 103, bicarb 26, BUN 35, creatinine 1.2, glucose 255. Troponin was 338, it was 400 a week ago. BNP 674. Lactic acid 1.9. Chest x-ray shows bilateral infiltrates in the lung. FINAL IMPRESSION: 1. COVID pneumonia. 2. Demand ischemia. 3. Known history of coronary artery disease, but last cardiac catheterization 2 years ago was negative. 4. Insulin-dependent diabetes. 5. Anxiety and fibromyalgia. PLAN: At this time, the patient was admitted again because of hypoxia and was given oxygen, started on remdesivir, broad spectrum antibiotics. The patient was given doxycycline and dexamethasone last time. We will change it to Zyvox and Zosyn and IV Decadron and DVT prophylaxis with Lovenox, blood sugar fingerstick and see how she improves in the next 24-[address]: SANDIE/carmen TID: [id number]
[2021-11-25] MEDS: FLUTICASONE 50MCG/NASAL SPRAY 16GM BOTTLE. NS SCH (10:15)
[2021-11-25] MEDS: metFORMIN 500 MG TABLET PO SCH ×2 (10:16→17:11)
[2021-11-25] MEDS: CHOLECALCIFEROL (VITAMIN D3) 1,000 UNIT TABLET PO SCH (10:16)
[2021-11-25] MEDS: ENOXAPARIN 40 MG/0.4 ML SYRINGE. SQ SCH (10:16)
[2021-11-25] MEDS: GABAPENTIN 100 MG CAPSULE. PO SCH ×3 (10:16→19:57)
[2021-11-25] MEDS: ASPIRIN CHEWABLE 81 MG TABLET. PO SCH (10:16)
[2021-11-25] MEDS: LIDOCAINE (700MG/PATCH) PATCH. TP SCH (10:16)
[2021-11-25] MEDS: METHOCARBAMOL 500 MG TABLET PO SCH ×4 (10:17→19:56)
[2021-11-25] MEDS: hydroCHLOROthiazide 12.5 MG CAPSULE PO SCH (10:17)
[2021-11-25] MEDS: LOSARTAN POTASSIUM 25 MG TABLET. PO SCH (10:17)
[2021-11-25] MEDS: MECLIZINE HCL 12.5 MG TABLET. PO SCH ×3 (10:17→19:57)
[2021-11-25] MEDS: INSULIN GLARGINE SYRINGE. SQ SCH ×2 (10:36→20:05)
[2021-11-25 11:59] VITALS: BP 143/65
[2021-11-25] MEDS: INSULIN LISPRO 300 UNITS/3 ML VIAL. SQ SCH ×4 (12:27→17:54)
--- NOTE | 2021-11-25 13:15 | NUR ---
SW following. Discussed with RN, pt from home with family, 2L (uses oxygen at home), regular diet, independent, COVID-19 positive on 11/16/21. Cardiology following , Chest CT ordered. RN advised no SW needs, anticipates discharge in the next day or so. SW will continue to follow.
[2021-11-25 15:00] VITALS: BP 145/61
[2021-11-25] MEDS: DOCUSATE SODIUM 100 MG CAPSULE. PO SCH (17:55)
[2021-11-25 19:00] VITALS: BP 152/76
[2021-11-25] MEDS: ATORVASTATIN CALCIUM 40 MG TABLET. PO SCH (19:56)
[2021-11-25] MEDS: LACTOBACILLUS RHAMNOSUS GG 1 CAPSULE. PO SCH (19:56)
[2021-11-25] MEDS: CETIRIZINE HCL 10 MG TABLET. PO SCH (19:57)
[2021-11-25] MEDS: PATCH REMOVAL. MC SCH (20:18)
[2021-11-25 23:09] VITALS: BP 134/83
[2021-11-26 03:17] VITALS: BP 124/63
[2021-11-26] MEDS: PIPERACILLIN/TAZOBACTAM 3.375 GM in IV NORMAL SALINE 50ML 50 ML IV SCH ×3 (05:05→17:03)
[2021-11-26 07:00] VITALS: BP 158/88
[2021-11-26 07:56] LABS: BASO % 0 % (0-3); EOS % 0 % (0-3); HEMATOCRIT 40.1 % (36.0-47.0); HEMOGLOBIN 12.6 g/dL (12.0-15.5); LYMPH # 1.8 x10^3/uL (1.0-4.8); LYMPH % 22 % (24-48); MEAN CORPUSCULAR HEMOGLOBIN 25 pg (25-35); MEAN CORPUSCULAR HGB CONC 32 g/dL (31-37); MEAN CORPUSCULAR VOLUME 81 fL (79-100); MONO # 0.8 x10^3/uL (0.0-1.1); MONO % 10 % (0-9); NEUT # 5.4 x10^3/uL (1.8-7.7); NEUT % 67 % (31-73); PLATELET COUNT 295 x10^3/uL (140-400); RED BLOOD COUNT 4.98 x10^6/uL (3.50-5.40); RED CELL DISTRIBUTION WIDTH 14.5 % (11.5-14.5)
[2021-11-26] MEDS: INSULIN LISPRO 300 UNITS/3 ML VIAL. SQ SCH ×4 (08:00→17:03)
--- NOTE | 2021-11-26 08:30 | RAD ---
EXAM: CT Chest without IV contrast CLINICAL HISTORY: Reason: persistent chest pain, recent fall COMPARISON: 03/20/2015 TECHNIQUE: CT of the chest without intravenous contrast. Axial, coronal and sagittal reformatted imag es were generated. ---PQRS compliance statement - One or more of the following individualized dose reduction techniques were utilized for this study: 1. Automated exposure control 2. Adjustment of the mA and/or kV according to patient size 3. Use of iterative reconstruction technique--- FINDINGS: Lack of intravenous contrast limits evaluation of solid organs, vasculature, and lymph nodes. Chest: Heart is not enlarged. No pericardial effusion. Aortic calcifications are seen. No pleural effusion. No pneumothorax. Thyroid is grossly unremarkable. Within the constraints of this noncontrast examination, no mediastin al or hilar lymphadenopathy. No axillary lymphadenopathy. Changes of left axillary dissection are see n. Changes of left mastectomy are seen. Patchy parenchymal airspace opacities are seen bilaterally, likely consolidative process such as pneu monia, including viral pneumonia. Visualized Upper abdomen: Aortic calcifications are seen. Cholecystectomy clips are seen. Moderate co lonic stool content. Bones: No aggressive osseous lesion. IMPRESSION: 1. Bilateral parenchymal airspace opacities likely consolidative process such as pneumonia, includin g viral pneumonia. Imaging follow-up to resolution is recommended. 2. Coronary calcifications are seen. Electronically signed by: Eyal Godoy MD (11/26/2021 8:28 AM) BELKIS
[2021-11-26 08:38] LABS: CREATININE 1.3 mg/dL (0.6-1.0); GFR 48.3; POTASSIUM 4.7 mmol/L (3.5-5.1)
[2021-11-26] MEDS: GABAPENTIN 100 MG CAPSULE. PO SCH ×4 (08:56→21:40)
[2021-11-26] MEDS: INSULIN GLARGINE SYRINGE. SQ SCH ×2 (08:58→21:43)
[2021-11-26] MEDS: LIDOCAINE (700MG/PATCH) PATCH. TP SCH (08:59)
[2021-11-26] MEDS: ASPIRIN CHEWABLE 81 MG TABLET. PO SCH (09:00)
[2021-11-26] MEDS: METHOCARBAMOL 500 MG TABLET PO SCH ×4 (09:00→21:41)
[2021-11-26] MEDS: metFORMIN 500 MG TABLET PO SCH ×2 (09:00→17:02)
[2021-11-26] MEDS: ENOXAPARIN 40 MG/0.4 ML SYRINGE. SQ SCH (09:00)
[2021-11-26] MEDS: TRIAMCINOLONE ACETONIDE 0.1% TOPICAL OINTMENT 15GM TUBE. TP SCH ×2 (09:00→21:00)
[2021-11-26] MEDS: MECLIZINE HCL 12.5 MG TABLET. PO SCH ×3 (09:00→21:41)
[2021-11-26] MEDS ORDERED: DEXAMETHASONE SOD PHOS 4 MG/ML VIAL IV SCH (09:00)
[2021-11-26] MEDS: LACTOBACILLUS RHAMNOSUS GG 1 CAPSULE. PO SCH ×2 (09:00→21:40)
[2021-11-26] MEDS: hydroCHLOROthiazide 12.5 MG CAPSULE PO SCH (09:00)
[2021-11-26] MEDS: FLUTICASONE 50MCG/NASAL SPRAY 16GM BOTTLE. NS SCH (09:00)
[2021-11-26] MEDS: DOCUSATE SODIUM 100 MG CAPSULE. PO SCH (09:01)
[2021-11-26] MEDS: CHOLECALCIFEROL (VITAMIN D3) 1,000 UNIT TABLET PO SCH (09:01)
[2021-11-26] MEDS: LOSARTAN POTASSIUM 25 MG TABLET. PO SCH (09:01)
--- NOTE | 2021-11-26 09:07 | PDOC ---
PROGRESS NOTES Date of Service: DATE: 11/26/21 TIME: 09:04 Subjective Subjective no new problems Objective Objective Vital Signs Date Time Temp Pulse Resp B/P (MAP) Pulse Ox O2 Delivery O2 Flow Rate FiO2 11/26/21 09:01 75 158/88 11/26/21 08:00 Nasal Cannula 2.0 11/26/21 07:00 98.0 17 94 98.0 Intake and Output 11/26/21 07:00 Intake Total 800 ml Balance 800 ml Intake Oral 800 ml # Voids 5 Physical Exam Abdomen: Soft Heart: Normal S1, Normal S2 Extremities: No clubbing General: Alert HEENT: Atraumatic Lungs: Clear to auscultation MUSCULOSKELETAL: No swelling, Osteoarthritic changes both hands Neck: No JVD Neuro: Normal speech Psych/Mental Status: Mood NL Skin: No breakdown Diagnosis Problem List Problems Medical Problems: (1) Chest pain Status: Acute (2) Elevated troponin Status: Acute Assessment Assessment Problems Medical Problems: (1) Chest pain Status: Acute (2) Elevated troponin Status: Acute FINAL IMPRESSION: 1. COVID pneumonia. 2. Demand ischemia. 3. Known history of coronary artery disease, but last cardiac catheterization 2 years ago was negative. 4. Insulin-dependent diabetes. 5. Anxiety and fibromyalgia. PLAN: ECHO today CT chest today remdesivir+dexamethasone. zyvox+zosyn. At this time, the patient was admitted again because of hypoxia and was given oxygen, started on remdesivir, broad spectrum antibiotics. The patient was given doxycycline and dexamethasone last time. We will change it to Zyvox and Zosyn and IV Decadron and DVT prophylaxis with Lovenox, blood sugar fingerstick and see how she improves in the next 24-48 hours. Plan Plan of Care Problems Medical Problems: (1) Chest pain Status: Acute (2) Elevated troponin Status: Acute Comment Review of Relevant I have reviewed the following items dixon (where applicable) has been applied. Labs Laboratory Tests Test 11/25/21 09:25 11/25/21 11:10 11/25/21 12:08 11/25/21 17:42 Glucose (Fingerstick) 270 mg/dL (70-99) 421 mg/dL (70-99) 307 mg/dL (70-99) Troponin I High Sensitivity 347 ng/L (4-50) Test 11/25/21 19:46 11/26/21 07:05 11/26/21 08:32 Glucose (Fingerstick) 266 mg/dL (70-99) 99 mg/dL (70-99) White Blood Count 8.0 x10^3/uL (4.0-11.0) Red Blood Count 4.98 x10^6/uL (3.50-5.40) Hemoglobin 12.6 g/dL (12.0-15.5) Hematocrit 40.1 % (36.0-47.0) Mean Corpuscular Volume 81 fL (79-100) Mean Corpuscular Hemoglobin 25 pg (25-35) Mean Corpuscular Hemoglobin Concent 32 g/dL (31-37) Red Cell Distribution Width 14.5 % (11.5-14.5) Platelet Count 295 x10^3/uL (140-400) Neutrophils (%) (Auto) 67 % (31-73) Lymphocytes (%) (Auto) 22 % (24-48) Monocytes (%) (Auto) 10 % (0-9) Eosinophils (%) (Auto) 0 % (0-3) Basophils (%) (Auto) 0 % (0-3) Neutrophils # (Auto) 5.4 x10^3/uL (1.8-7.7) Lymphocytes # (Auto) 1.8 x10^3/uL (1.0-4.8) Monocytes # (Auto) 0.8 x10^3/uL (0.0-1.1) Eosinophils # (Auto) 0.0 x10^3/uL (0.0-0.7) Basophils # (Auto) 0.0 x10^3/uL (0.0-0.2) Sodium Level 139 mmol/L (136-145) Potassium Level 4.7 mmol/L (3.5-5.1) Chloride Level 103 mmol/L (98-107) Carbon Dioxide Level 26 mmol/L (21-32) Anion Gap 10 (6-14) Blood Urea Nitrogen 34 mg/dL (7-20) Creatinine 1.3 mg/dL (0.6-1.0) Estimated GFR (Cockcroft-Gault) 48.3 Glucose Level 104 mg/dL (70-99) Calcium Level 9.0 mg/dL (8.5-10.1) Microbiology 11/25/21 Blood Culture - Preliminary, Resulted NO GROWTH AFTER 1 DAY Medications Current Medications Amlodipine Besylate (Norvasc) 5 mg DAILY PO Last administered on 11/26/21 09:01; Start 11/25/21 at 10:00 Aspirin (Aspirin Chewable) 81 mg DAILY PO Last administered on 11/26/21at 09:00; Start 11/25/21 at 10:00 Atorvastatin Calcium (Lipitor) 40 mg QHS PO Last administered on 11/25/21at 19:56; Start 11/25/21 at 21:00 Cetirizine HCl (ZyrTEC) 10 mg QHS PO Last administered on 11/25/21 19:57; Start 11/25/21 at 21:00 Dexamethasone Sodium Phosphate (Decadron) 6 mg DAILY IV Last administered on 11/26/21 08:59; Start 11/26/21 at 09:00 Docusate Sodium (Colace) 100 mg DAILY PO Last administered on 11/26/21at 09:01; Start 11/25/21 at 18:00 Enoxaparin Sodium (Lovenox 40mg Syringe) 40 mg Q24H SQ Last administered on 11/26/21at 09:00; Start 11/25/21 at 10:00 Fluticasone Propionate (Flonase) 2 spray DAILY NS Last administered on 11/26/21 09:00; Start 11/25/21 at 11:00 Gabapentin (Neurontin) 100 mg TID PO Last administered on 11/25/21 19:57; Start 11/25/21 at 10:00 Hydrochlorothiazide (Microzide) 12.5 mg DAILY PO Last administered on 11/26/21at 09:00; Start 11/25/21 at 10:00 Insulin Glargine (Lantus Syringe) 25 unit BID SQ Last administered on 11/26/21 08:58; Start 11/25/21 at 11:00 Insulin Human Lispro (HumaLOG) 0-5 UNITS TIDWMEALS SQ Last administered on 11/25/21at 17:54; Start 11/25/21 at 12:00 Insulin Human Lispro (HumaLOG) 25 units TIDWMEALS SQ Last administered on 11/25/21at 17:54; Start 11/25/21 at 12:00 Lactobacillus Rhamnosus (Culturelle) 1 cap BID PO Last administered on 11/26/21at 09:00; Start 11/25/21 at 21:00 Lidocaine (Lidoderm) 1 patch DAILY TP Last administered on 11/26/21at 08:59; Start 11/25/21 at 10:00 Losartan Potassium (Cozaar) 25 mg DAILY PO Last administered on 11/26/21at 09:01; Start 11/25/21 at 11:00 Meclizine HCl (Antivert) 25 mg TID PO Last administered on 11/26/21at 09:00; Start 11/25/21 at 10:00 Metformin HCl (Glucophage) 1,000 mg BIDWMEALS PO Last administered on 11/26/21at 09:00; Start 11/25/21 at 10:00 Methocarbamol (Robaxin) 500 mg QID PO Last administered on 11/26/21at 09:00; Start 11/25/21 at 10:00 Miscellaneous (Lidoderm Patch Removal) 1 ea QHS ; Start 11/25/21 at 21:00 Remdesivir 100 mg/ Sodium Chloride 230 ml @ 460 mls/hr Q24H IV ; Start 11/26/21 at 09:00; Stop 11/29/21 at 09:29 Triamcinolone Acetonide (Kenalog 0.1%) 1 rishabh BID TP Last administered on 11/25/21at 10:00; Start 11/25/21 at 10:00 Vitamin D (Vitamin D3) 1,000 unit DAILY PO Last administered on 11/26/21at 09:01; Start 11/25/21 at 10:00 Vitals/I & O Vital Sign - Last 24 Hours 11/25/21 11/25/21 11/25/21 11/25/21 10:17 10:17 11:59 15:00 Temp 97.5 97.8 97.5 97.8 Pulse 73 73 76 76 Resp 20 20 B/P (MAP) 172/81 172/81 143/65 (91) 145/61 (89) Pulse Ox 93 92 O2 Delivery Nasal Cannula Nasal Cannula O2 Flow Rate 2.0 2.0 11/25/21 11/25/21 11/25/21 11/26/21 19:00 20:00 23:09 03:17 Temp 97.6 97.9 98.4 97.6 97.9 98.4 Pulse 74 71 73 Resp 18 20 18 B/P (MAP) 152/76 (101) 134/83 (100) 124/63 (83) Pulse Ox 92 91 92 O2 Delivery Nasal Cannula Nasal Cannula Nasal Cannula Nasal Cannula O2 Flow Rate 2.0 2.0 2.0 2.0 11/26/21 11/26/21 11/26/21 11/26/21 07:00 08:00 09:01 09:01 Temp 98.0 98.0 Pulse 75 75 75 Resp 17 B/P (MAP) 158/88 (111) 158/88 158/88 Pulse Ox 94 O2 Delivery Nasal Cannula Nasal Cannula O2 Flow Rate 2.0 2.0 Intake and Output 11/25/21 11/25/21 11/26/21 15:00 23:00 07:00 Intake Total 200 ml 600 ml Balance 200 ml 600 ml Justifications for Admission Other Justification ZOILA DERAS MD Nov 26, 2021 09:07
[2021-11-26 11:00] VITALS: BP 150/75
[2021-11-26] MEDS: REMDESIVIR 100mg in NORMAL SALINE 250ML X 4 DAYS IV SCH (12:02)
--- NOTE | 2021-11-26 12:15 | PDOC ---
CHERRI GUERRIER ASSISTANT FRONT OFFICE MANAGER 11/26/21 1215: CARDIO Progress Notes Date and Time Date of Service 11/26/2021 Time of Evaluation 0950 Subjective Subjective: No Chest Pain, No shortness of breath, No Palpitations Vitals Vitals Vital Signs Date Time Temp Pulse Resp B/P (MAP) Pulse Ox O2 Delivery O2 Flow Rate FiO2 11/26/21 11:00 97.5 76 17 150/75 (100) 95 Nasal Cannula 2.0 97.5 Weight Weight [ ] Input and Output Intake and Output Intake and Output 11/26/21 07:00 Intake Total 800 ml Balance 800 ml Intake Oral 800 ml # Voids 5 Laboratory Labs Laboratory Tests Test 11/25/21 17:42 11/25/21 19:46 11/26/21 07:05 11/26/21 08:32 Glucose (Fingerstick) 307 mg/dL (70-99) 266 mg/dL (70-99) 99 mg/dL (70-99) White Blood Count 8.0 x10^3/uL (4.0-11.0) Red Blood Count 4.98 x10^6/uL (3.50-5.40) Hemoglobin 12.6 g/dL (12.0-15.5) Hematocrit 40.1 % (36.0-47.0) Mean Corpuscular Volume 81 fL (79-100) Mean Corpuscular Hemoglobin 25 pg (25-35) Mean Corpuscular Hemoglobin Concent 32 g/dL (31-37) Red Cell Distribution Width 14.5 % (11.5-14.5) Platelet Count 295 x10^3/uL (140-400) Neutrophils (%) (Auto) 67 % (31-73) Lymphocytes (%) (Auto) 22 % (24-48) Monocytes (%) (Auto) 10 % (0-9) Eosinophils (%) (Auto) 0 % (0-3) Basophils (%) (Auto) 0 % (0-3) Neutrophils # (Auto) 5.4 x10^3/uL (1.8-7.7) Lymphocytes # (Auto) 1.8 x10^3/uL (1.0-4.8) Monocytes # (Auto) 0.8 x10^3/uL (0.0-1.1) Eosinophils # (Auto) 0.0 x10^3/uL (0.0-0.7) Basophils # (Auto) 0.0 x10^3/uL (0.0-0.2) Sodium Level 139 mmol/L (136-145) Potassium Level 4.7 mmol/L (3.5-5.1) Chloride Level 103 mmol/L (98-107) Carbon Dioxide Level 26 mmol/L (21-32) Anion Gap 10 (6-14) Blood Urea Nitrogen 34 mg/dL (7-20) Creatinine 1.3 mg/dL (0.6-1.0) Estimated GFR (Cockcroft-Gault) 48.3 Glucose Level 104 mg/dL (70-99) Calcium Level 9.0 mg/dL (8.5-10.1) Test 11/26/21 11:54 Glucose (Fingerstick) 268 mg/dL (70-99) Microbiology Micro Microbiology 11/25/21 Blood Culture - Preliminary, Resulted NO GROWTH AFTER 1 DAY Physical Exam HEENT: Neck Supple W Full Motion Chest: Symmetric LUNGS: Other (dimnished bases) Heart: RRR (SR) Abdomen: Soft N/T, Other (obese) Extremities: No Edema, No Calf Tenderness Neurology: alert, oriented, follow commands Assessment Assessment 1. Atypical chest pain: noncardiac, MSK reproducible 2. Nontraumatic mechanical fall: not r/t to syncope nor arrhythmias 3. Covid-19 Pneumonia: + on 11/16/2021. CT chest reviewed no rib fractures 4. Mild troponin elevation in the setting of covid-19. Suspect type 2 demand mediated. preliminary result TTE with preserved EF. 5. CKD; possibly stage 3 6. HTN: controlled 7. DM2: per PCP 8. Morbid obesity Recommendations Secondary prevention measures. Await full TTE report Covid-19 treatment per PCP. Lidoderm patch in place Follow up with Dr. Grissom on Dec 25 1245PM Outpt stress test once recovered from covid-19 Justicifation of Admission Dx: Justifications for Admission: Justification of Admission Dx: No KIERAN GRISSOM MD 11/26/21 1734: CARDIO Progress Notes Plan Plan The patient was seen and interviewed as well as examined at the bedside. The chart was reviewed. The case was discussed. Agree with the plan of care. CHERRI GUERRIER APRN Nov 26, 2021 12:15 KIERAN GRISSOM MD Nov 26, 2021 17:34
[2021-11-26 12:26] LABS: % ATYL 1 % (0-0); % BANDS 1 % (0-9); % LYMPHS 17 % (24-48); % MONOS 12 % (0-10); % SEGS 69 % (35-66)
[2021-11-26 12:27] LABS: PLT ESTIMATE ADEQUATE (ADEQUATE)
[2021-11-26 15:00] VITALS: BP 142/80
[2021-11-26 19:00] VITALS: BP 103/64
[2021-11-26] MEDS: PATCH REMOVAL. MC SCH (21:00)
[2021-11-26] MEDS: CETIRIZINE HCL 10 MG TABLET. PO SCH (21:40)
[2021-11-26] MEDS: ATORVASTATIN CALCIUM 40 MG TABLET. PO SCH (21:41)
[2021-11-26 23:27] VITALS: BP 150/80
[2021-11-27] MEDS: PIPERACILLIN/TAZOBACTAM 3.375 GM in IV NORMAL SALINE 50ML 50 ML IV SCH ×2 (00:03→05:33)
[2021-11-27 03:35] VITALS: BP 145/75
[2021-11-27 07:00] VITALS: BP 150/51
--- NOTE | 2021-11-27 08:30 | PDOC ---
PROGRESS NOTES Date of Service: DATE: 11/27/21 TIME: 08:28 Subjective Subjective anxious Objective Objective Vital Signs Date Time Temp Pulse Resp B/P (MAP) Pulse Ox O2 Delivery O2 Flow Rate FiO2 11/27/21 07:00 98.0 71 17 150/51 (84) 94 Nasal Cannula 2.0 98.0 Intake and Output 11/27/21 07:00 Intake Total 360 ml Balance 360 ml Intake Oral 360 ml # Voids 3 # Bowel Movements 3 Physical Exam Abdomen: Soft Heart: Normal S1, Normal S2 Extremities: No clubbing General: Alert HEENT: Atraumatic Lungs: Clear to auscultation MUSCULOSKELETAL: No swelling, Osteoarthritic changes both hands Neck: No JVD Neuro: Normal speech Psych/Mental Status: Mood NL Skin: No breakdown Diagnosis Problem List Problems Medical Problems: (1) Chest pain Status: Acute (2) Elevated troponin Status: Acute Assessment Assessment Problems Medical Problems: (1) Chest pain Status: Acute (2) Elevated troponin Status: Acute FINAL IMPRESSION: 1. COVID pneumonia. 2. Demand ischemia. 3. Known history of coronary artery disease, but last cardiac catheterization 2 years ago was negative. 4. Insulin-dependent diabetes. 5. Anxiety and fibromyalgia. PLAN:labs ok ECHO done report pending CT chest , suggestive of viral pneumonia remdesivir+dexamethasone.day #3 d/c iv zyvox+zosyn. dvt prevention with lovenox. Plan Plan of Care Problems Medical Problems: (1) Chest pain Status: Acute (2) Elevated troponin Status: Acute Comment Review of Relevant I have reviewed the following items dixon (where applicable) has been applied. Labs Laboratory Tests Test 11/26/21 08:32 11/26/21 11:54 11/26/21 16:44 11/26/21 19:20 Glucose (Fingerstick) 99 mg/dL (70-99) 268 mg/dL (70-99) 311 mg/dL (70-99) 323 mg/dL (70-99) Test 11/27/21 08:17 Glucose (Fingerstick) 173 mg/dL (70-99) Microbiology 11/25/21 Blood Culture - Preliminary, Resulted NO GROWTH AFTER 2 DAYS Medications Current Medications Dexamethasone Sodium Phosphate (Decadron) 6 mg DAILY IV Last administered on 11/26/21at 08:59; Start 11/26/21 at 09:00 Linezolid (Zyvox) 600 mg BID PO ; Start 11/27/21 at 09:00 Remdesivir 100 mg/ Sodium Chloride 230 ml @ 460 mls/hr Q24H IV Last administered on 11/26/21at 12:02; Start 11/26/21 at 09:00; Stop 11/29/21 at 09:29 Vitals/I & O Vital Sign - Last 24 Hours 11/26/21 11/26/21 11/26/21 11/26/21 09:01 09:01 11:00 15:00 Temp 97.5 98.0 97.5 98.0 Pulse 75 75 76 51 Resp 17 16 B/P (MAP) 158/88 158/88 150/75 (100) 142/80 (100) Pulse Ox 95 93 O2 Delivery Nasal Cannula Nasal Cannula O2 Flow Rate 2.0 2.0 11/26/21 11/26/21 11/26/21 11/27/21 19:00 20:00 23:27 03:35 Temp 97.9 97.7 97.9 97.9 97.7 97.9 Pulse 71 66 73 Resp 18 18 18 B/P (MAP) 103/64 (77) 150/80 (103) 145/75 (98) Pulse Ox 94 93 95 O2 Delivery Nasal Cannula Nasal Cannula Nasal Cannula Nasal Cannula O2 Flow Rate 2.0 2.0 2.0 2.0 11/27/21 07:00 Temp 98.0 98.0 Pulse 71 Resp 17 B/P (MAP) 150/51 (84) Pulse Ox 94 O2 Delivery Nasal Cannula O2 Flow Rate 2.0 Intake and Output 11/26/21 11/26/21 11/27/21 15:00 23:00 07:00 Intake Total 360 ml Balance 360 ml Justifications for Admission Other Justification ZOILA DERAS MD Nov 27, 2021 08:30
[2021-11-27] MEDS ORDERED: LINEZOLID 600 MG TABLET PO SCH (09:00)
[2021-11-27] MEDS: DOCUSATE SODIUM 100 MG CAPSULE. PO SCH (09:00)
[2021-11-27] MEDS: TRIAMCINOLONE ACETONIDE 0.1% TOPICAL OINTMENT 15GM TUBE. TP SCH ×2 (09:00→20:41)
[2021-11-27] MEDS: ENOXAPARIN 40 MG/0.4 ML SYRINGE. SQ SCH (09:29)
[2021-11-27] MEDS: LIDOCAINE (700MG/PATCH) PATCH. TP SCH (09:29)
[2021-11-27] MEDS: REMDESIVIR 100mg in NORMAL SALINE 250ML X 4 DAYS IV SCH (09:29)
[2021-11-27] MEDS: FLUTICASONE 50MCG/NASAL SPRAY 16GM BOTTLE. NS SCH (09:30)
[2021-11-27] MEDS: MECLIZINE HCL 12.5 MG TABLET. PO SCH ×3 (09:30→20:45)
[2021-11-27] MEDS: DEXAMETHASONE 4 MG TABLET PO SCH (09:30)
[2021-11-27] MEDS: LACTOBACILLUS RHAMNOSUS GG 1 CAPSULE. PO SCH ×2 (09:30→20:44)
[2021-11-27] MEDS: hydroCHLOROthiazide 12.5 MG CAPSULE PO SCH (09:30)
[2021-11-27] MEDS: CHOLECALCIFEROL (VITAMIN D3) 1,000 UNIT TABLET PO SCH (09:30)
[2021-11-27] MEDS: ASPIRIN CHEWABLE 81 MG TABLET. PO SCH (09:30)
[2021-11-27] MEDS: metFORMIN 500 MG TABLET PO SCH ×2 (09:30→16:53)
[2021-11-27] MEDS: LOSARTAN POTASSIUM 25 MG TABLET. PO SCH (09:31)
[2021-11-27] MEDS: INSULIN LISPRO 300 UNITS/3 ML VIAL. SQ SCH ×3 (09:32→16:53)
[2021-11-27] MEDS: INSULIN GLARGINE SYRINGE. SQ SCH ×2 (09:33→20:48)
--- NOTE | 2021-11-27 10:27 | NUR ---
SW following. Discussed with RN, pt from home with family and [facility], uses oxygen at home, ada diet. COVID-19 positive. On day 2 of Remdesivir. SW will continue to follow.
[2021-11-27 11:00] VITALS: BP 160/70
[2021-11-27 15:00] VITALS: BP 138/56
[2021-11-27 19:00] VITALS: BP 140/55
[2021-11-27] MEDS: DOXYCYCLINE HYCLATE 100 MG TABLET PO SCH (20:44)
[2021-11-27] MEDS: ATORVASTATIN CALCIUM 40 MG TABLET. PO SCH (20:44)
[2021-11-27] MEDS: CETIRIZINE HCL 10 MG TABLET. PO SCH (20:44)
[2021-11-27] MEDS: PATCH REMOVAL. MC SCH (21:00)
[2021-11-27 23:00] VITALS: BP 167/69
[2021-11-28 07:00] VITALS: BP 143/71
[2021-11-28] MEDS: INSULIN LISPRO 300 UNITS/3 ML VIAL. SQ SCH ×3 (08:00→17:16)
[2021-11-28] MEDS: DOXYCYCLINE HYCLATE 100 MG TABLET PO SCH ×2 (08:40→21:00)
[2021-11-28] MEDS: DEXAMETHASONE 4 MG TABLET PO SCH (08:40)
[2021-11-28] MEDS: LOSARTAN POTASSIUM 25 MG TABLET. PO SCH (08:40)
[2021-11-28] MEDS: metFORMIN 500 MG TABLET PO SCH ×2 (08:40→17:10)
[2021-11-28] MEDS: hydroCHLOROthiazide 12.5 MG CAPSULE PO SCH (08:40)
[2021-11-28] MEDS: LACTOBACILLUS RHAMNOSUS GG 1 CAPSULE. PO SCH ×2 (08:40→21:48)
[2021-11-28] MEDS: LIDOCAINE (700MG/PATCH) PATCH. TP SCH (08:41)
[2021-11-28] MEDS: ENOXAPARIN 40 MG/0.4 ML SYRINGE. SQ SCH (08:41)
[2021-11-28] MEDS: ASPIRIN CHEWABLE 81 MG TABLET. PO SCH (08:42)
[2021-11-28] MEDS: CHOLECALCIFEROL (VITAMIN D3) 1,000 UNIT TABLET PO SCH (08:42)
[2021-11-28] MEDS: MECLIZINE HCL 12.5 MG TABLET. PO SCH ×3 (08:42→21:48)
[2021-11-28] MEDS: FLUTICASONE 50MCG/NASAL SPRAY 16GM BOTTLE. NS SCH (08:43)
[2021-11-28] MEDS: INSULIN GLARGINE SYRINGE. SQ SCH ×2 (08:46→21:52)
[2021-11-28] MEDS: TRIAMCINOLONE ACETONIDE 0.1% TOPICAL OINTMENT 15GM TUBE. TP SCH ×2 (08:46→21:00)
[2021-11-28] MEDS: REMDESIVIR 100mg in NORMAL SALINE 250ML X 4 DAYS IV SCH (08:47)
[2021-11-28 11:00] VITALS: BP 144/73
--- NOTE | 2021-11-28 11:01 | PDOC ---
PROGRESS NOTES Date of Service: DATE: 11/28/21 TIME: 10:58 Subjective Subjective anxious Objective Objective Vital Signs Date Time Temp Pulse Resp B/P (MAP) Pulse Ox O2 Delivery O2 Flow Rate FiO2 11/28/21 08:42 53 143/71 11/28/21 07:00 98.5 17 94 Nasal Cannula 2.0 98.5 Intake and Output 11/28/21 07:00 Intake Total 360 ml Balance 360 ml Intake Oral 360 ml # Voids 5 # Bowel Movements 2 Physical Exam Abdomen: Soft Heart: Normal S1, Normal S2 Extremities: No clubbing General: Alert HEENT: Atraumatic Lungs: Clear to auscultation MUSCULOSKELETAL: No swelling, Osteoarthritic changes both hands Neck: No JVD Neuro: Normal speech Psych/Mental Status: Mood NL Skin: No breakdown Diagnosis Problem List Problems Medical Problems: (1) Chest pain Status: Acute (2) Elevated troponin Status: Acute Assessment Assessment Problems Medical Problems: (1) Chest pain Status: Acute (2) Elevated troponin Status: Acute FINAL IMPRESSION: 1. COVID pneumonia. 2. Demand ischemia. 3. Known history of coronary artery disease, but last cardiac catheterization 2 years ago was negative for blockages. 4. Insulin-dependent diabetes. 5. Anxiety and fibromyalgia. PLAN:d/c home tomorrow 6 mts walk tomorrow labs ok ECHO done report pending CT chest , suggestive of viral pneumonia remdesivir+dexamethasone.day #4 d/c iv zyvox+zosyn. dvt prevention with lovenox. Plan Plan of Care Problems Medical Problems: (1) Chest pain Status: Acute (2) Elevated troponin Status: Acute Comment Review of Relevant I have reviewed the following items dixon (where applicable) has been applied. Labs Laboratory Tests Test 11/27/21 11:57 11/27/21 16:39 11/27/21 20:27 11/28/21 07:49 Glucose (Fingerstick) 241 mg/dL (70-99) 247 mg/dL (70-99) 268 mg/dL (70-99) 199 mg/dL (70-99) Microbiology 11/25/21 Blood Culture - Preliminary, Resulted NO GROWTH AFTER 3 DAYS Medications Current Medications Doxycycline Hyclate (Vibra-Tab) 100 mg BID PO Last administered on 11/28/21at 08:40; Start 11/27/21 at 21:00 Vitals/I & O Vital Sign - Last 24 Hours 11/27/21 11/27/21 11/27/21 11/27/21 11:00 15:00 19:00 20:00 Temp 97.8 97.6 98.4 97.8 97.6 98.4 Pulse 74 74 80 Resp 17 17 16 B/P (MAP) 160/70 (100) 138/56 (83) 140/55 (83) Pulse Ox 93 95 91 O2 Delivery Nasal Cannula Nasal Cannula Nasal Cannula Nasal Cannula O2 Flow Rate 2.0 2.0 2.0 2.0 11/27/21 11/28/21 11/28/21 11/28/21 23:00 03:00 07:00 08:40 Temp 98.5 98.5 98.5 98.5 Pulse 69 73 53 53 Resp 20 18 17 B/P (MAP) 167/69 (101) 143/71 (95) 143/71 Pulse Ox 93 95 94 O2 Delivery Nasal Cannula Nasal Cannula Nasal Cannula O2 Flow Rate 2.0 2.0 2.0 11/28/21 08:42 Pulse 53 B/P (MAP) 143/71 Intake and Output 11/27/21 11/27/21 11/28/21 15:00 23:00 07:00 Intake Total 360 ml Balance 360 ml Justifications for Admission Other Justification ZOILA DERAS MD Nov 28, 2021 11:01
[2021-11-28 15:00] VITALS: BP 136/55
--- NOTE | 2021-11-28 15:21 | PDOC ---
CARDIOLOGY PROGRESS NOTE SUBJECTIVE: No new issues overnight. Wants to go home. No chest pain or dyspnea. OBJECTIVE: Vital Signs/I&O: Vital Signs Date Time Temp Pulse Resp B/P (MAP) Pulse Ox O2 Delivery O2 Flow Rate FiO2 11/28/21 11:00 97.6 74 18 144/73 (96) 96 Nasal Cannula 2.0 97.6 I & O 11/27/21 11/27/21 11/28/21 15:00 23:00 07:00 Intake Total 360 ml Balance 360 ml Objective: Physical Exam HEENT: Neck Supple W Full Motion Chest: Symmetric LUNGS: Other (dimnished bases) Heart: RRR (SR) Abdomen: Soft N/T, Other (obese) Extremities: No Edema, No Calf Tenderness Neurology: alert, oriented, follow commands Assessment Assessment 1. Atypical chest pain: noncardiac, MSK reproducible 2. Nontraumatic mechanical fall: not r/t to syncope nor arrhythmias 3. Covid-19 Pneumonia: + on 11/16/2021. CT chest reviewed no rib fractures 4. Mild troponin elevation in the setting of covid-19. EF wnl. 5. CKD; possibly stage 3 6. HTN: controlled 7. DM2: per PCP 8. Morbid obesity Recommendations TTE wnl. f/u in the office and will consider outpt stress testing. Thanks. CURRENT MEDICATIONS: Current Medications Medications (Trade) Dose Ordered Sig/Rell Route PRN Reason Start Time Stop Time Status Last Admin Dose Admin Doxycycline Hyclate (Vibra-Tab) 100 mg BID PO 11/27/21 21:00 11/28/21 08:40 DIAGNOSTIC TESTING: Labs: Laboratory Tests Test 11/27/21 16:39 11/27/21 20:27 11/28/21 07:49 11/28/21 11:42 Glucose (Fingerstick) 247 mg/dL (70-99) H 268 mg/dL (70-99) H 199 mg/dL (70-99) H 311 mg/dL (70-99) H Justicifation of Admission Dx: Justifications for Admission: Justification of Admission Dx: No KIERAN GRISSOM MD Nov 28, 2021 15:21
[2021-11-28 19:57] VITALS: BP 125/38
[2021-11-28] MEDS: PATCH REMOVAL. MC SCH (21:00)
[2021-11-28] MEDS: ATORVASTATIN CALCIUM 40 MG TABLET. PO SCH (21:48)
[2021-11-28] MEDS: CETIRIZINE HCL 10 MG TABLET. PO SCH (21:48)
[2021-11-28 22:59] VITALS: BP 169/73
[2021-11-29 03:05] VITALS: BP 150/53
[2021-11-29 07:00] VITALS: BP 158/71
[2021-11-29] MEDS: INSULIN LISPRO 300 UNITS/3 ML VIAL. SQ SCH ×2 (08:00→12:40)
[2021-11-29] MEDS: hydroCHLOROthiazide 12.5 MG CAPSULE PO SCH (09:25)
[2021-11-29] MEDS: ASPIRIN CHEWABLE 81 MG TABLET. PO SCH (09:25)
[2021-11-29] MEDS: metFORMIN 500 MG TABLET PO SCH (09:25)
[2021-11-29] MEDS: LACTOBACILLUS RHAMNOSUS GG 1 CAPSULE. PO SCH (09:25)
[2021-11-29] MEDS: DOXYCYCLINE HYCLATE 100 MG TABLET PO SCH (09:25)
[2021-11-29] MEDS: CHOLECALCIFEROL (VITAMIN D3) 1,000 UNIT TABLET PO SCH (09:25)
[2021-11-29] MEDS: DEXAMETHASONE 4 MG TABLET PO SCH (09:25)
[2021-11-29] MEDS: MECLIZINE HCL 12.5 MG TABLET. PO SCH ×2 (09:25→14:22)
[2021-11-29] MEDS: FLUTICASONE 50MCG/NASAL SPRAY 16GM BOTTLE. NS SCH (09:26)
[2021-11-29] MEDS: REMDESIVIR 100mg in NORMAL SALINE 250ML X 4 DAYS IV SCH (09:26)
--- NOTE | 2021-11-29 09:30 | PDOC ---
IM PROGRESS NOTES- Subjective Subjective Denies any dyspnea or chest pains. Objective Vitals/I&O Vital Signs Date Time Temp Pulse Resp B/P (MAP) Pulse Ox O2 Delivery O2 Flow Rate FiO2 11/29/21 07:00 98.6 67 16 158/71 (100) 94 Nasal Cannula 2.0 98.6 I & O 11/28/21 11/28/21 11/29/21 15:00 23:00 07:00 Intake Total 0 ml Balance 0 ml Physical Exam Physical Exam General Appearance - alert and in no distress On oxygen by nasal cannula. Chest - decreased breath sounds at bases Heart - S1 and S2 normal Abdomen - soft, non tender Neurological - alert and oriented Musculoskeletal - generalized weakness Extremities - no edema Labs Laboratory Tests Test 11/28/21 11:42 11/28/21 16:31 11/28/21 20:55 11/29/21 07:59 Glucose (Fingerstick) 311 mg/dL (70-99) H 330 mg/dL (70-99) H 219 mg/dL (70-99) H 129 mg/dL (70-99) H Assessment Assessment Problems Medical Problems: (1) Chest pain Status: Acute (2) Elevated troponin Status: Acute FINAL IMPRESSION: 1. COVID pneumonia. 2. Demand ischemia. 3. Known history of coronary artery disease, but last cardiac catheterization 2 years ago was negative for blockages. 4. Insulin-dependent diabetes. 5. Anxiety and fibromyalgia. PLAN: Clinically improving. Discharge home today. Has been on oxygen by nasal cannula 2 L/min. labs ok ECHO done report pending CT chest , suggestive of viral pneumonia remdesivir+dexamethasone. Dexamethasone started on . Continue for 7 more days. Prescription written. d/c iv zyvox+zosyn. dvt prevention with lovenox. Follow-up with in 1 week. Discharge management 35 minutes. Diabetes is not controlled. Increase Levemir to 30 units subcu twice daily. Oxygen by nasal cannula to be decided after 6-minute walk today. Discharge home with home health services. Plan Plan For more details regarding further plans, please refer to the orders. Justifications for Admission Other Justification GUILLERMO BONILLA MD Nov 29, 2021 09:30
[2021-11-29] MEDS: LIDOCAINE (700MG/PATCH) PATCH. TP SCH (09:31)
[2021-11-29] MEDS: LOSARTAN POTASSIUM 25 MG TABLET. PO SCH (09:31)
[2021-11-29] MEDS: INSULIN GLARGINE SYRINGE. SQ SCH (09:31)
[2021-11-29] MEDS: TRIAMCINOLONE ACETONIDE 0.1% TOPICAL OINTMENT 15GM TUBE. TP SCH (09:31)
[2021-11-29] MEDS: ENOXAPARIN 40 MG/0.4 ML SYRINGE. SQ SCH (09:33)
[2021-11-29] MEDS ORDERED: INSU100V13 SQ (10:17)
[2021-11-29] MEDS ORDERED: DEXA4TAB63 PO ×2 (10:17)
--- NOTE | 2021-11-29 10:19 | SNU/HH DC ---
DISCHARGE WITH HOME HEALTH DISCHARGE INFORMATION: Final Diagnosis: Problems Medical Problems: (1) Chest pain Status: Acute (2) Elevated troponin Status: Acute Condition on Discharge: Stable HOME HEALTH: Face to Face: I certify this patient is under my care and that I, or a nurse practitioner or [employer]ron[employer] teaching assistant working with me, had a face to face encounter that meets the physician face to face encounter requirements with this patient on November 29, 2021. Medical Complications: Other (COVID-19 pneumonia) RN For Eval/Treatment: Yes Pt Meets Homebound Status: Fatigue w/ amb. POST DISCHARGE ORDERS: Activity Instructions for Disc: Activity as tolerated Weight Bearing Status after Di: No restrictions DIET AFTER DISCHARGE: Cardiac (ADA) Wound/Incision Care: No wound care needed CHECKS AFTER DISCHARGE: Checks after discharge: Check blood press - daily, Check blood sugar, ac/hs, Check your Temp as needed FOLLOW-UP: PCP to follow Home Health: Yes Follow up with: in 1 week. TREATMENT/EQUIPMENT ORDERS: Adaptive Equipment Issued: None Discharge Respiratory Equipmen: Oxygen (Oxygen by nasal cannula per results of 6-minute walk.) CERTIFICATION STATEMENT: Certification Statement: Certification Statement: Based on the above finding, I certify that this patient is confined to the home and needs intermittent correction care, physical therapy and/or speech therapy, or continues to need occupational therapy.~ This patient is under my care, and I have initiated the establishment of the plan of care.~ This patient will be followed by myself or a community physician who will periodically review the plan of care. Home Meds Active Scripts Dexamethasone (Decadron) 4 Mg Tablet, 4 MG PO DAILYWBKFT for covid-19 for 7 Days, #7 TAB Prov:GUILLERMO BONILLA MD 11/29/21 Dexamethasone (Decadron) 4 Mg Tablet, 4 MG PO DAILYWBKFT for lungs for 7 Days, #7 TAB Prov:GUILLERMO BONILLA MD 11/29/21 Insulin Detemir (LEVEMIR) 100 Unit/1 Ml Vial, 30 UNIT SQ BID for DM, #94 VIAL Prov:GUILLERMO BONILLA MD 11/29/21 Lidocaine (Lidocaine PATCH ) 1 Each Adh..patch, 1 EACH TP DAILY for FOR LOCAL PAIN, #10 PATCH REMOVE AFTER 12 HOURS Prov:JO-ANN NOLASCO APRN 03/17/21 Fluticasone Propionate (Flonase Allergy Relief) 9.9 Ml [place].susp, 2 SPRAYS NS DAILY, #1 BOTTLE Prov:JOHNY GASCA 07/19/16 Reported Medications Dulaglutide (Trulicity) 1.5 Mg/0.5 Ml Pen.injctr, 1.5 MG SQ WEEKLY for DM, EACH 11/17/21 Triamcinolone Acetonide (TRIAMCINOLONE ACETONIDE 0.1% OINT) 15 Gm Oint...g., 1 BRITTNI TP BID for WOUND CARE, #1 EACH MIX WITH EUCERIN DIRECTED BY PHYSICIAN 11/17/21 Levocetirizine Dihydrochloride (LEVOCETIRIZINE DIHYDROCHLORIDE) 5 Mg Tablet, 1 TAB PO QHS for allergies, #90 TAB 3 Refills 11/17/21 Methocarbamol (METHOCARBAMOL) 500 Mg Tablet, 500 MG PO QID for Pain, TAB 11/17/21 Olmesartan Medoxomil (Olmesartan Medoxomil) 5 Mg Tablet, 1 TAB PO DAILY for HTN 11/17/21 Gabapentin (Gabapentin) 100 Mg Capsule, 1 CAP PO TID for neuropathy 11/17/21 Hydrochlorothiazide (HYDROCHLOROTHIAZIDE TABLET) 12.5 Mg Tablet, 1 TAB PO DAILY for HTN 11/17/21 Atorvastatin Calcium (ATORVASTATIN CALCIUM) 40 Mg Tablet, 1 TAB PO DAILY for HLD 11/17/21 Hydroxyzine Hcl (HYDROXYZINE HCL) 25 Mg Tablet, 25 MG PO PRN Q6HRS PRN for ANXIETY / AGITATION, TAB 12/19/18 Amlodipine Besylate (AMLODIPINE BESYLATE) 5 Mg Tablet, 5 MG PO DAILY for hyperte nsion, TAB 12/19/18 Aspirin (ASPIRIN) 81 Mg Tab.chew, 81 MG PO DAILY for , TAB.CHEW 12/19/18 Insulin Aspart (NOVOLOG) 100 Unit/1 Ml Vial, 25 UNIT SQ TIDWMEALS for , VIAL 02/25/15 Alprazolam (ALPRAZOLAM) 0.5 Mg Tablet, 1 TAB PO BID PRN for ANXIETY / AGITATION, #60 TAB 02/25/15 Cholecalciferol (Vitamin D3) (VITAMIN D3) 1,000 Unit Tablet, 1 TAB PO DAILY, #90 TAB 3 Refills 02/25/15 Meclizine Hcl (MECLIZINE HCL) 25 Mg Tablet, 1 TAB PO TID, #90 TAB 02/25/15 Metformin Hcl (METFORMIN HCL) 1,000 Mg Tablet, 1000 MG PO BID for ANTI-DIABETIC, TAB 0 Refills 02/25/15 Discontinued Scripts Doxycycline Hyclate (DOXYCYCLINE HYCLATE) 100 Mg Tablet, 100 MG PO BID for lungs for 14 Days, #28 TAB Prov:ZOILA DERAS MD 11/18/21 GUILLERMO BONILLA MD Nov 29, 2021 10:19
[2021-11-29 11:00] VITALS: BP 165/74
--- NOTE | 2021-11-29 15:00 | NUR ---
Discharge Note: Patient was discharge home with home health. Patients IV was discontinued without any complications per KIRK. Patient received discharge summary/instructions, follow-ups, and educational material. Patients new prescription were sent to patients preferred pharmacy. Patient did not require any home oxygen per 6 minute walk. Patient was taken down to the ER entrance via wheelchair with all personal belongings, accompanied by KIRK Montes, where patients ride was waiting for her to take her home.
== END 2021-11-29 15:00 | disposition home health service (06) | DRG 177 ==
LOC: ER 03:20 → 5 NORTH 04:30
PROVIDERS: ADMIT Internal Medicine; ATTEND Internal Medicine
PROC: XW033E5 Introduction of Remdesivir Anti-infective into Peripheral Vein, Percutaneous Approach, New Technology Group 5 (ICD-10-PCS; principal; 2021-11-26)
DX: U07.1 COVID-19 (principal); J12.82 Pneumonia due to coronavirus disease 2019; I24.8 Other forms of acute ischemic heart disease; E11.41 Type 2 diabetes mellitus with diabetic mononeuropathy; E66.01 Morbid (severe) obesity due to excess calories; E78.00 Pure hypercholesterolemia, unspecified; E78.5 Hyperlipidemia, unspecified; F12.90 Cannabis use, unspecified, uncomplicated; F41.0 Panic disorder [episodic paroxysmal anxiety]; I11.9 Hypertensive heart disease without heart failure; I25.10 Atherosclerotic heart disease of native coronary artery without angina pectoris; M79.7 Fibromyalgia; R09.02 Hypoxemia; W18.30XA Fall on same level, unspecified, initial encounter; Z79.4 Long term (current) use of insulin; Z87.891 Personal history of nicotine dependence; M10.9 Gout, unspecified; Z68.38 Body mass index [BMI] 38.0-38.9, adult; Z88.8 Allergy status to other drugs, medicaments and biological substances; R07.89 Other chest pain
CPT/HCPCS: 36415; 71045; 71250; 80048; 80053; 82962; 83605; 83690; 83880; 84484; 85007; 85025; 85379; 86140; 87040; 93005; 93306; 94618; 96374; J1100; J1650; J1815; J2020; J2543; J7050; 99285-25; C8929; G0378; J7030; J8597

== ENCOUNTER 2022-01-10 20:30 | Inpatient (IN) | payer OTHER, MEDICAID ==
[~2022-01-10] VITALS: Ht 162.6 cm; Wt 102.1 kg
[~2022-01-10 20:30] MED LIST changes: +AMOX1TAB11 PO
--- NOTE | 2022-01-10 20:54 | ED.ADGEN ---
Past Medical History Past Medical History: Anxiety, Cancer, Diabetes-Type II, High Cholesterol, Hypertension, Other Additional Past Medical Histor: MACULAR DEGENERATION, GOUT, PANIC ATTACKS, COVID NOV 25, 2021 Past Surgical History: Cholecystectomy, Tubal ligation, Other Additional Past Surgical Histo: LT BREAST REDUCTION, EYE PROCEDURES,L)masectomy.R)finger fx repair Smoking Status: Former Smoker Alcohol Use: None Drug Use: None General Adult EDM: Chief Complaint: MECHANICAL FALL HPI: HPI: Patient is a 76 year old female coming to our EMS after a fall. Patient fell while standing in the restroom and struck her right side of her head on a cabin et. Patient had a loss conscious. Able to ambulate to a chair with her walker with family assistance. No loss of consciousness. Patient is denying any pain at this time. Patient's son told EMS that she had been shaky and altered. They noted that her blood glucose was reading "high" which means over 600, was given 250 cc NS in route. He states that family states she has not been compliant wi th her insulin. Patient complains of little dysuria but has no other complaints other than feeling chilled. Review of Systems: Review of Systems: All other systems within normal limits except for as noted in the HPI Current Medications: Current Medications Medications (Trade) Dose Ordered Sig/Rell Start Time Stop Time Status Last Admin Dose Admin Info (CONTRAST GIVEN -- Rx MONITORING) 1 each PRN DAILY PRN 01/10/22 23:00 01/12/22 22:59 Sodium Chloride 1,000 ml @ 1,000 mls/hr 1X ONCE 01/10/22 22:00 01/10/22 22:59 DC 01/10/22 21:47 1,000 MLS/HR Allergies: Allergies: Allergies Coded Allergies Type Severity Reaction Last Updated Verified codeine Adverse Reaction Intermediate "HYPERVENTILATE" 11/25/21 Yes ibuprofen Adverse Reaction Intermediate "SICK" 11/25/21 Yes Physical Exam: PE: Constitutional: Well developed, well nourished, no acute distress, non-toxic appearance. [] HENT: Normocephalic, atraumatic, bilateral external ears normal, nose normal. [] Eyes: PERRLA, conjunctiva normal, no discharge. [] Neck: No rigidity, supple, no stridor., No C-spine tenderness, step-off or deformity [] Cardiovascular: Regular rate and rhythm, brisk cap refill [] Lungs & Thorax: Non labored symmetric respirations, no tachypnea or respiratory distress. No rib cage tenderness to palpate [] Abdomen: Soft, nondistended, nontender palpation. Skin: Warm, dry, no erythema, no rash. [] Back: Unremarkable Extremities: No deformities, range of motion grossly intact, no lower extremity edema. No tense outpatient in upper or lower extremity [] Neurologic: Alert and oriented X 3, no focal deficits noted. [] Psychologic: Affect normal, judgement normal, mood normal. [] Current Patient Data: Labs: Laboratory Tests Test 01/10/22 20:39 01/10/22 21:40 01/10/22 22:56 White Blood Count 7.5 x10^3/uL (4.0-11.0) Red Blood Count 4.78 x10^6/uL (3.50-5.40) Hemoglobin 12.4 g/dL (12.0-15.5) Hematocrit 40.8 % (36.0-47.0) Mean Corpuscular Volume 85 fL (79-100) Mean Corpuscular Hemoglobin 26 pg (25-35) Mean Corpuscular Hemoglobin Concent 30 g/dL (31-37) L Red Cell Distribution Width 16.4 % (11.5-14.5) H Platelet Count 203 x10^3/uL (140-400) Neutrophils (%) (Auto) 75 % (31-73) H Lymphocytes (%) (Auto) 16 % (24-48) L Monocytes (%) (Auto) 8 % (0-9) Eosinophils (%) (Auto) 0 % (0-3) Basophils (%) (Auto) 1 % (0-3) Neutrophils # (Auto) 5.7 x10^3/uL (1.8-7.7) Lymphocytes # (Auto) 1.2 x10^3/uL (1.0-4.8) Monocytes # (Auto) 0.6 x10^3/uL (0.0-1.1) Eosinophils # (Auto) 0.0 x10^3/uL (0.0-0.7) Basophils # (Auto) 0.0 x10^3/uL (0.0-0.2) Sodium Level 134 mmol/L (136-145) L Potassium Level 4.6 mmol/L (3.5-5.1) Chloride Level 96 mmol/L (98-107) L Carbon Dioxide Level 29 mmol/L (21-32) Anion Gap 9 (6-14) Blood Urea Nitrogen 12 mg/dL (7-20) Creatinine 1.5 mg/dL (0.6-1.0) H Estimated GFR (Cockcroft-Gault) 41.0 BUN/Creatinine Ratio 8 (6-20) Glucose Level 700 mg/dL (70-99) *H Lactic Acid Level 2.5 mmol/L (0.4-2.0) H Calcium Level 9.0 mg/dL (8.5-10.1) Phosphorus Level 3.5 mg/dL (2.6-4.7) Magnesium Level 2.0 mg/dL (1.8-2.4) Total Bilirubin 0.5 mg/dL (0.2-1.0) Aspartate Amino Transferase (AST) 10 U/L (15-37) L Alanine Aminotransferase (ALT) 28 U/L (14-59) Alkaline Phosphatase 103 U/L (46-116) Troponin I High Sensitivity 251 ng/L (4-50) H UI-Vbc-J-Type Natriuretic Peptide 952 pg/mL (0-449) H Total Protein 7.4 g/dL (6.4-8.2) Albumin 3.0 g/dL (3.4-5.0) L Albumin/Globulin Ratio 0.7 (1.0-1.7) L Acetone Level Neg (NEG) Urine Collection Type U cath Urine Color Yellow Urine Clarity Clear Urine pH 7.0 (<5.0-8.0) Urine Specific [place] 1.010 (1.000-1.030) Urine Protein 30 mg/dL (NEG-TRACE) Urine Glucose (UA) >=1000 mg/dL (NEG) Urine Ketones (Stick) 15 mg/dL (NEG) Urine Blood Trace (NEG) Urine Nitrite Negative (NEG) Urine Bilirubin Negative (NEG) Urine Urobilinogen Dipstick 0.2 mg/dL (0.2 mg/dL) Urine Leukocyte Esterase Negative (NEG) Urine RBC Occ /HPF (0-2) Urine WBC 1-4 /HPF (0-4) Urine Squamous Epithelial Cells Mod /LPF Urine Bacteria 0 /HPF (0-FEW) Influenza Type A Antigen Negative (NEGATIVE) Influenza Type B Antigen Negative (NEGATIVE) SARS-CoV-2 Antigen (Rapid) Negative (NEGATIVE) Laboratory Tests 01/10/22 20:39 Laboratory Tests 01/10/22 20:39 Vital Signs: Vital Signs Date Time Temp Pulse Resp B/P (MAP) Pulse Ox O2 Delivery O2 Flow Rate FiO2 01/10/22 23:11 102 23 238/114 (155) 92 Room Air 01/10/22 20:30 101.0 101.0 EKG: EKG: [] Since tachycardia, heart rate 100 bpm, normal axis, T wave inversions in lateral leads, unchanged from 11-25-21. No STEMI Heart Score: C/O Chest Pain: No HEART Score for Chest Pain: HEART Score for Chest Pain Response (Comments) Value History Slighlty/Non-Suspicious 0 ECG Nonspecific Repolarizatio 1 Age > 65 2 Risk Factors >3 Risk Factors or Hx CAD 2 Troponin >3 x Normal Limit 2 Total 7 Risk Factors: Risk Factors: DM, Current or recent (<one month) smoker, HTN, HLP, family history of CAD, obesity. Risk Scores: Score 0 - 3: 2.5% MACE over next 6 weeks - Discharge Home Score 4 - 6: 20.3% MACE over next 6 weeks - Admit for Clinical Observation Score 7 - 10: 72.7% MACE over next 6 weeks - Early Invasive Strategies Radiology/Procedures: Radiology/Procedures: [facility] [address] [place] [address] IMAGING REPORT Signed PATIENT: VIRGILIO HICKEY ACCOUNT: [id number] : 1945 LOCATION: ER AGE: 76 SEX: F EXAM STATUS: PRE ER ORD. PHYSICIAN: FLAVIA REYNOSO MD REASON: fall PROCEDURE: CHEST AP ONLY EXAMINATION: XR CHEST 1V. HISTORY: 76 years Female Reason: fall / COMPARISON: December 10, 2021. Findings: The lungs are clear. The heart size is mildly enlarged. This can be exaggerated by the portable technique. There is no effusion or pneumothorax. The mediastinum and margy appear unremarkable. Impression: Prominent cardiac size. No focal infiltrate. Electronically signed by: Darryl Flores MD (01/10/2022 9:59 PM) [id number] DICTATED and SIGNED BY: DARRYL FLORES MD DATE: 01/10/22 [id number] [][facility] [address] [place] [address] IMAGING REPORT Signed PATIENT: VIRGILIO HICKEY ACCOUNT: [id number] : 1945 LOCATION: ER AGE: 76 SEX: F EXAM STATUS: PRE ER ORD. PHYSICIAN: FLAVIA REYNOSO MD REASON: fall, hit right side of head, AMS, (PT MOVED DURING HEAD SCAN SENT BEST) PROCEDURE: CT HEAD AND CERVICAL SPINE WO EXAMINATION: CT HEAD AND C-SPINE WO. TECHNIQUE: Noncontrast axial images of the brain and cervical spine with coronal and sagittal reconstructions were obtained. One or more of the following radiation dose reduction techniques was used: automated exposure control, adjustment of mA and/or KV according to patient size, and/or utilization of iterative reconstruction technique. HISTORY: 76 years Female Reason: fall, hit right side of head, AMS, (PT MOVED DURING HEAD SCAN SENT BEST) FINDINGS: CT HEAD: There is some motion artifact which the could obscure a subtle abnormality. There is no intracranial hemorrhage, edema or mass effect. The brain parenchyma demonstrates periventricular and deep white matter hypodensities compatible with chronic microvascular ischemic changes. No hydrocephalus. The visualized portions of the orbits and paranasal sinuses appear unremarkable. CT cervical spine: The alignment of the posterior spinal line satisfactory. The vertebral body heights are preserved. There is straightening of the cervical spine curvature which could relate to muscle spasm. The alignment at the facet joints is satisfactory. There is a multilevel disc height the narrowing most prominent at the C5/6 and the C4/5. Small posterior osteophytes at these levels are seen. More prominent anterior osteophytes are noted. The paraspinal soft tissues appear unremarkable. IMPRESSION: CT HEAD: No acute process. CT cervical spine: Degenerative changes. No fracture seen. Electronically signed by: Darryl Flores MD (01/10/2022 9:46 PM) [id number] DICTATED and SIGNED BY: DARRYL FLORES MD DATE: 01/10/22 [id number] [facility] [address] [place] [address] IMAGING REPORT Signed PATIENT: VIRGILIO HICKEY ACCOUNT: [id number] : 1945 LOCATION: ER AGE: 76 SEX: F EXAM STATUS: REG ER ORD. PHYSICIAN: FLAVIA REYNOSO MD REASON: sepsis, unknown source, OMNI 300 60 ML IV PROCEDURE: CT CHEST ABD PELVIS W/CONTRAST CT chest, abdomen and pelvis with contrast PQRS statement: CT scans at this facility use dose reduction including either automated exposure control, iterative reconstructions, and /or weight based radiation dosing via mA and kV modification when appropriate to reduce radiation dose to as low as reasonably achievable. Contrast: 60 mL Omnipaque 300 intravenous contrast. COMPARISON: CT abdomen and pelvis December 11, 2021, CT chest November 25, 2021 and prior studies. HISTORY: Sepsis unknown source. Chest findings: Calcified plaque thoracic aorta and coronary arteries. Moderate cardiomegaly. Coronary vessels and esophagus are unremarkable. No adenopathy in the chest. Left mastectomy. Trachea and bronchi are unremarkable. Thin linear discoid atelectasis of the lung bases. No pulmonary opacities or pleural effusions. Bones are unremarkable. Abdomen findings: Cholecystectomy. Mild bilateral renal pelviectasis. Kidneys, adrenal glands, liver, pancreas and spleen are normal. Calcified plaque of the abdominal aorta and iliac arteries. Small sliding hiatal hernia of the gastroesophageal junction. Appendix is normal. No obstruction or inflammation of the GI tract. No abdominal fluid or adenopathy. Lower lumbar disc disease and facet arthrosis. 2 cm shallow fatty umbilical abdominal wall hernia there is a surgical clip present. Pelvis findings: Prominent central uterine heterogeneous hypodensity thickness of 1 cm. Ovaries, bladder, rectum and bones are unremarkable. No focal fluid or adenopathy IMPRESSION: 1. No acute process in the chest, abdomen or pelvis. The appendix is normal. 2. Prominent central uterine heterogeneous hypodensity with a thickness of 1 cm. This is abnormal in a postmenopausal female and could be indicative of endometrial canal fluid or endometrial hyperplasia/carcinoma. This could be further assessed with outpatient pelvic sonography. Electronically signed by: Reji Clifford MD (01/10/2022 11:05 PM) [facility] [place] and SIGNED BY: REJI CLIFFORD MD DATE: 01/10/22 [id number] Course & Med Decision Making: Course & Med Decision Making Pertinent Labs and Imaging studies reviewed. (See chart for details) [] Patient on vancomycin due to recent hospitalization and fever of unknown source. Started on insulin drip and admitted to primary care for uncontrolled type 2 diabetes Dragon Disclaimer: Darren Disclaimer: This electronic medical record was generated, in whole or in part, using a voice recognition dictation system. Departure Departure Impression: Primary Impression: Fever, unknown origin Additional Impression: Hyperglycemia due to type 1 diabetes mellitus Disposition: ADMITTED INPATIENT Admitting Physician: Jr Deras Condition: STABLE Referrals: JR DERAS MD (PCP) Problem Qualifiers FLAVIA REYNOSO MD Jan 10, 2022 20:54
[2022-01-10] MEDS ORDERED: IV NORMAL SALINE 500ML BAG 500 ML IV ONE (21:00)
[2022-01-10 21:18] LABS: BASO % 1 % (0-3); EOS % 0 % (0-3); HEMATOCRIT 40.8 % (36.0-47.0); HEMOGLOBIN 12.4 g/dL (12.0-15.5); LYMPH # 1.2 x10^3/uL (1.0-4.8); LYMPH % 16 % (24-48); MEAN CORPUSCULAR HEMOGLOBIN 26 pg (25-35); MEAN CORPUSCULAR HGB CONC 30 g/dL (31-37); MEAN CORPUSCULAR VOLUME 85 fL (79-100); MONO # 0.6 x10^3/uL (0.0-1.1); MONO % 8 % (0-9); NEUT # 5.7 x10^3/uL (1.8-7.7); NEUT % 75 % (31-73); PLATELET COUNT 203 x10^3/uL (140-400); RED BLOOD COUNT 4.78 x10^6/uL (3.50-5.40); RED CELL DISTRIBUTION WIDTH 16.4 % (11.5-14.5); WHITE BLOOD COUNT 7.5 x10^3/uL (4.0-11.0)
[2022-01-10 21:37] LABS: ALBUMIN/GLOBULIN RATIO 0.7 (1.0-1.7); CREATININE 1.5 mg/dL (0.6-1.0); PHOSPHORUS 3.5 mg/dL (2.6-4.7); POTASSIUM 4.6 mmol/L (3.5-5.1); TOTAL BILIRUBIN 0.5 mg/dL (0.2-1.0); TOTAL PROTEIN 7.4 g/dL (6.4-8.2)
--- NOTE | 2022-01-10 21:48 | RAD ---
EXAMINATION: CT HEAD AND C-SPINE WO. TECHNIQUE: Noncontrast axial images of the brain and cervical spine with coronal and sagittal recon structions were obtained. One or more of the following radiation dose reduction techniques was used: automated exposure control , adjustment of mA and/or KV according to patient size, and/or utilization of iterative reconstructio n technique. HISTORY: 76 years Female Reason: fall, hit right side of head, AMS, (PT MOVED DURING HEAD SCAN SENT BEST) FINDINGS: CT HEAD: There is some motion artifact which the could obscure a subtle abnormality. There is no intracranial hemorrhage, edema or mass effect. The brain parenchyma demonstrates periventricular and deep white m atter hypodensities compatible with chronic microvascular ischemic changes. No hydrocephalus. The visualized portions of the orbits and paranasal sinuses appear unremarkable. CT cervical spine: The alignment of the posterior spinal line satisfactory. The vertebral body heights are preserved. There is straightening of the cervical spine curvature whic h could relate to muscle spasm. The alignment at the facet joints is satisfactory. There is a multile adam disc height the narrowing most prominent at the C5/6 and the C4/5. Small posterior osteophytes at these levels are seen. More prominent anterior osteophytes are noted. The paraspinal soft tissues appear unremarkable. IMPRESSION: CT HEAD: No acute process. CT cervical spine: Degenerative changes. No fracture seen. Electronically signed by: Fabrizio Flores MD (01/10/2022 9:46 PM) [id number]
[2022-01-10 21:52] LABS: BILIRUBIN,URINE NEGATIVE (NEG); CLARITY,URINE CLEAR; COLOR,URINE YELLOW
[2022-01-10 21:53] LABS: NITRITE,URINE NEGATIVE (NEG); PROTEIN,URINE 30 mg/dL (NEG-TRACE); UROBILINOGEN,URINE 0.2 mg/dL (0.2 mg/dL)
[2022-01-10 21:54] LABS: BACTERIA,URINE 0 /HPF (0-FEW); RBC,URINE OCC /HPF (0-2)
[2022-01-10] MEDS ORDERED: IV NORMAL SALINE 1000ML BAG 1,000 ML IV ONE (22:00)
--- NOTE | 2022-01-10 22:02 | RAD ---
EXAMINATION: XR CHEST 1V. HISTORY: 76 years Female Reason: fall / COMPARISON: December 10, 2021. Findings: The lungs are clear. The heart size is mildly enlarged. This can be exaggerated by the port able technique. There is no effusion or pneumothorax. The mediastinum and margy appear unremarkable. Impression: Prominent cardiac size. No focal infiltrate. Electronically signed by: Fabrizio Flores MD (01/10/2022 9:59 PM) [id number]
[2022-01-10] MEDS ORDERED: CONTRAST GIVEN. MC PRN (23:00)
--- NOTE | 2022-01-10 23:07 | RAD ---
CT chest, abdomen and pelvis with contrast PQRS statement: CT scans at this facility use dose reduction including either automated exposure cont rol, iterative reconstructions, and /or weight based radiation dosing via mA and kV modification when appropriate to reduce radiation dose to as low as reasonably achievable. Contrast: 60 mL Omnipaque 300 intravenous contrast. COMPARISON: CT abdomen and pelvis December 11, 2021, CT chest November 25, 2021 and prior studies. HISTORY: Sepsis unknown source. Chest findings: Calcified plaque thoracic aorta and coronary arteries. Moderate cardiomegaly. Coronar y vessels and esophagus are unremarkable. No adenopathy in the chest. Left mastectomy. Trachea and br onchi are unremarkable. Thin linear discoid atelectasis of the lung bases. No pulmonary opacities or pleural effusions. Bones are unremarkable. Abdomen findings: Cholecystectomy. Mild bilateral renal pelviectasis. Kidneys, adrenal glands, liver, pancreas and spleen are normal. Calcified plaque of the abdominal aorta and iliac arteries. Small sl iding hiatal hernia of the gastroesophageal junction. Appendix is normal. No obstruction or inflammat ion of the GI tract. No abdominal fluid or adenopathy. Lower lumbar disc disease and facet arthrosis. 2 cm shallow fatty umbilical abdominal wall hernia there is a surgical clip present. Pelvis findings: Prominent central uterine heterogeneous hypodensity thickness of 1 cm. Ovaries, blad tiffany, rectum and bones are unremarkable. No focal fluid or adenopathy IMPRESSION: 1. No acute process in the chest, abdomen or pelvis. The appendix is normal. 2. Prominent central uterine heterogeneous hypodensity with a thickness of 1 cm. This is abnormal in a postmenopausal female and could be indicative of endometrial canal fluid or endometrial hyperplasia /carcinoma. This could be further assessed with outpatient pelvic sonography. Electronically signed by: Miles Clifford MD (01/10/2022 11:05 PM) [facility]
[2022-01-10 23:24] LABS: INFLUENZA A PATIENT NEGATIVE (NEGATIVE); INFLUENZA B PATIENT NEGATIVE (NEGATIVE)
[2022-01-10] MEDS ORDERED: INSULIN REGULAR 100 UNIT/ML 3ML VIAL. IV ONE (23:30)
[2022-01-10] MEDS ORDERED: IOHEXOL 300 MG/ML 100ML VIAL. IV ONE (23:30)
[2022-01-10] MEDS ORDERED: LABETALOL 20 MG/4 ML DISP.SYRIN. IVP ONE (23:45)
[2022-01-11] VITALS (21 sets, daily range): BP systolic 83–169; BP diastolic 53–74
[2022-01-11] MEDS ORDERED: ACETAMINOPHEN 325 MG TABLET. PO PRN
[2022-01-11] MEDS ORDERED: ONDANSETRON PF 4 MG/2 ML VIAL. IVP PRN
[2022-01-11] MEDS ORDERED: MORPHINE SULFATE 2 MG/ML INJ. IVP PRN
[2022-01-11] MEDS ORDERED: VANCOMYCIN 2 GM in IV NORMAL SALINE 500ML BAG 500 ML IV ONE (00:30)
[2022-01-11] MEDS: METOPROLOL IV PUSH 5 MG/5 ML VIAL. IVP PRN (00:42)
[2022-01-11] MEDS: INSULIN REGULAR VIAL 100 UNIT in IV NORMAL SALINE 100ML 100 ML IV PRN ×2 (00:44→08:26)
[2022-01-11] MEDS: hydrALAZINE 20 MG/ML VIAL. IVP PRN (01:05)
[2022-01-11] MEDS: IV NORMAL SALINE 1000ML BAG 1,000 ML IV SCH ×5 (02:07→21:33)
--- NOTE | 2022-01-11 02:33 | EKG ---
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
[2022-01-11] MEDS ORDERED: ACETAMINOPHEN 500 MG TABLET PO ONE (03:00)
[2022-01-11 04:43] LABS: BASO # 0.1 x10^3/uL (0.0-0.2); BASO % 1 % (0-3); EOS % 0 % (0-3); HEMATOCRIT 40.7 % (36.0-47.0); HEMOGLOBIN 12.5 g/dL (12.0-15.5); LYMPH # 1.8 x10^3/uL (1.0-4.8); LYMPH % 18 % (24-48); MEAN CORPUSCULAR HEMOGLOBIN 26 pg (25-35); MEAN CORPUSCULAR HGB CONC 31 g/dL (31-37); MEAN CORPUSCULAR VOLUME 85 fL (79-100); MONO # 1.1 x10^3/uL (0.0-1.1); MONO % 10 % (0-9); NEUT # 7.5 x10^3/uL (1.8-7.7); NEUT % 72 % (31-73); PLATELET COUNT 189 x10^3/uL (140-400); RED BLOOD COUNT 4.82 x10^6/uL (3.50-5.40); WHITE BLOOD COUNT 10.4 x10^3/uL (4.0-11.0)
[2022-01-11 05:13] LABS: ALBUMIN 3.1 g/dL (3.4-5.0); ALBUMIN/GLOBULIN RATIO 0.7 (1.0-1.7); CALCIUM 9.3 mg/dL (8.5-10.1); CREATININE 1.4 mg/dL (0.6-1.0); GFR 44.4; POTASSIUM 3.8 mmol/L (3.5-5.1); TOTAL BILIRUBIN 0.4 mg/dL (0.2-1.0); TOTAL PROTEIN 7.8 g/dL (6.4-8.2)
[2022-01-11] MEDS ORDERED: METOPROLOL IV PUSH 5 MG/5 ML VIAL. IVP SCH (06:00)
[2022-01-11] MEDS ORDERED: hydrOXYzine 25 MG TABLET PO PRN (09:30)
[2022-01-11] MEDS ORDERED: DEXTROSE 50% 25 GM / 50ML DISP.SYRIN. IV PRN (09:30)
[2022-01-11] MEDS ORDERED: ALPRAZolam 0.5 MG TABLET PO PRN (09:30)
--- NOTE | 2022-01-11 09:35 | PDOC ---
Provider Note Date of Service: DATE: 01/11/22 TIME: 09:34 Provider Note Pt seen in ICU.H&P dictated.#[id number]. Justifications for Admission Other Justification ZOILA DERAS MD Jan 11, 2022 09:35
--- NOTE | 2022-01-11 10:08 | HP ---
DATE OF SERVICE: 01/11/2022 ADMIT DATE: 01/10/2022 PATIENT'S LOCATION: ICU room 110. REASON FOR ADMISSION TO THE HOSPITAL: Mechanical fall, uncontrolled blood sugar at 700 and fever. HISTORY OF PRESENT ILLNESS: The patient is a 76-year-old female. She had a fall going to the bathroom and hit her head and chest. The patient had some loss of consciousness and then she has been shaky and not doing well. After that, the patient was brought to the hospital. Blood sugars around 600 at home, here was 700, not in DKA. The patient was evaluated. CT head was negative. The patient was started on insulin drip and was admitted to the ICU. Blood pressure was also high, was started on Cardene drip. The patient had a fever of 102 last night. No fever this morning. PAST MEDICAL HISTORY: History of diabetes, hypertension, hyperlipidemia and she was in the hospital in October for COVID and also in December, also fever and confusion, improved with antibiotics. PAST SURGICAL HISTORY: Had a cholecystectomy, tubal ligation, mastectomy. PERSONAL HISTORY: Former smoker. Denies alcohol, denies any drugs. SOCIAL HISTORY: The patient lives at home with her son, ambulates with a walker. ALLERGIES: CODEINE AND IBUPROFEN. MEDICATIONS AT HOME: Xanax 0.5 twice a day, amlodipine 5 mg daily, atorvastatin 40 mg daily, vitamin D 1000 daily, Trulicity 1.5 injection once a week, Flonase 1 daily, gabapentin 900 mg 3 times daily, hydrochlorothiazide 12.5 daily, hydroxyzine for anxiety, insulin 25 units 3 times daily, Levemir 30 units b.i.d., lidocaine patch daily, metformin 1000 mg twice a day, olmesartan 5 mg daily. REVIEW OF SYSTEMS: The patient is seen in the ICU. She is still confused, remembers me, but does not remember my name, remember she is in the hospital, does not remember which hospital. She is awake, answering one word questions, but she looked dazed. PHYSICAL EXAMINATION: VITAL SIGNS: She had a fever of 102, pulse 92, respirations 28, blood pressure 158/66, 93 on room air, but at the time of admission, her blood pressure was 237/114. HEENT: Head is atraumatic. Pupils equal. Oral cavity, dry mouth. NECK: Supple. Thyroid not enlarged. JVD not elevated. CHEST: Symmetrical. CARDIOVASCULAR: S1, S2. There is a faint 3/6 murmur at the base of the heart. LUNGS: Clear to auscultation. ABDOMEN: Soft, bowel sounds present. No mass palpable. EXTERNAL GENITALIA: Mares placed. RECTAL: Deferred. EXTREMITIES: No calf tenderness, no edema. NEUROLOGIC: The patient is able to move the extremities. LABORATORY DATA: Shows a white count of 7, hemoglobin 12, platelets 203. Electrolyte shows sodium 134, potassium 4.6, chloride 96, bicarbonate 29, BUN 12, creatinine 1.5, glucose 100. LFTs normal. BNP 921. Troponin 251. Urine negative for infection. Toxicology, acetone was negative. Influenza A and B negative. COVID test rapid screen was negative. Had a CT head negative. CT chest, abdomen and pelvis negative. CT of the cervical spine negative. Chest x-ray negative. FINAL IMPRESSION: 1. Mechanical fall. 2. Uncontrolled diabetes with blood sugar at 700, hyperosmolar state, not in diabetic ketoacidosis. 3. Elevated troponin. 4. Malignant hypertension. 5. Fever with confusion. 6. History of breast cancer. PLAN: At this time, the patient was admitted to the hospital for an insulin drip to control the blood sugars now 200 range. Had started on Cardene drip. Blood pressure is 150/90 and ID is consulted. The patient had a white count normal, fever mostly viral and also Cardiology consult, elevated troponin and PT, OT and see how the patient's condition improves. CHAI DR: Ubaldo TID: [id number]
[2022-01-11] MEDS: INSULIN GLARGINE SYRINGE. SQ SCH ×2 (10:53→21:46)
[2022-01-11] MEDS: INSULIN LISPRO 300 UNITS/3 ML VIAL. SQ SCH ×4 (10:55→17:00)
[2022-01-11] MEDS: FLUTICASONE 50MCG/NASAL SPRAY 16GM BOTTLE. NS SCH (10:57)
[2022-01-11] MEDS: GABAPENTIN 100 MG CAPSULE. PO SCH ×4 (11:01→21:33)
[2022-01-11] MEDS: CHOLECALCIFEROL (VITAMIN D3) 1,000 UNIT TABLET PO SCH (11:01)
[2022-01-11] MEDS: ASPIRIN CHEWABLE 81 MG TABLET. PO SCH (11:01)
[2022-01-11] MEDS: hydroCHLOROthiazide 12.5 MG CAPSULE PO SCH (11:01)
[2022-01-11] MEDS: LIDOCAINE (700MG/PATCH) PATCH. TP SCH (11:01)
[2022-01-11] MEDS: LOSARTAN POTASSIUM 25 MG TABLET. PO SCH (11:02)
--- NOTE | 2022-01-11 12:21 | EKG ---
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
[2022-01-11 12:57] LABS: CHOLESTEROL/HDL RATIO 2.4
[2022-01-11] MEDS: CEFEPIME HCL IV Push 2 GM VIAL. IVP SCH ×2 (13:53→21:33)
[2022-01-11] MEDS: DAPTOmycin (GENERIC) IVPB 430 MG in IV NORMAL SALINE 50ML 50 ML IV SCH (14:45)
--- NOTE | 2022-01-11 19:43 | CONS ---
DATE OF CONSULTATION: 01/11/2022 REQUESTING PHYSICIAN: Jr Marx MD REASON FOR CONSULTATION: Fever and encephalopathy. HISTORY OF PRESENT ILLNESS: This is a 76-year-old -Israeli female who came in with having a mechanical fall and uncontrolled glucose. The patient had 700 blood glucose, also had 104 fever. Initially, the patient fell into the bathroom, hit the head and chest, it is questionable for a second or a minute loss of consciousness, but has been not doing well since then with the shakiness and fever. Sugar has been 700. The patient is not taking any of her medications she admitted. The patient also had a high blood pressure and Cardene drip was started. No nausea, vomiting, diarrhea noted. The patient is also not responding appropriately, and the patient was given a dose of vancomycin and consult has been requested. PAST MEDICAL HISTORY: Positive for history of diabetes, hypertension, hyperlipidemia. The patient had COVID in October, has had cholecystectomy, tubal ligation and mastectomy. SOCIAL HISTORY: Negative for smoking, alcohol, illicit drug use. Lives at home with her son. ALLERGIES: LISTED ALLERGIC TO CODEINE AND IBUPROFEN. CURRENT MEDICATIONS: Reviewed. REVIEW OF SYSTEMS: As in HPI. All other systems reviewed are negative. PHYSICAL EXAMINATION: GENERAL: Arousable female who does not respond, not in distress. VITAL SIGNS: Temperature max is 104.1, pulse 92, respirations 28, blood pressure 158/66. HEENT: Both pupils are round and reacting. No conjunctival lesion, no lesion in the mouth. NECK: Supple, no JVP, no lymphadenopathy. LUNGS: Clear. HEART: S1, S2, regular. ABDOMEN: Soft, nontender, no organomegaly. EXTREMITIES: No edema or cyanosis. SKIN: Unremarkable. NEUROLOGIC: The patient is not responsive, but moves all the extremities. No focal deficit. LABORATORY DATA: White count is 10.4. BUN and creatinine is 12 and 1.4. Glucose has improved. AST, ALT is normal. Her blood glucose when she came in was 700 and troponin 251. Urinalysis unremarkable for infection. Acetone negative. Influenza screen and COVID rapid negative. Blood culture is in the process. The patient had chest CT, abdomen and pelvis CT done, which is not showing any acute changes. CT head showed no acute changes. IMPRESSION: 1. Encephalopathy. 2. Fever. 3. Hyperglycemia. 4. Mechanical fall. 5. Elevated troponin. 6. Malignant hypertension. 7. History of breast cancer. RECOMMENDATIONS: Another set of blood cultures and I would use daptomycin and cefepime. Supportive care. The patient may need MRI of the head. This may have been secondary to her hyperglycemic state for a long period of time. May need a lumbar puncture. Supportive care and will continue to follow. Thank you very much, Dr. Marx, for giving me opportunity to participate in this patient's care. YANELIS/AUGUSTA DR: YANELIS/carmen TID: [id number]
[2022-01-11] MEDS: PATCH REMOVAL. MC SCH (21:00)
[2022-01-11] MEDS: ATORVASTATIN CALCIUM 40 MG TABLET. PO SCH (21:38)
[2022-01-12] VITALS (13 sets, daily range): BP systolic 91–141; BP diastolic 48–72
[2022-01-12 05:31] LABS: BASO # 0.1 x10^3/uL (0.0-0.2); BASO % 1 % (0-3); EOS % 0 % (0-3); HEMATOCRIT 43.9 % (36.0-47.0); HEMOGLOBIN 13.5 g/dL (12.0-15.5); LYMPH # 2.1 x10^3/uL (1.0-4.8); LYMPH % 24 % (24-48); MEAN CORPUSCULAR HEMOGLOBIN 26 pg (25-35); MEAN CORPUSCULAR HGB CONC 31 g/dL (31-37); MEAN CORPUSCULAR VOLUME 83 fL (79-100); MONO # 0.8 x10^3/uL (0.0-1.1); MONO % 10 % (0-9); NEUT # 5.5 x10^3/uL (1.8-7.7); NEUT % 65 % (31-73); PLATELET COUNT 194 x10^3/uL (140-400); RED BLOOD COUNT 5.28 x10^6/uL (3.50-5.40); RED CELL DISTRIBUTION WIDTH 15.8 % (11.5-14.5); WHITE BLOOD COUNT 8.5 x10^3/uL (4.0-11.0)
[2022-01-12 05:49] LABS: CREATININE 1.3 mg/dL (0.6-1.0); GFR 48.3; POTASSIUM 3.6 mmol/L (3.5-5.1)
[2022-01-12] MEDS: CEFEPIME HCL IV Push 2 GM VIAL. IVP SCH ×2 (08:12→20:55)
[2022-01-12] MEDS: IV NORMAL SALINE 1000ML BAG 1,000 ML IV SCH (08:12)
[2022-01-12] MEDS: GABAPENTIN 100 MG CAPSULE. PO SCH ×3 (08:13→20:55)
[2022-01-12] MEDS: CHOLECALCIFEROL (VITAMIN D3) 1,000 UNIT TABLET PO SCH (08:13)
[2022-01-12] MEDS: LIDOCAINE (700MG/PATCH) PATCH. TP SCH ×2 (08:13→09:00)
[2022-01-12] MEDS: hydroCHLOROthiazide 12.5 MG CAPSULE PO SCH (08:13)
[2022-01-12] MEDS: ASPIRIN CHEWABLE 81 MG TABLET. PO SCH (08:14)
[2022-01-12] MEDS: LOSARTAN POTASSIUM 25 MG TABLET. PO SCH (08:14)
[2022-01-12] MEDS: INSULIN LISPRO 300 UNITS/3 ML VIAL. SQ SCH ×6 (08:15→17:08)
[2022-01-12] MEDS: INSULIN GLARGINE SYRINGE. SQ SCH ×2 (08:23→21:10)
[2022-01-12] MEDS: FLUTICASONE 50MCG/NASAL SPRAY 16GM BOTTLE. NS SCH (09:00)
--- NOTE | 2022-01-12 09:13 | PDOC ---
PROGRESS NOTES Date of Service: DATE: 01/12/22 TIME: 09:09 Subjective Subjective PTSEEN IN ICU MORE AWAKE , TALKING ,NO FEVERS Objective Objective Vital Signs Date Time Temp Pulse Resp B/P (MAP) Pulse Ox O2 Delivery O2 Flow Rate FiO2 01/12/22 08:14 78 136/65 01/12/22 08:00 Room Air 01/12/22 08:00 98.7 18 96 98.7 Intake and Output 01/12/22 07:00 Intake Total 6532 ml Output Total 900 ml Balance 5632 ml Intake Oral 200 ml IV Total 6332 ml Output Urine Total 900 ml Physical Exam Abdomen: Soft Heart: Normal S1, Normal S2 Extremities: No clubbing General: Alert, Cooperative HEENT: PERRLA MUSCULOSKELETAL: No joint tenderness, No deformity, No swelling Neck: No JVD Neuro: Normal speech Psych/Mental Status: Mood NL Skin: No breakdown COMMENT irene present Diagnosis Problem List Problems Medical Problems: (1) Fever, unknown origin Status: Acute (2) Hyperglycemia due to type 1 diabetes mellitus Status: Acute FINAL IMPRESSION: 1. Mechanical fall ,no fractures. 2. Uncontrolled diabetes with blood sugar at 700, hyperosmolar state, not in diabetic ketoacidosis. 3. Elevated troponin. 4. Malignant hypertension. 5. Fever with confusion. 6. History of breast cancer. PLAN: pt off insulin drip pt off cardine drip BS 200 range no fevers wbc normal c/s neg so far cr 1.3 c/s neg ct scan -neg dapto+cefepime cardiology to see her ID consult noted transfer her out of ICU today. At this time, the patient was admitted to the hospital for an insulin drip to control the blood sugars now 200 range. Had started on Cardene drip. Blood pressure is 150/90 and ID is consulted. The patient had a white count normal, fever mostly viral and also Cardiology consult, elevated troponin and PT, OT and see how the patient's condition improves. Assessment Assessment Problems Medical Problems: (1) Fever, unknown origin Status: Acute (2) Hyperglycemia due to type 1 diabetes mellitus Status: Acute Plan Plan of Care Problems Medical Problems: (1) Fever, unknown origin Status: Acute (2) Hyperglycemia due to type 1 diabetes mellitus Status: Acute Comment Review of Relevant I have reviewed the following items dixon (where applicable) has been applied. Labs Laboratory Tests Test 01/11/22 09:45 01/11/22 10:53 01/11/22 12:30 01/11/22 17:09 Glucose (Fingerstick) 89 mg/dL (70-99) 115 mg/dL (70-99) 81 mg/dL (70-99) Hemoglobin A1c 15.0 % (4.8-5.6) Troponin I High Sensitivity 399 ng/L (4-50) Triglycerides Level 129 mg/dL (0-150) Cholesterol Level 163 mg/dL (0-200) LDL Cholesterol, Calculated 70 mg/dL (0-100) VLDL Cholesterol, Calculated 26 mg/dL (0-40) Non-HDL Cholesterol Calculated 96 mg/dL (0-129) HDL Cholesterol 67 mg/dL (40-60) Cholesterol/HDL Ratio 2.4 Thyroid Stimulating Hormone (TSH) 0.301 uIU/mL (0.358-3.74) Test 01/11/22 21:42 01/12/22 04:55 Glucose (Fingerstick) 187 mg/dL (70-99) White Blood Count 8.5 x10^3/uL (4.0-11.0) Red Blood Count 5.28 x10^6/uL (3.50-5.40) Hemoglobin 13.5 g/dL (12.0-15.5) Hematocrit 43.9 % (36.0-47.0) Mean Corpuscular Volume 83 fL (79-100) Mean Corpuscular Hemoglobin 26 pg (25-35) Mean Corpuscular Hemoglobin Concent 31 g/dL (31-37) Red Cell Distribution Width 15.8 % (11.5-14.5) Platelet Count 194 x10^3/uL (140-400) Neutrophils (%) (Auto) 65 % (31-73) Lymphocytes (%) (Auto) 24 % (24-48) Monocytes (%) (Auto) 10 % (0-9) Eosinophils (%) (Auto) 0 % (0-3) Basophils (%) (Auto) 1 % (0-3) Neutrophils # (Auto) 5.5 x10^3/uL (1.8-7.7) Lymphocytes # (Auto) 2.1 x10^3/uL (1.0-4.8) Monocytes # (Auto) 0.8 x10^3/uL (0.0-1.1) Eosinophils # (Auto) 0.0 x10^3/uL (0.0-0.7) Basophils # (Auto) 0.1 x10^3/uL (0.0-0.2) Sodium Level 141 mmol/L (136-145) Potassium Level 3.6 mmol/L (3.5-5.1) Chloride Level 107 mmol/L (98-107) Carbon Dioxide Level 26 mmol/L (21-32) Anion Gap 8 (6-14) Blood Urea Nitrogen 13 mg/dL (7-20) Creatinine 1.3 mg/dL (0.6-1.0) Estimated GFR (Cockcroft-Gault) 48.3 Glucose Level 237 mg/dL (70-99) Calcium Level 9.0 mg/dL (8.5-10.1) Microbiology 01/11/22 Blood Culture - Preliminary, Resulted NO GROWTH AFTER 1 DAY Medications Current Medications Alprazolam (Xanax) 0.5 mg PRN BID PRN PO ANXIETY / AGITATION; Start 01/11/22 at 09:30 Amlodipine Besylate (Norvasc) 5 mg DAILY PO Last administered on 01/12/22at 08:14; Start 01/11/22 at 10:00 Aspirin (Aspirin Chewable) 81 mg DAILY PO Last administered on 01/12/22at 08:14; Start 01/11/22 at 10:00 Atorvastatin Calcium (Lipitor) 40 mg QHS PO Last administered on 01/11/22at 21:38; Start 01/11/22 at 21:00 Cefepime HCl (Maxipime) 2 gm Q12HR IVP Last administered on 01/12/22at 08:12; Start 01/11/22 at 14:00 Daptomycin 430 mg/ Sodium Chloride 50 ml @ 100 mls/hr Q24H IV Last administered on 01/11/22at 14:45; Start 01/11/22 at 14:00 Dextrose (Dextrose 50%-Water Syringe) 12.5 gm PRN Q15MIN PRN IV SEE COMMENTS; Start 01/11/22 at 09:30 Fluticasone Propionate (Flonase) 2 spray DAILY NS Last administered on 01/11/22at 10:57; Start 01/11/22 at 10:00 Gabapentin (Neurontin) 100 mg TID PO Last administered on 01/12/22 08:13; Start 01/11/22 at 10:00 Hydrochlorothiazide (Microzide) 12.5 mg DAILY PO Last administered on 01/12/22 08:13; Start 01/11/22 at 10:00 Hydroxyzine HCl (Atarax) 25 mg PRN Q6HRS PRN PO ANXIETY / AGITATION; Start 01/11/22 at 09:30 Insulin Glargine (Lantus Syringe) 30 unit BID SQ Last administered on 01/12/22 08:23; Start 01/11/22 at 10:30 Insulin Human Lispro (HumaLOG) 0-5 UNITS TIDWMEALS SQ Last administered on 01/12/22 08:15; Start 01/11/22 at 12:00 Insulin Human Lispro (HumaLOG) 25 units TIDWMEALS SQ Last administered on 08:15; Start 01/11/22 at 12:00 Lidocaine (Lidoderm) 1 patch DAILY TP Last administered on 01/11/22 11:01; Start 01/11/22 at 10:00 Losartan Potassium (Cozaar) 25 mg DAILY PO Last administered on 01/12/22 08:14; Start 01/11/22 at 10:00 Metformin HCl (Glucophage) 1,000 mg BIDWMEALS PO ; Start 01/13/22 at 08:00 Miscellaneous (Lidoderm Patch Removal) 1 ea QHS MC Last administered on 01/11/22at 21:00; Start 01/11/22 at 21:00 Non-Formulary Medication (Dulaglutide (Trulicity)) 1.5 mg WEEKLY SQ ; Start 01/18/22 at 09:00; Status UNV Sodium Chloride 1,000 ml @ 100 mls/hr Q10H IV Last administered on 01/12/22 08:12; Start 01/11/22 at 09:30 Vitamin D (Vitamin D3) 1,000 unit DAILY PO Last administered on 01/12/22 08:13; Start 01/11/22 at 10:00 Vitals/I & O Vital Sign - Last 24 Hours 01/11/22 01/11/22 01/11/22 01/11/22 10:00 11:00 11:01 11:02 Pulse 96 90 91 91 Resp 23 18 B/P (MAP) 143/58 158/70 158/70 Pulse Ox 91 91 O2 Delivery Room Air Room Air 01/11/22 01/11/22 01/11/22 01/11/22 12:00 12:00 12:00 13:00 Temp 96.7 96.7 Pulse 90 92 Resp 22 B/P (MAP) 169/69 121/63 Pulse Ox 94 90 O2 Delivery Room Air Room Air Room Air 01/11/22 01/11/22 01/11/22 01/11/22 14:00 15:00 16:00 16:00 Pulse 88 86 86 Resp 22 B/P (MAP) 107/62 94/53 (67) 119/61 (80) Pulse Ox 90 92 92 O2 Delivery Room Air Room Air Room Air Room Air 01/11/22 01/11/22 01/11/22 01/11/22 16:00 17:00 18:00 19:00 Temp 97.1 97.1 Pulse 84 85 83 Resp 20 18 18 B/P (MAP) 97/62 (74) 101/61 (74) 105/64 (78) Pulse Ox 92 93 94 O2 Delivery Room Air Room Air Room Air 01/11/22 01/11/22 01/11/22 01/11/22 20:00 20:00 21:00 22:00 Temp 97.3 97.3 Pulse 85 98 78 Resp 18 20 16 B/P (MAP) 113/74 (87) 127/61 (83) 110/65 (80) Pulse Ox 95 95 96 O2 Delivery Room Air Room Air Room Air Room Air 01/11/22 01/12/22 01/12/22 01/12/22 23:00 00:00 00:00 01:00 Temp 97.7 97.7 Pulse 78 86 85 Resp 16 16 16 B/P (MAP) 107/58 (74) 109/57 (74) 136/62 (86) Pulse Ox 96 96 95 O2 Delivery Room Air Room Air Room Air Room Air 01/12/22 01/12/22 01/12/22 01/12/22 02:00 03:00 04:00 04:00 Temp 98.1 98.1 Pulse 86 82 92 Resp 16 20 18 B/P (MAP) 91/58 (69) 121/72 (88) 101/72 (82) Pulse Ox 94 97 97 O2 Delivery Room Air Room Air Room Air Room Air 01/12/22 01/12/22 01/12/22 01/12/22 05:00 06:00 07:00 08:00 Temp 98.7 98.7 Pulse 94 91 73 78 Resp 16 18 16 18 B/P (MAP) 97/59 (72) 98/48 (65) 103/52 (69) 136/68 (90) Pulse Ox 94 92 95 96 O2 Delivery Room Air Room Air Room Air Room Air 01/12/22 01/12/22 01/12/22 08:00 08:14 08:14 Pulse 78 78 B/P (MAP) 136/65 136/65 O2 Delivery Room Air Intake and Output 01/11/22 01/11/22 01/12/22 15:00 23:00 07:00 Intake Total 100 ml 2665 ml 3767 ml Output Total 200 ml 0 ml 700 ml Balance -100 ml 2665 ml 3067 ml Justifications for Admission Other Justification ZOILA DERAS MD Jan 12, 2022 09:13
--- NOTE | 2022-01-12 10:26 | PDOC2 ---
CARDIAC CONSULT DATE OF CONSULT Date of Consult DATE: 01/12/22 TIME: 09:57 REASON FOR CONSULT Reason for Consult: Elevated troponin, murmur REFERRING PHYSICIAN Referring Physician: Araseli SOURCE Source: Chart review HISTORY OF PRESENT ILLNESS HISTORY OF PRESENT ILLNESS This is a 76 yo female admitted for noted falls. She apparently hit the right side of her on the cabinet. She was noted to be shaky at home. EMS noted her with high BG. It appears that she has not been taking her DM as she should per chart review. At the present time, denies any chest pain or SOA. Could not ascertain any episode of syncope. Upon admission she was noted with high fever and BG in the 700. She is a very poor historian and could not tell me any details of how she fell. PAST MEDICAL HISTORY Past Medical History Cardiovascular: HTN, Hyperlipidemia Pulmonary: Covid-19 CENTRAL NERVOUS SYSTEM: Other (Vertigo) GI: GERD, Other (hiatal hernia; pancreatitis) Heme/Onc: Cancer (breast) Psych: Panic Musculoskeletal: Osteoarthritis Rheumatologic: Gout Infectious disease: No pertinent hx ENT: Other (OM; macular degeneration) Renal/: no pertinent history Endocrine: Diabetes (2) Dermatology: No pertinent hx PAST SURGICAL HISTORY Past Surgical History Cholecystectomy, Tubal Ligation, Other (eye surgery; left breast reduction) FAMILY HISTORY Family History: Heart Disease SOCIAL HISTORY Smoke: No ALCOHOL: none Drugs: None Lives: with Family CURRENT MEDICATIONS CURRENT MEDICATIONS Current Medications Medications (Trade) Dose Ordered Sig/Rell Route PRN Reason Start Time Stop Time Status Last Admin Dose Admin Amlodipine Besylate (Norvasc) 5 mg DAILY PO 01/11/22 10:00 01/12/22 08:14 Aspirin (Aspirin Chewable) 81 mg DAILY PO 01/11/22 10:00 01/12/22 08:14 Atorvastatin Calcium (Lipitor) 40 mg QHS PO 01/11/22 21:00 01/11/22 21:38 Vitamin D (Vitamin D3) 1,000 unit DAILY PO 01/11/22 10:00 01/12/22 08:13 Gabapentin (Neurontin) 100 mg TID PO 01/11/22 10:00 01/12/22 08:13 Lidocaine (Lidoderm) 1 patch DAILY TP 01/11/22 10:00 01/11/22 11:01 Fluticasone Propionate (Flonase) 2 spray DAILY NS 01/11/22 10:00 01/11/22 10:57 Hydrochlorothiazide (Microzide) 12.5 mg DAILY PO 01/11/22 10:00 01/12/22 08:13 Insulin Human Lispro (HumaLOG) 25 units TIDWMEALS SQ 01/11/22 12:00 01/12/22 08:15 Insulin Glargine (Lantus Syringe) 30 unit BID SQ 01/11/22 10:30 01/12/22 08:23 Losartan Potassium (Cozaar) 25 mg DAILY PO 01/11/22 10:00 01/12/22 08:14 Insulin Human Lispro (HumaLOG) 0-5 UNITS TIDWMEALS SQ 01/11/22 12:00 01/12/22 08:15 Miscellaneous (Lidoderm Patch Removal) 1 ea QHS MC 01/11/22 21:00 01/11/22 21:00 Daptomycin 430 mg/ Sodium Chloride 50 ml @ 100 mls/hr Q24H IV 01/11/22 14:00 01/11/22 14:45 Cefepime HCl (Maxipime) 2 gm Q12HR IVP 01/11/22 14:00 01/12/22 08:12 ALLERGIES ALLERGIES: Coded Allergies: codeine (Verified Adverse Reaction, Intermediate, "HYPERVENTILATE", 11/25/21) ibuprofen (Verified Adverse Reaction, Intermediate, "SICK", 11/25/21) ROS Review of System unreliable, poor historian PHYSICAL EXAM General: Alert, Oriented X3, Cooperative, No acute distress HEENT: Atraumatic, Mucous membr. moist/pink Lungs: Clear to auscultation, Normal air movement Heart: Regular rate (SR), Normal S1, Normal S2, Other (3/6 systolic murmur to apex) Abdomen: Soft, Other (obes) Extremities: No cyanosis, Other (2+ LE pitting edema) Skin: No breakdown, No significant lesion Neuro: Normal speech, Sensation intact Psych/Mental Status: Other (falt affect, poor recall) MUSCULOSKELETAL: Osteoarthritic changes both hands VITALS/I&O VITALS/I&O: Vital Signs Date Time Temp Pulse Resp B/P (MAP) Pulse Ox O2 Delivery O2 Flow Rate FiO2 01/12/22 08:14 78 136/65 01/12/22 08:00 Room Air 01/12/22 08:00 98.7 18 96 98.7 I & O 01/11/22 01/11/22 01/12/22 15:00 23:00 07:00 Intake Total 100 ml 2665 ml 3767 ml Output Total 200 ml 0 ml 700 ml Balance -100 ml 2665 ml 3067 ml LABS Lab: Laboratory Tests Test 01/11/22 10:53 01/11/22 12:30 01/11/22 17:09 01/11/22 21:42 Glucose (Fingerstick) 115 mg/dL (70-99) H 81 mg/dL (70-99) 187 mg/dL (70-99) H Hemoglobin A1c 15.0 % (4.8-5.6) H Troponin I High Sensitivity 399 ng/L (4-50) H Triglycerides Level 129 mg/dL (0-150) Cholesterol Level 163 mg/dL (0-200) LDL Cholesterol, Calculated 70 mg/dL (0-100) VLDL Cholesterol, Calculated 26 mg/dL (0-40) Non-HDL Cholesterol Calculated 96 mg/dL (0-129) HDL Cholesterol 67 mg/dL (40-60) H Cholesterol/HDL Ratio 2.4 Thyroid Stimulating Hormone (TSH) 0.301 uIU/mL (0.358-3.74) L Test 01/12/22 04:55 White Blood Count 8.5 x10^3/uL (4.0-11.0) Red Blood Count 5.28 x10^6/uL (3.50-5.40) Hemoglobin 13.5 g/dL (12.0-15.5) Hematocrit 43.9 % (36.0-47.0) Mean Corpuscular Volume 83 fL (79-100) Mean Corpuscular Hemoglobin 26 pg (25-35) Mean Corpuscular Hemoglobin Concent 31 g/dL (31-37) Red Cell Distribution Width 15.8 % (11.5-14.5) H Platelet Count 194 x10^3/uL (140-400) Neutrophils (%) (Auto) 65 % (31-73) Lymphocytes (%) (Auto) 24 % (24-48) Monocytes (%) (Auto) 10 % (0-9) H Eosinophils (%) (Auto) 0 % (0-3) Basophils (%) (Auto) 1 % (0-3) Neutrophils # (Auto) 5.5 x10^3/uL (1.8-7.7) Lymphocytes # (Auto) 2.1 x10^3/uL (1.0-4.8) Monocytes # (Auto) 0.8 x10^3/uL (0.0-1.1) Eosinophils # (Auto) 0.0 x10^3/uL (0.0-0.7) Basophils # (Auto) 0.1 x10^3/uL (0.0-0.2) Sodium Level 141 mmol/L (136-145) Potassium Level 3.6 mmol/L (3.5-5.1) Chloride Level 107 mmol/L (98-107) Carbon Dioxide Level 26 mmol/L (21-32) Anion Gap 8 (6-14) Blood Urea Nitrogen 13 mg/dL (7-20) Creatinine 1.3 mg/dL (0.6-1.0) H Estimated GFR (Cockcroft-Gault) 48.3 Glucose Level 237 mg/dL (70-99) H Calcium Level 9.0 mg/dL (8.5-10.1) Laboratory Tests 01/12/22 04:55 Laboratory Tests 01/12/22 04:55 ECHOCARDIOGRAM ECHOCARDIOGRAM <Conclusion> There is moderate concentric left ventricular hypertrophy. The left ventricular systolic function is normal and the ejection fraction is within normal range. EF 55% There is normal LV segmental wall motion. DATE: 12/11/21 [id number] ASSESSMENT/PLAN ASSESSMENT/PLAN 1. Fever: T max 104, unknown origin 2. Nontraumatic mechanical fall 3. HTN urgency: was on cardene, now controlled 4. Chronic mild troponin elevation: Suspect type 2 demand mediated. EKG SR with the same morphology as in the past. Trop same range as before. no CP 5. CKD3 6. Uncontrolled DM2: initially at 700. A1C 15 7. Obesity 8. Known mild MR: recent TTE with normal EF/WM 9. Metabolic encephalopathy 10. PSVT: x1 brief Recommendations Antibiotics per PCP Will need outpt MPI. RICARDO if ID warrants it Continue secondary prevention measures. Continue norvasc/ARB/HCTZ. monitor BP trend It appears pt could be noncompliant Supportive care CHERRI GUERRIER MAP DRAFTER Jan 12, 2022 10:26
--- NOTE | 2022-01-12 12:07 | PDOC ---
Infectious Disease Note Subjective Subjective Pt is feeling and looking better ROS ROS no n/v/d/sob Vital Sign Vital Signs Vital Signs Date Time Temp Pulse Resp B/P (MAP) Pulse Ox O2 Delivery O2 Flow Rate FiO2 01/12/22 11:15 98.3 88 19 141/67 (91) 95 Room Air 98.3 Physical Exam PHYSICAL EXAM GENERAL: awake, more appropriate VITAL SIGNS: stable HEENT: Both pupils are round and reacting. No conjunctival lesion, no lesion in the mouth. NECK: Supple, no JVP, no lymphadenopathy. LUNGS: Clear. HEART: S1, S2, regular. ABDOMEN: Soft, nontender, no organomegaly. EXTREMITIES: No edema or cyanosis. SKIN: Unremarkable. NEUROLOGIC: No focal deficit. Labs Lab Laboratory Tests Test 01/11/22 12:30 01/11/22 17:09 01/11/22 21:42 01/12/22 04:55 Hemoglobin A1c 15.0 % (4.8-5.6) Troponin I High Sensitivity 399 ng/L (4-50) Triglycerides Level 129 mg/dL (0-150) Cholesterol Level 163 mg/dL (0-200) LDL Cholesterol, Calculated 70 mg/dL (0-100) VLDL Cholesterol, Calculated 26 mg/dL (0-40) Non-HDL Cholesterol Calculated 96 mg/dL (0-129) HDL Cholesterol 67 mg/dL (40-60) Cholesterol/HDL Ratio 2.4 Thyroid Stimulating Hormone (TSH) 0.301 uIU/mL (0.358-3.74) Glucose (Fingerstick) 81 mg/dL (70-99) 187 mg/dL (70-99) White Blood Count 8.5 x10^3/uL (4.0-11.0) Red Blood Count 5.28 x10^6/uL (3.50-5.40) Hemoglobin 13.5 g/dL (12.0-15.5) Hematocrit 43.9 % (36.0-47.0) Mean Corpuscular Volume 83 fL (79-100) Mean Corpuscular Hemoglobin 26 pg (25-35) Mean Corpuscular Hemoglobin Concent 31 g/dL (31-37) Red Cell Distribution Width 15.8 % (11.5-14.5) Platelet Count 194 x10^3/uL (140-400) Neutrophils (%) (Auto) 65 % (31-73) Lymphocytes (%) (Auto) 24 % (24-48) Monocytes (%) (Auto) 10 % (0-9) Eosinophils (%) (Auto) 0 % (0-3) Basophils (%) (Auto) 1 % (0-3) Neutrophils # (Auto) 5.5 x10^3/uL (1.8-7.7) Lymphocytes # (Auto) 2.1 x10^3/uL (1.0-4.8) Monocytes # (Auto) 0.8 x10^3/uL (0.0-1.1) Eosinophils # (Auto) 0.0 x10^3/uL (0.0-0.7) Basophils # (Auto) 0.1 x10^3/uL (0.0-0.2) Sodium Level 141 mmol/L (136-145) Potassium Level 3.6 mmol/L (3.5-5.1) Chloride Level 107 mmol/L (98-107) Carbon Dioxide Level 26 mmol/L (21-32) Anion Gap 8 (6-14) Blood Urea Nitrogen 13 mg/dL (7-20) Creatinine 1.3 mg/dL (0.6-1.0) Estimated GFR (Cockcroft-Gault) 48.3 Glucose Level 237 mg/dL (70-99) Calcium Level 9.0 mg/dL (8.5-10.1) Test 01/12/22 11:54 Glucose (Fingerstick) 211 mg/dL (70-99) Micro Microbiology 01/11/22 Blood Culture - Preliminary, Resulted NO GROWTH AFTER 1 DAY Objective Assessment IMPRESSION: 1. Encephalopathy. Improved 2. Fever. 3. Hyperglycemia. 4. Mechanical fall. 5. Elevated troponin. 6. Malignant hypertension. 7. History of breast cancer. Plan Plan of Care Continue antibiotics. Continue supportive care PT OT RUDDY WELLS MD Jan 12, 2022 12:07
[2022-01-12] MEDS: DAPTOmycin (GENERIC) IVPB 430 MG in IV NORMAL SALINE 50ML 50 ML IV SCH (13:51)
[2022-01-12] MEDS: LACTOBACILLUS RHAMNOSUS GG 1 CAPSULE. PO SCH (20:55)
[2022-01-12] MEDS: PATCH REMOVAL. MC SCH (20:55)
[2022-01-12] MEDS: ATORVASTATIN CALCIUM 40 MG TABLET. PO SCH (20:55)
[2022-01-13 02:27] VITALS: BP 146/65
[2022-01-13 04:42] LABS: CALCIUM 8.7 mg/dL (8.5-10.1); CREATININE 1.1 mg/dL (0.6-1.0); GFR 58.6; POTASSIUM 3.3 mmol/L (3.5-5.1)
[2022-01-13] MEDS: IV NORMAL SALINE 1000ML BAG 1,000 ML IV SCH (06:21)
[2022-01-13 07:00] VITALS: BP 170/79
[2022-01-13] MEDS: INSULIN LISPRO 300 UNITS/3 ML VIAL. SQ SCH ×6 (07:52→17:08)
[2022-01-13] MEDS: hydrALAZINE 20 MG/ML VIAL. IVP PRN (08:03)
[2022-01-13] MEDS: LIDOCAINE (700MG/PATCH) PATCH. TP SCH (08:23)
[2022-01-13] MEDS: CEFEPIME HCL IV Push 2 GM VIAL. IVP SCH (08:23)
[2022-01-13] MEDS: hydroCHLOROthiazide 12.5 MG CAPSULE PO SCH (08:24)
[2022-01-13] MEDS: ASPIRIN CHEWABLE 81 MG TABLET. PO SCH (08:24)
[2022-01-13] MEDS: LACTOBACILLUS RHAMNOSUS GG 1 CAPSULE. PO SCH ×2 (08:24→21:13)
[2022-01-13] MEDS: CHOLECALCIFEROL (VITAMIN D3) 1,000 UNIT TABLET PO SCH (08:24)
[2022-01-13] MEDS: GABAPENTIN 100 MG CAPSULE. PO SCH ×3 (08:24→21:13)
[2022-01-13] MEDS: metFORMIN 500 MG TABLET PO SCH ×2 (08:24→16:32)
[2022-01-13] MEDS: FLUTICASONE 50MCG/NASAL SPRAY 16GM BOTTLE. NS SCH (08:25)
[2022-01-13] MEDS: LOSARTAN POTASSIUM 25 MG TABLET. PO SCH (08:25)
[2022-01-13] MEDS: INSULIN GLARGINE SYRINGE. SQ SCH ×2 (09:00→21:00)
[2022-01-13] MEDS: METOPROLOL IV PUSH 5 MG/5 ML VIAL. IVP PRN (09:21)
--- NOTE | 2022-01-13 09:34 | PDOC ---
PROGRESS NOTES Date of Service: DATE: 01/13/22 TIME: 09:33 Subjective Subjective pt remembers my name Objective Objective Vital Signs Date Time Temp Pulse Resp B/P (MAP) Pulse Ox O2 Delivery O2 Flow Rate FiO2 01/13/22 09:21 100 171/83 01/13/22 07:00 98.2 19 98 Room Air 98.2 Intake and Output 01/13/22 07:00 Intake Total 2465 ml Output Total 275 ml Balance 2190 ml Intake Oral 1510 ml IV Total 355 ml Blood Product IV Normal Saline Flush 600 ml Output Urine Total 275 ml Stool Total 0 ml Physical Exam Abdomen: Soft, Other (obes) Heart: Regular rate (SR), Normal S1, Normal S2, Other (3/6 systolic murmur to apex) Extremities: No cyanosis, Other (2+ LE pitting edema) General: Alert, Oriented X3, Cooperative, No acute distress HEENT: Atraumatic, Mucous membr. moist/pink Lungs: Clear to auscultation, Normal air movement MUSCULOSKELETAL: Osteoarthritic changes both hands Neck: No JVD Neuro: Normal speech, Sensation intact Psych/Mental Status: Other (falt affect, poor recall) Skin: No breakdown, No significant lesion COMMENT irene present Diagnosis Problem List Problems Medical Problems: (1) Fever, unknown origin Status: Acute (2) Hyperglycemia due to type 1 diabetes mellitus Status: Acute Assessment Assessment Problems Medical Problems: (1) Fever, unknown origin Status: Acute (2) Hyperglycemia due to type 1 diabetes mellitus Status: Acute FINAL IMPRESSION: 1. Mechanical fall. 2. Uncontrolled diabetes with blood sugar at 700, hyperosmolar state, not in diabetic ketoacidosis. 3. Elevated troponin. 4. Malignant hypertension. 5. Fever with confusion. 6. History of breast cancer. PLAN: BS 150 range A!C 15 no more fevers blood c/s neg pot 3.2 replace ,cbcb ok d/c bonilla d/c iv fluids SNU screen At this time, the patient was admitted to the hospital for an insulin drip to control the blood sugars now 200 range. Had started on Cardene drip. Blood pressure is 150/90 and ID is consulted. The patient had a white count normal, fever mostly viral and also Cardiology consult, elevated troponin and PT, OT and see how the patient's condition improves. Plan Plan of Care Problems Medical Problems: (1) Fever, unknown origin Status: Acute (2) Hyperglycemia due to type 1 diabetes mellitus Status: Acute Comment Review of Relevant I have reviewed the following items dixon (where applicable) has been applied. Labs Laboratory Tests Test 01/12/22 11:54 01/12/22 17:02 01/12/22 20:17 01/13/22 02:45 Glucose (Fingerstick) 211 mg/dL (70-99) 166 mg/dL (70-99) 181 mg/dL (70-99) Sodium Level 144 mmol/L (136-145) Potassium Level 3.3 mmol/L (3.5-5.1) Chloride Level 109 mmol/L (98-107) Carbon Dioxide Level 24 mmol/L (21-32) Anion Gap 11 (6-14) Blood Urea Nitrogen 15 mg/dL (7-20) Creatinine 1.1 mg/dL (0.6-1.0) Estimated GFR (Cockcroft-Gault) 58.6 Glucose Level 129 mg/dL (70-99) Calcium Level 8.7 mg/dL (8.5-10.1) Creatine Kinase 90 U/L (26-192) Test 01/13/22 07:34 Glucose (Fingerstick) 131 mg/dL (70-99) Microbiology 01/11/22 Blood Culture - Preliminary, Resulted NO GROWTH AFTER 1 DAY Medications Current Medications Lactobacillus Rhamnosus (Culturelle) 1 cap BID PO Last administered on 01/13/22at 08:24; Start 01/12/22 at 21:00 Metformin HCl (Glucophage) 1,000 mg BIDWMEALS PO Last administered on 01/13/22at 08:24; Start 01/13/22 at 08:00 Non-Formulary Medication (Dulaglutide (Trulicity)) 1.5 mg WEEKLY SQ ; Start 01/18/22 at 09:00; Status UNV Vitals/I & O Vital Sign - Last 24 Hours 01/12/22 01/12/22 01/12/22 01/12/22 11:15 15:00 19:17 20:00 Temp 98.3 97.0 97.8 98.3 97.0 97.8 Pulse 88 96 89 Resp 19 19 18 B/P (MAP) 141/67 (91) 132/63 (86) 140/66 (90) Pulse Ox 95 95 93 O2 Delivery Room Air Room Air Room Air Room Air 01/12/22 01/13/22 01/13/22 01/13/22 22:34 02:27 07:00 08:03 Temp 98.0 98.0 98.2 98.0 98.0 98.2 Pulse 82 87 83 87 Resp 18 18 19 B/P (MAP) 114/56 (75) 146/65 (92) 170/79 (109) 169/87 Pulse Ox 94 98 98 O2 Delivery Room Air Room Air Room Air 01/13/22 01/13/22 01/13/22 08:25 08:25 09:21 Pulse 87 87 100 B/P (MAP) 169/67 169/67 171/83 Intake and Output 01/12/22 01/12/22 01/13/22 15:00 23:00 07:00 Intake Total 1200 ml 665 ml 600 ml Output Total 75 ml 200 ml Balance 1125 ml 665 ml 400 ml Justifications for Admission Other Justification ZOILA DERAS MD Jan 13, 2022 09:34
[2022-01-13] MEDS ORDERED: POTASSIUM CHLORIDE 20 MEQ TABLET.ER. PO ONE (09:45)
[2022-01-13 11:00] VITALS: BP 122/75
--- NOTE | 2022-01-13 12:33 | PDOC ---
CHERRI GUERRIER ELECTRIC ARC FURNACE OPERATOR 01/13/22 1233: CARDIO Progress Notes Date and Time Date of Service 01/13/2022 Time of Evaluation 1220 Subjective Subjective: No Chest Pain, No shortness of breath, No Palpitations Vitals Vitals Vital Signs Date Time Temp Pulse Resp B/P (MAP) Pulse Ox O2 Delivery O2 Flow Rate FiO2 01/13/22 11:00 98.7 90 19 122/75 (91) 97 Room Air 98.7 Weight Weight [ ] Input and Output Intake and Output Intake and Output 01/13/22 07:00 Intake Total 2465 ml Output Total 275 ml Balance 2190 ml Intake Oral 1510 ml IV Total 355 ml Blood Product IV Normal Saline Flush 600 ml Output Urine Total 275 ml Stool Total 0 ml Laboratory Labs Laboratory Tests Test 01/12/22 17:02 01/12/22 20:17 01/13/22 02:45 01/13/22 07:34 Glucose (Fingerstick) 166 mg/dL (70-99) 181 mg/dL (70-99) 131 mg/dL (70-99) Sodium Level 144 mmol/L (136-145) Potassium Level 3.3 mmol/L (3.5-5.1) Chloride Level 109 mmol/L (98-107) Carbon Dioxide Level 24 mmol/L (21-32) Anion Gap 11 (6-14) Blood Urea Nitrogen 15 mg/dL (7-20) Creatinine 1.1 mg/dL (0.6-1.0) Estimated GFR (Cockcroft-Gault) 58.6 Glucose Level 129 mg/dL (70-99) Calcium Level 8.7 mg/dL (8.5-10.1) Creatine Kinase 90 U/L (26-192) Test 01/13/22 11:06 Glucose (Fingerstick) 231 mg/dL (70-99) Microbiology Micro Microbiology 01/11/22 Blood Culture - Preliminary, Resulted NO GROWTH AFTER 1 DAY Physical Exam HEENT: Neck Supple W Full Motion Chest: Symmetric LUNGS: Clear to Auscultation Heart: S1S2, RRR (SR) Abdomen: Soft N/T Extremities: No Calf Tenderness Neurology: alert, oriented, follow commands Assessment Assessment 1. Fever: T max 104, unknown origin 2. Nontraumatic mechanical fall 3. HTN urgency: better 4. Chronic mild troponin elevation: Suspect type 2 demand mediated. EKG SR with the same morphology as in the past. Trop same range as before. no CP 5. CKD3 6. Uncontrolled DM2: initially at 700. A1C 15 7. Obesity 8. Known mild MR: recent TTE with normal EF/WM 9. Metabolic encephalopathy: better 10. PSVT: x1 brief, none further 11. Hypokalemia: replace Recommendations Antibiotics per PCP Will need outpt MPI. Follow up in office RICARDO if ID warrants it Continue secondary prevention measures. Continue norvasc/ARB/HCTZ It appears pt could be noncompliant Supportive care Justicifation of Admission Dx: Justifications for Admission: Justification of Admission Dx: No JOZEF ARMSTRONG MD 01/13/22 1637: CARDIO Progress Notes Assessment Assessment Patient seen and examined I agree with our nurse practitioners assessment and plan. Fever: Work-up in progress. Nontraumatic mechanical fall HTN urgency: better. Continue medications. Chronic mild troponin elevation: Suspect type 2 demand mediated. EKG SR with the same morphology as in the past. Trop same range as before. no CP. Outpatient stress testing. CKD3 Uncontrolled DM2: initially at 700. A1C 15 Obesity Known mild MR: recent TTE with normal EF/WM Metabolic encephalopathy: better PSVT: x1 brief, none further Hypokalemia: replaced CHERRI GUERRIER APRN Jan 13, 2022 12:33 JOZEF ARMSTRONG MD Jan 13, 2022 16:37
--- NOTE | 2022-01-13 13:36 | PDOC ---
Infectious Disease Note Subjective Subjective Pt is feeling and looking better says ready to go home ROS ROS No nausea vomiting diarrhea chest pain shortness of breath or fever Vital Sign Vital Signs Vital Signs Date Time Temp Pulse Resp B/P (MAP) Pulse Ox O2 Delivery O2 Flow Rate FiO2 01/13/22 11:00 98.7 90 19 122/75 (91) 97 Room Air 98.7 Physical Exam PHYSICAL EXAM GENERAL: awake, more appropriate VITAL SIGNS: stable HEENT: Both pupils are round and reacting. No conjunctival lesion, no lesion in the mouth. NECK: Supple, no JVP, no lymphadenopathy. LUNGS: Clear. HEART: S1, S2, regular. ABDOMEN: Soft, nontender, no organomegaly. EXTREMITIES: No edema or cyanosis. SKIN: Unremarkable. NEUROLOGIC: No focal deficit. Labs Lab Laboratory Tests Test 01/12/22 17:02 01/12/22 20:17 01/13/22 02:45 01/13/22 07:34 Glucose (Fingerstick) 166 mg/dL (70-99) 181 mg/dL (70-99) 131 mg/dL (70-99) Sodium Level 144 mmol/L (136-145) Potassium Level 3.3 mmol/L (3.5-5.1) Chloride Level 109 mmol/L (98-107) Carbon Dioxide Level 24 mmol/L (21-32) Anion Gap 11 (6-14) Blood Urea Nitrogen 15 mg/dL (7-20) Creatinine 1.1 mg/dL (0.6-1.0) Estimated GFR (Cockcroft-Gault) 58.6 Glucose Level 129 mg/dL (70-99) Calcium Level 8.7 mg/dL (8.5-10.1) Creatine Kinase 90 U/L (26-192) Test 01/13/22 11:06 Glucose (Fingerstick) 231 mg/dL (70-99) Micro Microbiology 01/11/22 Blood Culture - Preliminary, Resulted NO GROWTH AFTER 1 DAY Objective Assessment IMPRESSION: 1. Encephalopathy. Improved 2. Fever. 3. Hyperglycemia. 4. Mechanical fall. 5. Elevated troponin. 6. Malignant hypertension. 7. History of breast cancer. Plan Plan of Care Continue antibiotics. Change IV to p.o. Augmentin continue supportive care PT OT RUDDY WELLS MD Jan 13, 2022 13:35
--- NOTE | 2022-01-13 14:54 | RAD ---
EXAM: Bilateral knees, 2 views; bilateral hips and pelvis, 3 views. HISTORY: Pain. COMPARISON: None. FINDINGS: Bilateral knees: 2 views of both knees are obtained. There is no fracture, dislocation or subluxation . There is minimal right medial compartment spurring. There is enthesopathy along the bilateral katz lae. There is no significant joint effusion. There is a possible tiny joint loose body inferior to th e overlying the left Hoffa's fat pad. Pelvis and bilateral hips: A frontal view the pelvis and frog-leg views of both hips are obtained. Th ere is no fracture, dislocation or subluxation. The femoral heads are normal in configuration. There is degenerative change at the lumbosacral junction. IMPRESSION: No acute osseous finding. Electronically signed by: Albania Watson MD (01/13/2022 2:52 PM) [id number]
[2022-01-13 15:07] VITALS: BP 143/64
[2022-01-13 19:00] VITALS: BP 118/56
--- NOTE | 2022-01-13 20:18 | CONS ---
DATE OF CONSULTATION: 01/13/2022 ATTENDING PHYSICIAN: Jr Marx MD REASON FOR CONSULTATION: The patient was seen at the request of Dr. Marx for rehab evaluation. HISTORY OF PRESENT ILLNESS: This is a 76-year-old female admitted through the Emergency Room on 01/10/2022 with uncontrolled blood sugar of 700, fever and mechanical fall. She fell down going to the bathroom and hit her head and chest, had some loss of consciousness, then had been shaky, not doing well. The patient had CT scan of the brain, cervical, abdomen and chest, which failed to reveal any acute abnormality. It revealed degenerative changes in her neck. The patient is receiving Cardene drip for controlling her blood pressure. The patient with known diabetes mellitus, hypertension, hyperlipidemia, was in the hospital in October for COVID-19 infection and also in 12/2021. The patient is status post cholecystectomy, tubal ligation, mastectomy, former smoker. The patient lives at home, had 2 steps to manage. She lives with her son and she walks using a walker. She denies any pain at present time. THE PATIENT IS KNOWN ALLERGIC TO CODEINE AND IBUPROFEN. The patient denies any trouble with bowel or bladder control or swallowing. PHYSICAL EXAMINATION: Today revealed an elderly female. She is alert, oriented to place and person, follows commands appropriately. Moves all 4 extremities voluntarily where she had 4/5 to 4+/5 grade muscle strength. Deep tendon reflexes are 1-2+ and symmetrical with absent right knee and both ankle jerks. She had some edema of her feet and legs. The patient had some stiffness of her hips and knees. Diffuse tenderness to palpation over thoracic and lumbar spine area. Straight leg raising test is negative bilaterally. She requires minimal assistance with bed mobility. I have not tested her transfers or ambulation skills at this time. Plantar reflex is flexor bilaterally. She seemed to have equal perception of touch and pinprick sensation bilaterally. She is obese. 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 RECOMMENDATIONS: Agree with the plan for physical therapy, occupational therapy and speech pathology to help with her deficits to get her up as tolerated and to rehab or fdc care unit for continued care when medically stable. Dr. Marx, I appreciate asking me to participate in the care of this interesting patient. I will be glad to see her for followup with you on as needed basis. LUKE/KIMBERLEE/NIIKTA DR: LUKE/carmen TID: [id number]
[2022-01-13] MEDS: PATCH REMOVAL. MC SCH (21:00)
[2022-01-13] MEDS: ATORVASTATIN CALCIUM 40 MG TABLET. PO SCH (21:13)
[2022-01-13] MEDS: AMOXICILLIN/K CLAV 875/125MG TABLET. PO SCH (21:13)
[2022-01-13 23:00] VITALS: BP 160/70
[2022-01-14 03:00] VITALS: BP 151/76
[2022-01-14 05:36] LABS: CALCIUM 8.5 mg/dL (8.5-10.1); CREATININE 1.1 mg/dL (0.6-1.0); GFR 58.6; POTASSIUM 3.7 mmol/L (3.5-5.1)
[2022-01-14 07:00] VITALS: BP 132/72
[2022-01-14] MEDS: LIDOCAINE (700MG/PATCH) PATCH. TP SCH (07:44)
[2022-01-14] MEDS: INSULIN GLARGINE SYRINGE. SQ SCH ×2 (07:45→21:00)
[2022-01-14] MEDS: INSULIN LISPRO 300 UNITS/3 ML VIAL. SQ SCH ×6 (07:46→16:32)
[2022-01-14] MEDS: metFORMIN 500 MG TABLET PO SCH ×2 (07:49→16:30)
[2022-01-14] MEDS: LACTOBACILLUS RHAMNOSUS GG 1 CAPSULE. PO SCH ×2 (07:49→20:39)
[2022-01-14] MEDS: LOSARTAN POTASSIUM 25 MG TABLET. PO SCH (07:49)
[2022-01-14] MEDS: CHOLECALCIFEROL (VITAMIN D3) 1,000 UNIT TABLET PO SCH (07:49)
[2022-01-14] MEDS: GABAPENTIN 100 MG CAPSULE. PO SCH ×3 (07:50→20:39)
[2022-01-14] MEDS: ASPIRIN CHEWABLE 81 MG TABLET. PO SCH (07:50)
[2022-01-14] MEDS: AMOXICILLIN/K CLAV 875/125MG TABLET. PO SCH ×2 (07:50→20:39)
[2022-01-14] MEDS: hydroCHLOROthiazide 12.5 MG CAPSULE PO SCH (07:50)
[2022-01-14] MEDS: FLUTICASONE 50MCG/NASAL SPRAY 16GM BOTTLE. NS SCH (07:50)
--- NOTE | 2022-01-14 09:16 | PDOC ---
PROGRESS NOTES Date of Service: DATE: 01/14/22 TIME: 09:13 Subjective Subjective had to straight cath x2 yesterday for bladder retention after bonilla removed. Objective Objective Vital Signs Date Time Temp Pulse Resp B/P (MAP) Pulse Ox O2 Delivery O2 Flow Rate FiO2 01/14/22 08:00 Room Air 01/14/22 07:49 94 132/72 01/14/22 07:00 97.8 18 94 97.8 Intake and Output 01/14/22 07:00 Intake Total 180 ml Output Total 1850 ml Balance -1670 ml Intake Oral 180 ml Output Urine Total 1850 ml # Bowel Movements 1 Physical Exam Abdomen: Soft, Other (obes) Heart: Regular rate (SR), Normal S1, Normal S2, Other (3/6 systolic murmur to apex) Extremities: No cyanosis, Other (2+ LE pitting edema) General: Alert, Oriented X3, Cooperative, No acute distress HEENT: Atraumatic, Mucous membr. moist/pink Lungs: Clear to auscultation, Normal air movement MUSCULOSKELETAL: Osteoarthritic changes both hands Neck: No JVD Neuro: Normal speech, Sensation intact Psych/Mental Status: Other (falt affect, poor recall) Skin: No breakdown, No significant lesion COMMENT d/allie bonilla . Diagnosis Problem List Problems Medical Problems: (1) Fever, unknown origin Status: Acute (2) Hyperglycemia due to type 1 diabetes mellitus Status: Acute Assessment Assessment Problems Medical Problems: (1) Fever, unknown origin Status: Acute (2) Hyperglycemia due to type 1 diabetes mellitus Status: Acute FINAL IMPRESSION: 1. Mechanical fall. 2. Uncontrolled diabetes with blood sugar at 700, hyperosmolar state, not in diabetic ketoacidosis. 3. Elevated troponin. 4. Malignant hypertension. 5. Fever with confusion. 6. History of breast cancer. PLAN: BS 50-150 range A!C 15 no more fevers blood c/s neg pot 3.6 today d/c antibiotics pt/ot/rehab SNU screen,pt needs SNU but pt refusing to go there. Plan Plan of Care Problems Medical Problems: (1) Fever, unknown origin Status: Acute (2) Hyperglycemia due to type 1 diabetes mellitus Status: Acute Comment Review of Relevant I have reviewed the following items dixon (where applicable) has been applied. Labs Laboratory Tests Test 01/13/22 11:06 01/13/22 16:56 01/13/22 20:27 01/13/22 21:04 Glucose (Fingerstick) 231 mg/dL (70-99) 106 mg/dL (70-99) 55 mg/dL (70-99) 76 mg/dL (70-99) Test 01/14/22 03:05 01/14/22 07:39 Sodium Level 142 mmol/L (136-145) Potassium Level 3.7 mmol/L (3.5-5.1) Chloride Level 109 mmol/L (98-107) Carbon Dioxide Level 25 mmol/L (21-32) Anion Gap 8 (6-14) Blood Urea Nitrogen 13 mg/dL (7-20) Creatinine 1.1 mg/dL (0.6-1.0) Estimated GFR (Cockcroft-Gault) 58.6 Glucose Level 129 mg/dL (70-99) Calcium Level 8.5 mg/dL (8.5-10.1) Glucose (Fingerstick) 161 mg/dL (70-99) Microbiology 01/11/22 Blood Culture - Preliminary, Resulted NO GROWTH AFTER 2 DAYS Medications Current Medications Amoxicillin/ Clavulanate Potassium (Augmentin 875/ 125mg) 1 tab BID PO Last administered on 01/14/22at 07:50; Start 01/13/22 at 21:00 Non-Formulary Medication (Dulaglutide (Trulicity)) 1.5 mg WEEKLY SQ ; Start 01/18/22 at 09:00; Status UNV Potassium Chloride (Klor-Con) 40 meq 1X ONCE PO Last administered on 01/13/22at 09:42; Start 01/13/22 at 09:45; Stop 01/13/22 at 09:46; Status DC Vitals/I & O Vital Sign - Last 24 Hours 01/13/22 01/13/22 01/13/22 01/13/22 09:21 11:00 15:07 19:00 Temp 98.7 98.7 98.6 98.7 98.7 98.6 Pulse 100 90 95 96 Resp 19 18 18 B/P (MAP) 171/83 122/75 (91) 143/64 (90) 118/56 (76) Pulse Ox 97 93 95 O2 Delivery Room Air Room Air Room Air 01/13/22 01/13/22 01/14/22 01/14/22 20:00 23:00 03:00 07:00 Temp 98.1 98.2 97.8 98.1 98.2 97.8 Pulse 94 93 94 Resp 18 18 18 B/P (MAP) 160/70 (100) 151/76 (101) 132/72 (92) Pulse Ox 94 97 94 O2 Delivery Room Air Room Air Room Air Room Air 01/14/22 01/14/22 01/14/22 07:49 07:49 08:00 Pulse 94 94 B/P (MAP) 132/72 132/72 O2 Delivery Room Air Intake and Output 01/13/22 01/13/22 01/14/22 15:00 23:00 07:00 Intake Total 0 ml 180 ml Output Total 900 ml 450 ml 500 ml Balance -900 ml -270 ml -500 ml Justifications for Admission Other Justification ZOILA DERAS MD Jan 14, 2022 09:16
--- NOTE | 2022-01-14 09:21 | PDOC ---
CHERRI GUERRIER MAINTAINABILITY ENGINEER 01/14/22 0921: CARDIO Progress Notes Date and Time Date of Service 01/14/2022 Time of Evaluation 1010 Subjective Subjective: No Chest Pain, No shortness of breath, No Palpitations Vitals Vitals Vital Signs Date Time Temp Pulse Resp B/P (MAP) Pulse Ox O2 Delivery O2 Flow Rate FiO2 01/14/22 08:00 Room Air 01/14/22 07:49 94 132/72 01/14/22 07:00 97.8 18 94 97.8 Weight Weight [ ] Input and Output Intake and Output Intake and Output 01/14/22 07:00 Intake Total 180 ml Output Total 1850 ml Balance -1670 ml Intake Oral 180 ml Output Urine Total 1850 ml # Bowel Movements 1 Laboratory Labs Laboratory Tests Test 01/13/22 11:06 01/13/22 16:56 01/13/22 20:27 01/13/22 21:04 Glucose (Fingerstick) 231 mg/dL (70-99) 106 mg/dL (70-99) 55 mg/dL (70-99) 76 mg/dL (70-99) Test 01/14/22 03:05 01/14/22 07:39 Sodium Level 142 mmol/L (136-145) Potassium Level 3.7 mmol/L (3.5-5.1) Chloride Level 109 mmol/L (98-107) Carbon Dioxide Level 25 mmol/L (21-32) Anion Gap 8 (6-14) Blood Urea Nitrogen 13 mg/dL (7-20) Creatinine 1.1 mg/dL (0.6-1.0) Estimated GFR (Cockcroft-Gault) 58.6 Glucose Level 129 mg/dL (70-99) Calcium Level 8.5 mg/dL (8.5-10.1) Glucose (Fingerstick) 161 mg/dL (70-99) Microbiology Micro Microbiology 01/11/22 Blood Culture - Preliminary, Resulted NO GROWTH AFTER 2 DAYS Physical Exam HEENT: Neck Supple W Full Motion Chest: Symmetric LUNGS: Clear to Auscultation Heart: S1S2, RRR (SR) Abdomen: Soft N/T Extremities: No Calf Tenderness Neurology: alert, oriented, follow commands Assessment Assessment 1. Fever: T max 104, unknown origin, no further fever 2. Nontraumatic mechanical fall 3. HTN urgency: controlled 4. Chronic mild troponin elevation: Suspect type 2 demand mediated. EKG SR with the same morphology as in the past. Trop same range as before. no CP 5. CKD3 6. Uncontrolled DM2: initially at 700. A1C 15 7. Obesity 8. Known mild MR: recent TTE with normal EF/WM 9. Metabolic encephalopathy: better 10. PSVT: x1 brief, none further 11. Hypokalemia: resolved Recommendations Antibiotics per PCP Will need outpt MPI. Follow up in office as scheduled RICARDO if ID warrants it Continue secondary prevention measures. Continue norvasc/ARB/HCTZ She is noncompliant she had an outpt stress test in Dec and did not show up. Will further need to discuss with family to increase adherance. Will further arrange outpt MPI pending her compliance. Supportive care Justicifation of Admission Dx: Justifications for Admission: Justification of Admission Dx: No JOZEF ARMSTRONG MD 01/14/22 1743: CARDIO Progress Notes Assessment Assessment Patient seen and examined She is feeling mildly better. I agree with our nurse practitioners assessment and plan. Fever: Continue treatment and followed by the ID service. Nontraumatic mechanical fall HTN urgency: controlled Chronic mild troponin elevation: Suspect type 2 demand mediated. EKG SR with the same morphology as in the past. Trop same range as before. no CP. Outpatient monitor and follow-up. CKD3 Uncontrolled DM2: initially at 700. A1C 15 Known mild MR: recent TTE with normal EF/WM Metabolic encephalopathy: better PSVT: x1 brief, none further Hypokalemia: resolved CHERRI GUERRIER APRN Jan 14, 2022 09:21 JOZEF ARMSTRONG MD Jan 14, 2022 17:43
--- NOTE | 2022-01-14 10:16 | PDOC ---
PROGRESS NOTES Date of Service DATE: 01/14/22 TIME: 10:14 Subjective Subjective No new complaints. Objective Objective Vital Signs Date Time Temp Pulse Resp B/P (MAP) Pulse Ox O2 Delivery O2 Flow Rate FiO2 01/14/22 08:00 Room Air 01/14/22 07:49 94 132/72 01/14/22 07:00 97.8 18 94 97.8 Intake and Output 01/14/22 07:00 Intake Total 180 ml Output Total 1850 ml Balance -1670 ml Intake Oral 180 ml Output Urine Total 1850 ml # Bowel Movements 1 Physical Exam Physical Exam She is sitting in bedside recliner and seems to be comfortable and she moves all 4 extremities to commands and she requires assistance for transfers. X-rays of hips and knees revealed degenerative changes. Assessment Assessment Problems Medical Problems: (1) Fever, unknown origin Status: Acute (2) Hyperglycemia due to type 1 diabetes mellitus Status: Acute Plan Plan of Care To ask for rehab screen as she is refusing SNF transfer. Comment Review of Relevant I have reviewed the following items dixon (where applicable) has been applied. Labs Laboratory Tests Test 01/12/22 11:54 01/12/22 17:02 01/12/22 20:17 01/13/22 02:45 Glucose (Fingerstick) 211 mg/dL (70-99) 166 mg/dL (70-99) 181 mg/dL (70-99) Sodium Level 144 mmol/L (136-145) Potassium Level 3.3 mmol/L (3.5-5.1) Chloride Level 109 mmol/L (98-107) Carbon Dioxide Level 24 mmol/L (21-32) Anion Gap 11 (6-14) Blood Urea Nitrogen 15 mg/dL (7-20) Creatinine 1.1 mg/dL (0.6-1.0) Estimated GFR (Cockcroft-Gault) 58.6 Glucose Level 129 mg/dL (70-99) Calcium Level 8.7 mg/dL (8.5-10.1) Creatine Kinase 90 U/L (26-192) Test 01/13/22 07:34 01/13/22 11:06 01/13/22 16:56 01/13/22 20:27 Glucose (Fingerstick) 131 mg/dL (70-99) 231 mg/dL (70-99) 106 mg/dL (70-99) 55 mg/dL (70-99) Test 01/13/22 21:04 01/14/22 03:05 01/14/22 07:39 Glucose (Fingerstick) 76 mg/dL (70-99) 161 mg/dL (70-99) Sodium Level 142 mmol/L (136-145) Potassium Level 3.7 mmol/L (3.5-5.1) Chloride Level 109 mmol/L (98-107) Carbon Dioxide Level 25 mmol/L (21-32) Anion Gap 8 (6-14) Blood Urea Nitrogen 13 mg/dL (7-20) Creatinine 1.1 mg/dL (0.6-1.0) Estimated GFR (Cockcroft-Gault) 58.6 Glucose Level 129 mg/dL (70-99) Calcium Level 8.5 mg/dL (8.5-10.1) Laboratory Tests Test 01/13/22 11:06 01/13/22 16:56 01/13/22 20:27 01/13/22 21:04 Glucose (Fingerstick) 231 mg/dL (70-99) 106 mg/dL (70-99) 55 mg/dL (70-99) 76 mg/dL (70-99) Test 01/14/22 03:05 01/14/22 07:39 Sodium Level 142 mmol/L (136-145) Potassium Level 3.7 mmol/L (3.5-5.1) Chloride Level 109 mmol/L (98-107) Carbon Dioxide Level 25 mmol/L (21-32) Anion Gap 8 (6-14) Blood Urea Nitrogen 13 mg/dL (7-20) Creatinine 1.1 mg/dL (0.6-1.0) Estimated GFR (Cockcroft-Gault) 58.6 Glucose Level 129 mg/dL (70-99) Calcium Level 8.5 mg/dL (8.5-10.1) Glucose (Fingerstick) 161 mg/dL (70-99) Microbiology 01/11/22 Blood Culture - Preliminary, Resulted NO GROWTH AFTER 2 DAYS Medications Current Medications Sodium Chloride 500 ml @ 500 mls/hr 1X ONCE IV Last administered on 01/10/22at 21:47; Start 01/10/22 at 21:00; Stop 01/10/22 at 21:59; Status DC Sodium Chloride 1,000 ml @ 1,000 mls/hr 1X ONCE IV Last administered on 01/10/22at 21:47; Start 01/10/22 at 22:00; Stop 01/10/22 at 22:59; Status DC Iohexol (Omnipaque 300 Mg/ml) 60 ml 1X ONCE IV ; Start 01/10/22 at 23:30; Stop 01/10/22 at 23:31; Status DC Info (CONTRAST GIVEN -- Rx MONITORING) 1 each PRN DAILY PRN MC SEE COMMENTS; Start 01/10/22 at 23:00; Stop 01/12/22 at 22:59; Status DC Insulin Human Regular (HumuLIN R VIAL) 10 unit 1X ONCE IV Last administered on 01/10/22at 23:30; Start 01/10/22 at 23:30; Stop 01/10/22 at 23:31; Status DC Labetalol HCl (Normodyne Iv Push) 20 mg 1X ONCE IVP Last administered on 01/10/22at 23:33; Start 01/10/22 at 23:45; Stop 01/10/22 at 23:46; Status DC Vancomycin HCl 2 gm/Sodium Chloride 500 ml @ 250 mls/hr 1X ONCE IV Last administered on 01/10/22at 23:54; Start 01/11/22 at 00:30; Stop 01/11/22 at 02:29; Status DC Insulin Human Regular 100 unit/ Sodium Chloride 101 ml @ 1.978 mls/ hr CONT PRN IV PER PROTOCOL Last administered on 01/11/22at 08:26; Start 01/10/22 at 23:45; Stop 01/12/22 at 15:56; Status DC Ondansetron HCl (Zofran) 4 mg PRN Q8HRS PRN IVP NAUSEA/VOMITING 1ST CHOICE; Start 01/11/22 at 00:00; Stop 01/11/22 at 23:59; Status DC Morphine Sulfate (Morphine Sulfate) 2 mg PRN Q2HR PRN IVP SEVERE PAIN 7-10; Start 01/11/22 at 00:00; Stop 01/11/22 at 23:59; Status DC Sodium Chloride 1,000 ml @ 125 mls/hr Q8H IV Last administered on 01/11/22at 02:07; Start 01/11/22 at 00:00; Stop 01/11/22 at 23:59; Status DC Acetaminophen (Tylenol) 650 mg PRN Q4HRS PRN PO FEVER > 100.3'F Last administered on 01/11/22at 00:54; Start 01/11/22 at 00:00; Stop 01/11/22 at 23:59; Status DC Metoprolol Tartrate (Lopressor Vial) 5 mg Q6HRS IVP ; Start 01/11/22 at 06:00; Stop 01/11/22 at 00:35; Status DC Hydralazine HCl (Apresoline Inj) 10 mg PRN Q4HRS PRN IVP ELEVATED BP, 1st choice Last administered on 01/13/22at 08:03; Start 01/11/22 at 00:30 Metoprolol Tartrate (Lopressor Vial) 5 mg PRN Q6HRS PRN IVP HYPERTENSION Last administered on 01/13/22at 09:21; Start 01/11/22 at 00:30 Nicardipine HCl 50 mg/Sodium Chloride 250 ml @ 25 mls/hr CONT PRN IV PER PROTOCOL Last administered on 01/11/22at 02:26; Start 01/11/22 at 02:15; Stop 01/12/22 at 15:56; Status DC Acetaminophen (Tylenol) 325 mg 1X ONCE PO Last administered on 01/11/22at 02:43; Start 01/11/22 at 03:00; Stop 01/11/22 at 03:02; Status DC Alprazolam (Xanax) 0.5 mg PRN BID PRN PO ANXIETY / AGITATION; Start 01/11/22 at 09:30 Amlodipine Besylate (Norvasc) 5 mg DAILY PO Last administered on 01/14/22at 07:49; Start 01/11/22 at 10:00 Aspirin (Aspirin Chewable) 81 mg DAILY PO Last administered on 01/14/22at 07:50; Start 01/11/22 at 10:00 Atorvastatin Calcium (Lipitor) 40 mg QHS PO Last administered on 01/13/22at 21:13; Start 01/11/22 at 21:00 Vitamin D (Vitamin D3) 1,000 unit DAILY PO Last administered on 01/14/22at 07:49; Start 01/11/22 at 10:00 Gabapentin (Neurontin) 100 mg TID PO Last administered on 01/14/22at 07:50; Start 01/11/22 at 10:00 Hydroxyzine HCl (Atarax) 25 mg PRN Q6HRS PRN PO ANXIETY / AGITATION; Start 01/11/22 at 09:30 Lidocaine (Lidoderm) 1 patch DAILY TP Last administered on 01/14/22at 07:44; Start 01/11/22 at 10:00 Non-Formulary Medication (Dulaglutide (Trulicity)) 1.5 mg WEEKLY SQ ; Start 01/18/22 at 09:00; Status UNV Fluticasone Propionate (Flonase) 2 spray DAILY NS Last administered on 01/11/22at 10:57; Start 01/11/22 at 10:00 Hydrochlorothiazide (Microzide) 12.5 mg DAILY PO Last administered on 01/14/22at 07:50; Start 01/11/22 at 10:00; Stop 01/14/22 at 09:20; Status DC Insulin Human Lispro (HumaLOG) 25 units TIDWMEALS SQ Last administered on 01/14/22at 07:46; Start 01/11/22 at 12:00; Stop 01/14/22 at 09:20; Status DC Insulin Glargine (Lantus Syringe) 30 unit BID SQ Last administered on 01/14/22at 07:45; Start 01/11/22 at 10:30; Stop 01/14/22 at 09:20; Status DC Metformin HCl (Glucophage) 1,000 mg BIDWMEALS PO Last administered on 01/14/22at 07:49; Start 01/13/22 at 08:00 Losartan Potassium (Cozaar) 25 mg DAILY PO Last administered on 01/14/22at 07:49; Start 01/11/22 at 10:00 Insulin Human Lispro (HumaLOG) 0-5 UNITS TIDWMEALS SQ Last administered on 01/14/22at 07:46; Start 01/11/22 at 12:00 Dextrose (Dextrose 50%-Water Syringe) 12.5 gm PRN Q15MIN PRN IV SEE COMMENTS; Start 01/11/22 at 09:30 Sodium Chloride 1,000 ml @ 50 mls/hr Q20H IV Last administered on 01/13/22at 0 6:21; Start 01/11/22 at 09:30; Stop 01/13/22 at 09:34; Status DC Miscellaneous (Lidoderm Patch Removal) 1 ea QHS MC Last administered on 01/13/22at 21:00; Start 01/11/22 at 21:00 Daptomycin 430 mg/ Sodium Chloride 50 ml @ 100 mls/hr Q24H IV Last adminis tered on 01/12/22at 13:51; Start 01/11/22 at 14:00; Stop 01/13/22 at 13:36; Status DC Cefepime HCl (Maxipime) 2 gm Q12HR IVP Last administered on 01/13/22at 08:23; Start 01/11/22 at 14:00; Stop 01/13/22 at 13:36; Status DC Lactobacillus Rhamnosus (Culturelle) 1 cap BID PO Last administered on 01/14/22at 07:49; Start 01/12/22 at 21:00 Potassium Chloride (Klor-Con) 40 meq 1X ONCE PO Last administered on 01/13/22at 09:42; Start 01/13/22 at 09:45; Stop 01/13/22 at 09:46; Status DC Amoxicillin/ Clavulanate Potassium (Augmentin 875/ 125mg) 1 tab BID PO Last administered on 01/14/22at 07:50; Start 01/13/22 at 21:00 Insulin Glargine (Lantus Syringe) 25 unit BID SQ ; Start 01/14/22 at 21:00 Insulin Human Lispro (HumaLOG) 15 units TIDWMEALS SQ ; Start 01/14/22 at 12:00 Active Scripts Active Levemir (Insulin Detemir) 100 Unit/1 Ml Vial 30 Unit SQ BID Lidocaine PATCH (Lidocaine) 1 Each Adh..patch 1 Each TP DAILY REMOVE AFTER 12 HOURS Flonase Allergy Relief (Fluticasone Propionate) 9.9 Ml [place].susp 2 Sprays NS DAILY Reported Trulicity (Dulaglutide) 1.5 Mg/0.5 Ml Pen.injctr 1.5 Mg SQ WEEKLY Levocetirizine Dihydrochloride 5 Mg Tablet 1 Tab PO QHS Methocarbamol 500 Mg Tablet 500 Mg PO QID Olmesartan Medoxomil 5 Mg Tablet 1 Tab PO DAILY Gabapentin 100 Mg Capsule 1 Cap PO TID Hydrochlorothiazide Tablet (Hydrochlorothiazide) 12.5 Mg Tablet 1 Tab PO DAILY Atorvastatin Calcium 40 Mg Tablet 1 Tab PO DAILY Hydroxyzine Hcl 25 Mg Tablet 25 Mg PO PRN Q6HRS PRN Amlodipine Besylate 5 Mg Tablet 5 Mg PO DAILY Aspirin 81 Mg Tab.chew 81 Mg PO DAILY Novolog (Insulin Aspart) 100 Unit/1 Ml Vial 25 Unit SQ TIDWMEALS Alprazolam 0.5 Mg Tablet 1 Tab PO BID PRN Vitamin D3 (Cholecalciferol (Vitamin D3)) 1,000 Unit Tablet 1 Tab PO DAILY Meclizine Hcl 25 Mg Tablet 1 Tab PO TID Metformin Hcl 1,000 Mg Tablet 1,000 Mg PO BID Vitals/I & O Vital Sign - Last 24 Hours 01/13/22 01/13/22 01/13/22 01/13/22 11:00 15:07 19:00 20:00 Temp 98.7 98.7 98.6 98.7 98.7 98.6 Pulse 90 95 96 Resp 19 18 18 B/P (MAP) 122/75 (91) 143/64 (90) 118/56 (76) Pulse Ox 97 93 95 O2 Delivery Room Air Room Air Room Air Room Air 01/13/22 01/14/22 01/14/22 01/14/22 23:00 03:00 07:00 07:49 Temp 98.1 98.2 97.8 98.1 98.2 97.8 Pulse 94 93 94 94 Resp 18 18 18 B/P (MAP) 160/70 (100) 151/76 (101) 132/72 (92) 132/72 Pulse Ox 94 97 94 O2 Delivery Room Air Room Air Room Air 01/14/22 01/14/22 07:49 08:00 Pulse 94 B/P (MAP) 132/72 O2 Delivery Room Air Intake and Output 01/13/22 01/13/22 01/14/22 15:00 23:00 07:00 Intake Total 0 ml 180 ml Output Total 900 ml 450 ml 500 ml Balance -900 ml -270 ml -500 ml Justifications for Admission Other Justification ELLEN MOORE MD Jan 14, 2022 10:16
[2022-01-14 11:00] VITALS: BP 121/71
--- NOTE | 2022-01-14 13:23 | PDOC ---
Infectious Disease Note Subjective Subjective Pt is feeling and looking better says ready to go home ROS ROS NO N/V/D/ Vital Sign Vital Signs Vital Signs Date Time Temp Pulse Resp B/P (MAP) Pulse Ox O2 Delivery O2 Flow Rate FiO2 01/14/22 11:00 98.0 97 18 121/71 (88) 96 Room Air 98.0 Physical Exam PHYSICAL EXAM GENERAL: awake, more appropriate VITAL SIGNS: stable HEENT: Both pupils are round and reacting. No conjunctival lesion, no lesion in the mouth. NECK: Supple, no JVP, no lymphadenopathy. LUNGS: Clear. HEART: S1, S2, regular. ABDOMEN: Soft, nontender, no organomegaly. EXTREMITIES: No edema or cyanosis. SKIN: Unremarkable. NEUROLOGIC: No focal deficit. Labs Lab Laboratory Tests Test 01/13/22 16:56 01/13/22 20:27 01/13/22 21:04 01/14/22 03:05 Glucose (Fingerstick) 106 mg/dL (70-99) 55 mg/dL (70-99) 76 mg/dL (70-99) Sodium Level 142 mmol/L (136-145) Potassium Level 3.7 mmol/L (3.5-5.1) Chloride Level 109 mmol/L (98-107) Carbon Dioxide Level 25 mmol/L (21-32) Anion Gap 8 (6-14) Blood Urea Nitrogen 13 mg/dL (7-20) Creatinine 1.1 mg/dL (0.6-1.0) Estimated GFR (Cockcroft-Gault) 58.6 Glucose Level 129 mg/dL (70-99) Calcium Level 8.5 mg/dL (8.5-10.1) Test 01/14/22 07:39 01/14/22 11:20 Glucose (Fingerstick) 161 mg/dL (70-99) 90 mg/dL (70-99) Micro Microbiology 01/11/22 Blood Culture - Preliminary, Resulted NO GROWTH AFTER 1 DAY Objective Assessment IMPRESSION: 1. Encephalopathy. Improved 2. Fever. 3. Hyperglycemia. 4. Mechanical fall. 5. Elevated troponin. 6. Malignant hypertension. 7. History of breast cancer. Plan Plan of Care p.o. Augmentin continue supportive care PT OT RUDDY WELLS MD Jan 14, 2022 13:23
[2022-01-14 15:25] VITALS: BP 148/63
[2022-01-14 19:52] VITALS: BP 141/84
[2022-01-14] MEDS: PATCH REMOVAL. MC SCH (20:38)
[2022-01-14] MEDS: ATORVASTATIN CALCIUM 40 MG TABLET. PO SCH (20:39)
[2022-01-14 22:33] VITALS: BP 131/60
[2022-01-15 02:21] VITALS: BP 175/75
[2022-01-15 07:00] VITALS: BP 144/67
[2022-01-15] MEDS: metFORMIN 500 MG TABLET PO SCH ×2 (08:09→18:35)
[2022-01-15] MEDS: CHOLECALCIFEROL (VITAMIN D3) 1,000 UNIT TABLET PO SCH (08:10)
[2022-01-15] MEDS: LOSARTAN POTASSIUM 25 MG TABLET. PO SCH (08:10)
[2022-01-15] MEDS: ASPIRIN CHEWABLE 81 MG TABLET. PO SCH (08:11)
[2022-01-15] MEDS: LACTOBACILLUS RHAMNOSUS GG 1 CAPSULE. PO SCH ×2 (08:11→20:09)
[2022-01-15] MEDS: GABAPENTIN 100 MG CAPSULE. PO SCH ×5 (08:11→21:00)
[2022-01-15] MEDS: AMOXICILLIN/K CLAV 875/125MG TABLET. PO SCH ×2 (08:11→20:09)
[2022-01-15] MEDS: FLUTICASONE 50MCG/NASAL SPRAY 16GM BOTTLE. NS SCH (08:12)
[2022-01-15] MEDS: LIDOCAINE (700MG/PATCH) PATCH. TP SCH (08:13)
[2022-01-15] MEDS: INSULIN GLARGINE SYRINGE. SQ SCH ×2 (08:15→20:12)
[2022-01-15] MEDS: INSULIN LISPRO 300 UNITS/3 ML VIAL. SQ SCH ×6 (08:16→17:00)
--- NOTE | 2022-01-15 09:06 | PDOC ---
PROGRESS NOTES Date of Service DATE: 01/15/22 TIME: 09:05 Subjective Subjective No new complaints. Objective Objective Vital Signs Date Time Temp Pulse Resp B/P (MAP) Pulse Ox O2 Delivery O2 Flow Rate FiO2 01/15/22 08:11 83 144/67 01/15/22 02:21 98.3 18 95 Room Air 98.3 Intake and Output 01/15/22 07:00 Intake Total 860 ml Output Total 500 ml Balance 360 ml Intake Oral 860 ml Output Urine Total 500 ml # Voids 1 Physical Exam Physical Exam She is awake,supine in bed and she got up and walked with roller walker under supervision. Assessment Assessment Problems Medical Problems: (1) Fever, unknown origin Status: Acute (2) Hyperglycemia due to type 1 diabetes mellitus Status: Acute Plan Plan of Group Home with home health or out patient physical and occupational therapy follow up when medically stable. Comment Review of Relevant I have reviewed the following items dixon (where applicable) has been applied. Labs Laboratory Tests Test 01/13/22 11:06 01/13/22 16:56 01/13/22 20:27 01/13/22 21:04 Glucose (Fingerstick) 231 mg/dL (70-99) 106 mg/dL (70-99) 55 mg/dL (70-99) 76 mg/dL (70-99) Test 01/14/22 03:05 01/14/22 07:39 01/14/22 11:20 01/14/22 16:15 Sodium Level 142 mmol/L (136-145) Potassium Level 3.7 mmol/L (3.5-5.1) Chloride Level 109 mmol/L (98-107) Carbon Dioxide Level 25 mmol/L (21-32) Anion Gap 8 (6-14) Blood Urea Nitrogen 13 mg/dL (7-20) Creatinine 1.1 mg/dL (0.6-1.0) Estimated GFR (Cockcroft-Gault) 58.6 Glucose Level 129 mg/dL (70-99) Calcium Level 8.5 mg/dL (8.5-10.1) Glucose (Fingerstick) 161 mg/dL (70-99) 90 mg/dL (70-99) 101 mg/dL (70-99) Test 01/14/22 20:57 01/14/22 22:01 01/15/22 07:29 Glucose (Fingerstick) 61 mg/dL (70-99) 106 mg/dL (70-99) 236 mg/dL (70-99) Laboratory Tests Test 01/14/22 11:20 01/14/22 16:15 01/14/22 20:57 01/14/22 22:01 Glucose (Fingerstick) 90 mg/dL (70-99) 101 mg/dL (70-99) 61 mg/dL (70-99) 106 mg/dL (70-99) Test 01/15/22 07:29 Glucose (Fingerstick) 236 mg/dL (70-99) Microbiology 01/11/22 Blood Culture - Preliminary, Resulted NO GROWTH AFTER 3 DAYS Medications Current Medications Sodium Chloride 500 ml @ 500 mls/hr 1X ONCE IV Last administered on 01/10/22at 21:47; Start 01/10/22 at 21:00; Stop 01/10/22 at 21:59; Status DC Sodium Chloride 1,000 ml @ 1,000 mls/hr 1X ONCE IV Last administered on 01/10/22at 21:47; Start 01/10/22 at 22:00; Stop 01/10/22 at 22:59; Status DC Iohexol (Omnipaque 300 Mg/ml) 60 ml 1X ONCE IV ; Start 01/10/22 at 23:30; Stop 01/10/22 at 23:31; Status DC Info (CONTRAST GIVEN -- Rx MONITORING) 1 each PRN DAILY PRN MC SEE COMMENTS; Start 01/10/22 at 23:00; Stop 01/12/22 at 22:59; Status DC Insulin Human Regular (HumuLIN R VIAL) 10 unit 1X ONCE IV Last administered on 01/10/22at 23:30; Start 01/10/22 at 23:30; Stop 01/10/22 at 23:31; Status DC Labetalol HCl (Normodyne Iv Push) 20 mg 1X ONCE IVP Last administered on 01/10/22at 23:33; Start 01/10/22 at 23:45; Stop 01/10/22 at 23:46; Status DC Vancomycin HCl 2 gm/Sodium Chloride 500 ml @ 250 mls/hr 1X ONCE IV Last administered on 01/10/22at 23:54; Start 01/11/22 at 00:30; Stop 01/11/22 at 02:29; Status DC Insulin Human Regular 100 unit/ Sodium Chloride 101 ml @ 1.978 mls/ hr CONT PRN IV PER PROTOCOL Last administered on 01/11/22at 08:26; Start 01/10/22 at 23:45; Stop 01/12/22 at 15:56; Status DC Ondansetron HCl (Zofran) 4 mg PRN Q8HRS PRN IVP NAUSEA/VOMITING 1ST CHOICE; Start 01/11/22 at 00:00; Stop 01/11/22 at 23:59; Status DC Morphine Sulfate (Morphine Sulfate) 2 mg PRN Q2HR PRN IVP SEVERE PAIN 7-10; Start 01/11/22 at 00:00; Stop 01/11/22 at 23:59; Status DC Sodium Chloride 1,000 ml @ 125 mls/hr Q8H IV Last administered on 01/11/22at 02:07; Start 01/11/22 at 00:00; Stop 01/11/22 at 23:59; Status DC Acetaminophen (Tylenol) 650 mg PRN Q4HRS PRN PO FEVER > 100.3'F Last administered on 01/11/22at 00:54; Start 01/11/22 at 00:00; Stop 01/11/22 at 23:59; Status DC Metoprolol Tartrate (Lopressor Vial) 5 mg Q6HRS IVP ; Start 01/11/22 at 06:00; Stop 01/11/22 at 00:35; Status DC Hydralazine HCl (Apresoline Inj) 10 mg PRN Q4HRS PRN IVP ELEVATED BP, 1st choice Last administered on 01/13/22at 08:03; Start 01/11/22 at 00:30 Metoprolol Tartrate (Lopressor Vial) 5 mg PRN Q6HRS PRN IVP HYPERTENSION Last administered on 01/13/22at 09:21; Start 01/11/22 at 00:30 Nicardipine HCl 50 mg/Sodium Chloride 250 ml @ 25 mls/hr CONT PRN IV PER PROTOCOL Last administered on 01/11/22at 02:26; Start 01/11/22 at 02:15; Stop 01/12/22 at 15:56; Status DC Acetaminophen (Tylenol) 325 mg 1X ONCE PO Last administered on 01/11/22at 02:43; Start 01/11/22 at 03:00; Stop 01/11/22 at 03:02; Status DC Alprazolam (Xanax) 0.5 mg PRN BID PRN PO ANXIETY / AGITATION; Start 01/11/22 at 09:30 Amlodipine Besylate (Norvasc) 5 mg DAILY PO Last administered on 01/15/22at 08:11; Start 01/11/22 at 10:00 Aspirin (Aspirin Chewable) 81 mg DAILY PO Last administered on 01/15/22at 08:11; Start 01/11/22 at 10:00 Atorvastatin Calcium (Lipitor) 40 mg QHS PO Last administered on 01/14/22at 20:39; Start 01/11/22 at 21:00 Vitamin D (Vitamin D3) 1,000 unit DAILY PO Last administered on 01/15/22at 08:10; Start 01/11/22 at 10:00 Gabapentin (Neurontin) 100 mg TID PO Last administered on 01/15/22at 08:11; Start 01/11/22 at 10:00 Hydroxyzine HCl (Atarax) 25 mg PRN Q6HRS PRN PO ANXIETY / AGITATION; Start 01/11/22 at 09:30 Lidocaine (Lidoderm) 1 patch DAILY TP Last administered on 01/15/22 08:13; Start 01/11/22 at 10:00 Non-Formulary Medication (Dulaglutide (Trulicity)) 1.5 mg WEEKLY SQ ; Start 01/18/22 at 09:00; Status UNV Fluticasone Propionate (Flonase) 2 spray DAILY NS Last administered on 01/15/22at 08:12; Start 01/11/22 at 10:00 Hydrochlorothiazide (Microzide) 12.5 mg DAILY PO Last administered on 01/14/22at 07:50; Start 01/11/22 at 10:00; Stop 01/14/22 at 09:20; Status DC Insulin Human Lispro (HumaLOG) 25 units TIDWMEALS SQ Last administered on 01/14/22at 07:46; Start 01/11/22 at 12:00; Stop 01/14/22 at 09:20; Status DC Insulin Glargine (Lantus Syringe) 30 unit BID SQ Last administered on 01/14/22at 07:45; Start 01/11/22 at 10:30; Stop 01/14/22 at 09:20; Status DC Metformin HCl (Glucophage) 1,000 mg BIDWMEALS PO Last administered on 01/15/22at 08:09; Start 01/13/22 at 08:00 Losartan Potassium (Cozaar) 25 mg DAILY PO Last administered on 01/15/22at 08:10; Start 01/11/22 at 10:00 Insulin Human Lispro (HumaLOG) 0-5 UNITS TIDWMEALS SQ Last administered on 01/15/22at 08:16; Start 01/11/22 at 12:00 Dextrose (Dextrose 50%-Water Syringe) 12.5 gm PRN Q15MIN PRN IV SEE COMMENTS; Start 01/11/22 at 09:30 Sodium Chloride 1,000 ml @ 50 mls/hr Q20H IV Last administered on 01/13/22at 06:21; Start 01/11/22 at 09:30; Stop 01/13/22 at 09:34; Status DC Miscellaneous (Lidoderm Patch Removal) 1 ea QHS MC Last administered on 01/14/22at 20:38; Start 01/11/22 at 21:00 Daptomycin 430 mg/ Sodium Chloride 50 ml @ 100 mls/hr Q24H IV Last administered on 01/12/22at 13:51; Start 01/11/22 at 14:00; Stop 01/13/22 at 13:36; Status DC Cefepime HCl (Maxipime) 2 gm Q12HR IVP Last administered on 01/13/22at 08:23; Start 01/11/22 at 14:00; Stop 01/13/22 at 13:36; Status DC Lactobacillus Rhamnosus (Culturelle) 1 cap BID PO Last administered on 01/15/22 08:11; Start 01/12/22 at 21:00 Potassium Chloride (Klor-Con) 40 meq 1X ONCE PO Last administered on 01/13/22at 09:42; Start 01/13/22 at 09:45; Stop 01/13/22 at 09:46; Status DC Amoxicillin/ Clavulanate Potassium (Augmentin 875/ 125mg) 1 tab BID PO Last administered on 01/15/22at 08:11; Start 01/13/22 at 21:00 Insulin Glargine (Lantus Syringe) 25 unit BID SQ Last administered on 01/15/22at 08:15; Start 01/14/22 at 21:00 Insulin Human Lispro (HumaLOG) 15 units TIDWMEALS SQ Last administered on 01/15/22at 08:16; Start 01/14/22 at 12:00 Active Scripts Active Levemir (Insulin Detemir) 100 Unit/1 Ml Vial 30 Unit SQ BID Lidocaine PATCH (Lidocaine) 1 Each Adh..patch 1 Each TP DAILY REMOVE AFTER 12 HOURS Flonase Allergy Relief (Fluticasone Propionate) 9.9 Ml [place].susp 2 Sprays NS DAILY Reported Trulicity (Dulaglutide) 1.5 Mg/0.5 Ml Pen.injctr 1.5 Mg SQ WEEKLY Levocetirizine Dihydrochloride 5 Mg Tablet 1 Tab PO QHS Methocarbamol 500 Mg Tablet 500 Mg PO QID Olmesartan Medoxomil 5 Mg Tablet 1 Tab PO DAILY Gabapentin 100 Mg Capsule 1 Cap PO TID Hydrochlorothiazide Tablet (Hydrochlorothiazide) 12.5 Mg Tablet 1 Tab PO DAILY Atorvastatin Calcium 40 Mg Tablet 1 Tab PO DAILY Hydroxyzine Hcl 25 Mg Tablet 25 Mg PO PRN Q6HRS PRN Amlodipine Besylate 5 Mg Tablet 5 Mg PO DAILY Aspirin 81 Mg Tab.chew 81 Mg PO DAILY Novolog (Insulin Aspart) 100 Unit/1 Ml Vial 25 Unit SQ TIDWMEALS Alprazolam 0.5 Mg Tablet 1 Tab PO BID PRN Vitamin D3 (Cholecalciferol (Vitamin D3)) 1,000 Unit Tablet 1 Tab PO DAILY Meclizine Hcl 25 Mg Tablet 1 Tab PO TID Metformin Hcl 1,000 Mg Tablet 1,000 Mg PO BID Vitals/I & O Vital Sign - Last 24 Hours 01/14/22 01/14/22 01/14/22 01/14/22 11:00 11:00 15:25 19:52 Temp 98.0 98.3 97.8 98.0 98.3 97.8 Pulse 90 97 92 87 Resp 18 18 20 18 B/P (MAP) 121/71 (88) 121/71 (88) 148/63 (91) 141/84 (103) Pulse Ox 95 96 95 96 O2 Delivery Room Air Room Air Room Air Room Air 01/14/22 01/14/22 01/15/2201/15/22 20:00 22:33 02:21 08:10 Temp 98.1 98.3 98.1 98.3 Pulse 92 88 81 Resp 18 18 B/P (MAP) 131/60 (83) 175/75 (108) 144/67 Pulse Ox 98 95 O2 Delivery Room Air Room Air Room Air 01/15/22 08:11 Pulse 83 B/P (MAP) 144/67 Intake and Output 01/14/22 01/14/22 01/15/22 15:00 23:00 07:00 Intake Total 300 ml 440 ml 120 ml Output Total 500 ml Balance 300 ml 440 ml -380 ml Justifications for Admission Other Justification ELLEN MOORE MD Jan 15, 2022 09:06
--- NOTE | 2022-01-15 09:33 | PDOC ---
PROGRESS NOTES Date of Service: DATE: 01/15/22 TIME: 09:32 Subjective Subjective pt want to go home Objective Objective Vital Signs Date Time Temp Pulse Resp B/P (MAP) Pulse Ox O2 Delivery O2 Flow Rate FiO2 01/15/22 08:11 83 144/67 01/15/22 07:00 98.2 18 95 Room Air 98.2 Intake and Output 01/15/22 07:00 Intake Total 860 ml Output Total 500 ml Balance 360 ml Intake Oral 860 ml Output Urine Total 500 ml # Voids 1 Physical Exam Abdomen: Soft, Other (obes) Heart: Regular rate (SR), Normal S1, Normal S2, Other (3/6 systolic murmur to apex) Extremities: No cyanosis, Other (2+ LE pitting edema) General: Alert, Oriented X3, Cooperative, No acute distress HEENT: Atraumatic, Mucous membr. moist/pink Lungs: Clear to auscultation, Normal air movement MUSCULOSKELETAL: Osteoarthritic changes both hands Neck: No JVD Neuro: Normal speech, Sensation intact Psych/Mental Status: Other (falt affect, poor recall) Skin: No breakdown, No significant lesion COMMENT d/allie irene . Diagnosis Problem List Problems Medical Problems: (1) Fever, unknown origin Status: Acute (2) Hyperglycemia due to type 1 diabetes mellitus Status: Acute Assessment Assessment Problems Medical Problems: (1) Fever, unknown origin Status: Acute (2) Hyperglycemia due to type 1 diabetes mellitus Status: Acute FINAL IMPRESSION: 1. Mechanical fall. 2. Uncontrolled diabetes with blood sugar at 700, hyperosmolar state, not in diabetic ketoacidosis. 3. Elevated troponin. 4. Malignant hypertension. 5. Fever with confusion. 6. History of breast cancer. PLAN: d/c home with home health BS 50-150 range A!C 15 no more fevers blood c/s neg pot 3.6 today po antibiotics for 5 days pt/ot/rehab SNU screen, pt needs SNU but pt refusing to go there. Plan Plan of Care Problems Medical Problems: (1) Fever, unknown origin Status: Acute (2) Hyperglycemia due to type 1 diabetes mellitus Status: Acute Comment Review of Relevant I have reviewed the following items dixon (where applicable) has been applied. Labs Laboratory Tests Test 01/14/22 11:20 01/14/22 16:15 01/14/22 20:57 01/14/22 22:01 Glucose (Fingerstick) 90 mg/dL (70-99) 101 mg/dL (70-99) 61 mg/dL (70-99) 106 mg/dL (70-99) Test 01/15/22 07:29 Glucose (Fingerstick) 236 mg/dL (70-99) Microbiology 01/11/22 Blood Culture - Preliminary, Resulted NO GROWTH AFTER 3 DAYS Medications Current Medications Insulin Glargine (Lantus Syringe) 25 unit BID SQ Last administered on 01/15/22at 08:15; Start 01/14/22 at 21:00 Insulin Human Lispro (HumaLOG) 15 units TIDWMEALS SQ Last administered on 01/15/22at 08:16; Start 01/14/22 at 12:00 Non-Formulary Medication (Dulaglutide (Trulicity)) 1.5 mg WEEKLY SQ ; Start 01/18/22 at 09:00; Status UNV Vitals/I & O Vital Sign - Last 24 Hours 01/14/22 01/14/22 01/14/22 01/14/22 11:00 11:00 15:25 19:52 Temp 98.0 98.3 97.8 98.0 98.3 97.8 Pulse 90 97 92 87 Resp 18 18 20 18 B/P (MAP) 121/71 (88) 121/71 (88) 148/63 (91) 141/84 (103) Pulse Ox 95 96 95 96 O2 Delivery Room Air Room Air Room Air Room Air 01/14/22 01/14/22 01/15/22 01/15/22 20:00 22:33 02:21 07:00 Temp 98.1 98.3 98.2 98.1 98.3 98.2 Pulse 92 88 92 Resp 18 18 18 B/P (MAP) 131/60 (83) 175/75 (108) 144/67 (92) Pulse Ox 98 95 95 O2 Delivery Room Air Room Air Room Air Room Air 01/15/22 01/15/22 08:10 08:11 Pulse 81 83 B/P (MAP) 144/67 144/67 Intake and Output 01/14/22 01/14/22 01/15/22 15:00 23:00 07:00 Intake Total 300 ml 440 ml 120 ml Output Total 500 ml Balance 300 ml 440 ml -380 ml Justifications for Admission Other Justification ZOILA DERAS MD Jan 15, 2022 09:33
[2022-01-15] MEDS ORDERED: AMOX1TAB11 PO (09:36)
--- NOTE | 2022-01-15 09:38 | SNU/HH DC ---
DISCHARGE WITH HOME HEALTH DISCHARGE INFORMATION: Discharge Date: Jan 15, 2022 Final Diagnosis: Problems Medical Problems: (1) Fever, unknown origin Status: Acute (2) Hyperglycemia due to type 1 diabetes mellitus Status: Acute Condition on Discharge: Stable CODE STATUS: Code Status: Full HOME HEALTH: Face to Face: I certify this patient is under my care and that I, or a nurse practitioner or physician's assistant cook working with me, had a face to face encounter that meets the physician face to face encounter requirements with this patient on []. Medical Complications: DM RN For Eval/Treatment: Yes Physical Therapy For: Evalulation/Treatment Occupational Therapy For: Evaluation/Treatment Home Health Aide For: Self-care DIPPER FISH For: Community Resources Pt Meets Homebound Status: Poor coordination w/ amb. POST DISCHARGE ORDERS: Activity Instructions for Disc: Activity as tolerated Weight Bearing Status after Di: No restrictions, Full weight bearing, As tolerated DIET AFTER DISCHARGE: Cardiac Wound/Incision Care: No wound care needed CHECKS AFTER DISCHARGE: Checks after discharge: Check blood press - daily, Check blood sugar, ac/hs, Check your Temp as needed TREATMENT/EQUIPMENT ORDERS: Adaptive Equipment Issued: None, Raised toilet seat, Sliding board Discharge Respiratory Equipmen: Oxygen CERTIFICATION STATEMENT: Certification Statement: Certification Statement: Based on the above finding, I certify that this patient is confined to the home and needs intermittent retirement care, physical therapy and/or speech therapy, or continues to need occupational therapy.~ This patient is under my care, and I have initiated the establishment of the plan of care.~ This patient will be followed by myself or a community physician who will periodically review the plan of care. Home Meds Active Scripts Amoxicillin/Potassium Clav (AMOX TR-K CLV 875-125 MG TAB) 1 Each Tablet, 1 TAB PO BID for infection for 5 Days, #10 TAB Prov:ZOILA DERAS MD 01/15/22 Insulin Detemir (LEVEMIR) 100 Unit/1 Ml Vial, 30 UNIT SQ BID for DM, #94 VIAL Prov:GUILLERMO BONILLA MD 11/29/21 Lidocaine (Lidocaine PATCH ) 1 Each Adh..patch, 1 EACH TP DAILY for FOR LOCAL PAIN, #10 PATCH REMOVE AFTER 12 HOURS Prov:JO-ANN NOLASCO APRN 03/17/21 Fluticasone Propionate (Flonase Allergy Relief) 9.9 Ml [place].susp, 2 SPRAYS NS DAILY, #1 BOTTLE Prov:JOHNY GASCA 07/19/16 Reported Medications Dulaglutide (Trulicity) 1.5 Mg/0.5 Ml Pen.injctr, 1.5 MG SQ WEEKLY for DM, EACH 11/17/21 Levocetirizine Dihydrochloride (LEVOCETIRIZINE DIHYDROCHLORIDE) 5 Mg Tablet, 1 TAB PO QHS for allergies, #90 TAB 3 Refills 11/17/21 Methocarbamol (METHOCARBAMOL) 500 Mg Tablet, 500 MG PO QID for Pain, TAB 11/17/21 Olmesartan Medoxomil (Olmesartan Medoxomil) 5 Mg Tablet, 1 TAB PO DAILY for HTN 11/17/21 Gabapentin (Gabapentin) 100 Mg Capsule, 1 CAP PO TID for neuropathy 11/17/21 Atorvastatin Calcium (ATORVASTATIN CALCIUM) 40 Mg Tablet, 1 TAB PO DAILY for HLD 11/17/21 Hydroxyzine Hcl (HYDROXYZINE HCL) 25 Mg Tablet, 25 MG PO PRN Q6HRS PRN for ANXIETY / AGITATION, TAB 12/19/18 Amlodipine Besylate (AMLODIPINE BESYLATE) 5 Mg Tablet, 5 MG PO DAILY for hypertension, TAB 12/19/18 Aspirin (ASPIRIN) 81 Mg Tab.chew, 81 MG PO DAILY for , TAB.CHEW 12/19/18 Insulin Aspart (NOVOLOG) 100 Unit/1 Ml Vial, 25 UNIT SQ TIDWMEALS for , VIAL 02/25/15 Alprazolam (ALPRAZOLAM) 0.5 Mg Tablet, 1 TAB PO BID PRN for ANXIETY / AGITATION, #60 TAB 02/25/15 Cholecalciferol (Vitamin D3) (VITAMIN D3) 1,000 Unit Tablet, 1 TAB PO DAILY, #90 TAB 3 Refills 02/25/15 Meclizine Hcl (MECLIZINE HCL) 25 Mg Tablet, 1 TAB PO TID, #90 TAB 02/25/15 Metformin Hcl (METFORMIN HCL) 1,000 Mg Tablet, 1000 MG PO BID for ANTI-DIABETIC, TAB 0 Refills 02/25/15 Discontinued Reported Medications Hydrochlorothiazide (HYDROCHLOROTHIAZIDE TABLET) 12.5 Mg Tablet, 1 TAB PO DAILY for HTN 11/17/21 ZOILA DERAS MD Jan 15, 2022 09:38
[2022-01-15 11:00] VITALS: BP 117/78
--- NOTE | 2022-01-15 12:11 | PDOC ---
CARDIO Progress Notes Date and Time Date of Service 12/29/2021 Time of Evaluation 1200 Subjective Subjective: No Chest Pain, No shortness of breath, No Palpitations Vitals Vitals Vital Signs Date Time Temp Pulse Resp B/P (MAP) Pulse Ox O2 Delivery O2 Flow Rate FiO2 01/15/22 11:00 97.7 91 18 117/78 (91) 96 Room Air 97.7 Weight Weight [ ] Input and Output Intake and Output Intake and Output 01/15/22 07:00 Intake Total 860 ml Output Total 500 ml Balance 360 ml Intake Oral 860 ml Output Urine Total 500 ml # Voids 1 Laboratory Labs Laboratory Tests Test 01/14/22 16:15 01/14/22 20:57 01/14/22 22:01 01/15/22 07:29 Glucose (Fingerstick) 101 mg/dL (70-99) 61 mg/dL (70-99) 106 mg/dL (70-99) 236 mg/dL (70-99) Test 01/15/22 11:44 Glucose (Fingerstick) 172 mg/dL (70-99) Microbiology Micro Microbiology 01/11/22 Blood Culture - Preliminary, Resulted NO GROWTH AFTER 3 DAYS Physical Exam HEENT: Neck Supple W Full Motion Chest: Symmetric LUNGS: Clear to Auscultation Heart: S1S2, RRR (SR) Abdomen: Soft N/T Extremities: No Calf Tenderness Neurology: alert, oriented, follow commands Assessment Assessment 1. Fever: T max 104, unknown origin, no further fever 2. Nontraumatic mechanical fall 3. HTN urgency: controlled 4. Chronic mild troponin elevation: Suspect type 2 demand mediated. EKG SR with the same morphology as in the past. Trop same range as before. no CP 5. CKD3 6. Uncontrolled DM2: initially at 700. A1C 15 7. Obesity 8. Known mild MR: recent TTE with normal EF/WM 9. Metabolic encephalopathy: better 10. PSVT: x1 brief, none further 11. Hypokalemia: resolved Recommendations Antibiotics per PCP Will need outpt MPI. Follow up in office as scheduled Continue secondary prevention measures. Continue norvasc/ARB/HCTZ She is noncompliant she had an outpt stress test in Dec and did not show up. Will further need to discuss with family to increase adherance. Will further arrange outpt MPI pending her compliance. Supportive care Justicifation of Admission Dx: Justifications for Admission: Justification of Admission Dx: CHERRI Belcher APRN Jan 15, 2022 12:11
--- NOTE | 2022-01-15 12:59 | PDOC ---
Infectious Disease Note Subjective Subjective Pt is feeling and looking better says ready to go home ROS ROS No nausea vomiting diarrhea Vital Sign Vital Signs Vital Signs Date Time Temp Pulse Resp B/P (MAP) Pulse Ox O2 Delivery O2 Flow Rate FiO2 01/15/22 11:00 97.7 91 18 117/78 (91) 96 Room Air 97.7 Physical Exam PHYSICAL EXAM GENERAL: awake, more appropriate VITAL SIGNS: stable HEENT: Both pupils are round and reacting. No conjunctival lesion, no lesion in the mouth. NECK: Supple, no JVP, no lymphadenopathy. LUNGS: Clear. HEART: S1, S2, regular. ABDOMEN: Soft, nontender, no organomegaly. EXTREMITIES: No edema or cyanosis. SKIN: Unremarkable. NEUROLOGIC: No focal deficit. Labs Lab Laboratory Tests Test 01/14/22 16:15 01/14/22 20:57 01/14/22 22:01 01/15/22 07:29 Glucose (Fingerstick) 101 mg/dL (70-99) 61 mg/dL (70-99) 106 mg/dL (70-99) 236 mg/dL (70-99) Test 01/15/22 11:44 Glucose (Fingerstick) 172 mg/dL (70-99) Micro Microbiology 01/11/22 Blood Culture - Preliminary, Resulted NO GROWTH AFTER 1 DAY Objective Assessment IMPRESSION: 1. Encephalopathy. Improved 2. Fever. 3. Hyperglycemia. 4. Mechanical fall. 5. Elevated troponin. 6. Malignant hypertension. 7. History of breast cancer. Plan Plan of Care p.o. Augmentin continue supportive care PT OT RUDDY WELLS MD Jan 15, 2022 12:59
[2022-01-15 14:49] VITALS: BP 150/67
[2022-01-15 19:58] VITALS: BP 137/50
[2022-01-15] MEDS: ATORVASTATIN CALCIUM 40 MG TABLET. PO SCH (20:09)
[2022-01-15] MEDS: PATCH REMOVAL. MC SCH (20:19)
[2022-01-15 23:08] VITALS: BP 122/55
[2022-01-16] MEDS ORDERED: traMADol 50 MG TABLET PO PRN (00:30)
[2022-01-16 03:05] VITALS: BP 148/77
[2022-01-16 07:00] VITALS: BP 164/77
[2022-01-16] MEDS: INSULIN LISPRO 300 UNITS/3 ML VIAL. SQ SCH ×4 (08:00→12:00)
[2022-01-16] MEDS: FLUTICASONE 50MCG/NASAL SPRAY 16GM BOTTLE. NS SCH (09:00)
[2022-01-16] MEDS: LIDOCAINE (700MG/PATCH) PATCH. TP SCH (09:07)
[2022-01-16] MEDS: metFORMIN 500 MG TABLET PO SCH (09:07)
[2022-01-16] MEDS: ASPIRIN CHEWABLE 81 MG TABLET. PO SCH (09:07)
[2022-01-16] MEDS: CHOLECALCIFEROL (VITAMIN D3) 1,000 UNIT TABLET PO SCH (09:07)
[2022-01-16] MEDS: LOSARTAN POTASSIUM 25 MG TABLET. PO SCH (09:07)
[2022-01-16] MEDS: AMOXICILLIN/K CLAV 875/125MG TABLET. PO SCH (09:08)
[2022-01-16] MEDS: GABAPENTIN 100 MG CAPSULE. PO SCH (09:08)
[2022-01-16] MEDS: LACTOBACILLUS RHAMNOSUS GG 1 CAPSULE. PO SCH (09:10)
[2022-01-16] MEDS: INSULIN GLARGINE SYRINGE. SQ SCH (09:15)
--- NOTE | 2022-01-16 09:47 | PDOC ---
PROGRESS NOTES Date of Service DATE: 01/16/22 TIME: 09:45 Subjective Subjective No new complaints. Objective Objective Vital Signs Date Time Temp Pulse Resp B/P (MAP) Pulse Ox O2 Delivery O2 Flow Rate FiO2 01/16/22 09:08 74 164/77 01/16/22 07:00 97.8 18 95 Room Air 97.8 Intake and Output 01/16/22 07:00 Intake Total 650 ml Output Total 1000 ml Balance -350 ml Intake Oral 650 ml Output Urine Total 1000 ml # Voids 1 Physical Exam Physical Exam She is alert,in bed and seems to be comfortable and she hasbeen getting up and walking with roller walker on level surface. Assessment Assessment Problems Medical Problems: (1) Fever, unknown origin Status: Acute (2) Hyperglycemia due to type 1 diabetes mellitus Status: Acute Plan Plan of Care Agree with plans for home with home health follow up when medically stable. Comment Review of Relevant I have reviewed the following items dixon (where applicable) has been applied. Labs Laboratory Tests Test 01/14/22 11:20 01/14/22 16:15 01/14/22 20:57 01/14/22 22:01 Glucose (Fingerstick) 90 mg/dL (70-99) 101 mg/dL (70-99) 61 mg/dL (70-99) 106 mg/dL (70-99) Test 01/15/22 07:29 01/15/22 11:44 01/15/22 14:42 01/15/22 17:45 Glucose (Fingerstick) 236 mg/dL (70-99) 172 mg/dL (70-99) 228 mg/dL (70-99) 133 mg/dL (70-99) Test 01/15/22 20:05 01/16/22 07:31 Glucose (Fingerstick) 182 mg/dL (70-99) 127 mg/dL (70-99) Laboratory Tests Test 01/15/22 11:44 01/15/22 14:42 01/15/22 17:45 01/15/22 20:05 Glucose (Fingerstick) 172 mg/dL (70-99) 228 mg/dL (70-99) 133 mg/dL (70-99) 182 mg/dL (70-99) Test 01/16/22 07:31 Glucose (Fingerstick) 127 mg/dL (70-99) Microbiology 01/11/22 Blood Culture - Preliminary, Resulted NO GROWTH AFTER 4 DAYS Medications Current Medications Sodium Chloride 500 ml @ 500 mls/hr 1X ONCE IV Last administered on 01/10/22at 21:47; Start 01/10/22 at 21:00; Stop 01/10/22 at 21:59; Status DC Sodium Chloride 1,000 ml @ 1,000 mls/hr 1X ONCE IV Last administered on 01/10/22at 21:47; Start 01/10/22 at 22:00; Stop 01/10/22 at 22:59; Status DC Iohexol (Omnipaque 300 Mg/ml) 60 ml 1X ONCE IV ; Start 01/10/22 at 23:30; Stop 01/10/22 at 23:31; Status DC Info (CONTRAST GIVEN -- Rx MONITORING) 1 each PRN DAILY PRN MC SEE COMMENTS; Start 01/10/22 at 23:00; Stop 01/12/22 at 22:59; Status DC Insulin Human Regular (HumuLIN R VIAL) 10 unit 1X ONCE IV Last administered on 01/10/22at 23:30; Start 01/10/22 at 23:30; Stop 01/10/22 at 23:31; Status DC Labetalol HCl (Normodyne Iv Push) 20 mg 1X ONCE IVP Last administered on 01/10/22at 23:33; Start 01/10/22 at 23:45; Stop 01/10/22 at 23:46; Status DC Vancomycin HCl 2 gm/Sodium Chloride 500 ml @ 250 mls/hr 1X ONCE IV Last admi nistered on 01/10/22at 23:54; Start 01/11/22 at 00:30; Stop 01/11/22 at 02:29; Status DC Insulin Human Regular 100 unit/ Sodium Chloride 101 ml @ 1.978 mls/ hr CONT PRN IV PER PROTOCOL Last administered on 01/11/22at 08:26; Start 01/10/22 at 23:45; Stop 01/12/22 at 15:56; Status DC Ondansetron HCl (Zofran) 4 mg PRN Q8HRS PRN IVP NAUSEA/VOMITING 1ST CHOICE; Start 01/11/22 at 00:00; Stop 01/11/22 at 23:59; Status DC Morphine Sulfate (Morphine Sulfate) 2 mg PRN Q2HR PRN IVP SEVERE PAIN 7-10; Start 01/11/22 at 00:00; Stop 01/11/22 at 23:59; Status DC Sodium Chloride 1,000 ml @ 125 mls/hr Q8H IV Last administered on 01/11/22at 02:07; Start 01/11/22 at 00:00; Stop 01/11/22 at 23:59; Status DC Acetaminophen (Tylenol) 650 mg PRN Q4HRS PRN PO FEVER > 100.3'F Last administered on 01/11/22at 00:54; Start 01/11/22 at 00:00; Stop 01/11/22 at 23:59; Status DC Metoprolol Tartrate (Lopressor Vial) 5 mg Q6HRS IVP ; Start 01/11/22 at 06:00; Stop 01/11/22 at 00:35; Status DC Hydralazine HCl (Apresoline Inj) 10 mg PRN Q4HRS PRN IVP ELEVATED BP, 1st choice Last administered on 01/13/22at 08:03; Start 01/11/22 at 00:30 Metoprolol Tartrate (Lopressor Vial) 5 mg PRN Q6HRS PRN IVP HYPERTENSION Last administered on 01/13/22at 09:21; Start 01/11/22 at 00:30 Nicardipine HCl 50 mg/Sodium Chloride 250 ml @ 25 mls/hr CONT PRN IV PER PROTOCOL Last administered on 01/11/22at 02:26; Start 01/11/22 at 02:15; Stop 01/12/22 at 15:56; Status DC Acetaminophen (Tylenol) 325 mg 1X ONCE PO Last administered on 01/11/22at 02:43; Start 01/11/22 at 03:00; Stop 01/11/22 at 03:02; Status DC Alprazolam (Xanax) 0.5 mg PRN BID PRN PO ANXIETY / AGITATION; Start 01/11/22 at 09:30 Amlodipine Besylate (Norvasc) 5 mg DAILY PO Last administered on 01/16/22at 09:08; Start 01/11/22 at 10:00 Aspirin (Aspirin Chewable) 81 mg DAILY PO Last administered on 01/16/22at 09:07; Start 01/11/22 at 10:00 Atorvastatin Calcium (Lipitor) 40 mg QHS PO Last administered on 01/15/22 20:09; Start 01/11/22 at 21:00 Vitamin D (Vitamin D3) 1,000 unit DAILY PO Last administered on 01/16/22 09:07; Start 01/11/22 at 10:00 Gabapentin (Neurontin) 100 mg TID PO Last administered on 01/16/22at 09:08; St art 01/11/22 at 10:00 Hydroxyzine HCl (Atarax) 25 mg PRN Q6HRS PRN PO ANXIETY / AGITATION; Start 01/11/22 at 09:30 Lidocaine (Lidoderm) 1 patch DAILY TP Last administered on 01/16/22 09:07; Start 01/11/22 at 10:00 Non-Formulary Medication (Dulaglutide (Trulicity)) 1.5 mg WEEKLY SQ ; Start 01/18/22 at 09:00; Status UNV Fluticasone Propionate (Flonase) 2 spray DAILY NS Last administered on 01/15/22at 08:12; Start 01/11/22 at 10:00 Hydrochlorothiazide (Microzide) 12.5 mg DAILY PO Last administered on 01/14/22at 07:50; Start 01/11/22 at 10:00; Stop 01/14/22 at 09:20; Status DC Insulin Human Lispro (HumaLOG) 25 units TIDWMEALS SQ Last administered on 01/14/22 07:46; Start 01/11/22 at 12:00; Stop 01/14/22 at 09:20; Status DC Insulin Glargine (Lantus Syringe) 30 unit BID SQ Last administered on 01/14/22at 07:45; Start 01/11/22 at 10:30; Stop 01/14/22 at 09:20; Status DC Metformin HCl (Glucophage) 1,000 mg BIDWMEALS PO Last administered on 01/16/22 09:07; Start 01/13/22 at 08:00 Losartan Potassium (Cozaar) 25 mg DAILY PO Last administered on 01/16/22 09:07; Start 01/11/22 at 10:00 Insulin Human Lispro (HumaLOG) 0-5 UNITS TIDWMEALS SQ Last administered on 01/15/22at 12:31; Start 01/11/22 at 12:00 Dextrose (Dextrose 50%-Water Syringe) 12.5 gm PRN Q15MIN PRN IV SEE COMMENTS; Start 01/11/22 at 09:30 Sodium Chloride 1,000 ml @ 50 mls/hr Q20H IV Last administered on 01/13/22at 06:21; Start 01/11/22 at 09:30; Stop 01/13/22 at 09:34; Status DC Miscellaneous (Lidoderm Patch Removal) 1 ea QHS MC Last administered on 01/15/22at 20:19; Start 01/11/22 at 21:00 Daptomycin 430 mg/ Sodium Chloride 50 ml @ 100 mls/hr Q24H IV Last administered on 01/12/22at 13:51; Start 01/11/22 at 14:00; Stop 01/13/22 at 13:36; Status DC Cefepime HCl (Maxipime) 2 gm Q12HR IVP Last administered on 01/13/22at 08:23; Start 01/11/22 at 14:00; Stop 01/13/22 at 13:36; Status DC Lactobacillus Rhamnosus (Culturelle) 1 cap BID PO Last administered on 01/16/22at 09:10; Start 01/12/22 at 21:00 Potassium Chloride (Klor-Con) 40 meq 1X ONCE PO Last administered on 01/13/22at 09:42; Start 01/13/22 at 09:45; Stop 01/13/22 at 09:46; Status DC Amoxicillin/ Clavulanate Potassium (Augmentin 875/ 125mg) 1 tab BID PO Last administered on 01/16/22at 09:08; Start 01/13/22 at 21:00 Insulin Glargine (Lantus Syringe) 25 unit BID SQ Last administered on 01/16/22 09:15; Start 01/14/22 at 21:00 Insulin Human Lispro (HumaLOG) 15 units TIDWMEALS SQ Last administered on 01/15/22at 12:32; Start 01/14/22 at 12:00 Tramadol HCl (Ultram) 50 mg PRN Q6HRS PRN PO PAIN Last administered on 01/16/22at 00:40; Start 01/16/22 at 00:30 Active Scripts Active Amox Tr-K Clv 875-125 Mg Tab (Amoxicillin/Potassium Clav) 1 Each Tablet 1 Tab PO BID 5 Days Levemir (Insulin Detemir) 100 Unit/1 Ml Vial 30 Unit SQ BID Lidocaine PATCH (Lidocaine) 1 Each Adh..patch 1 Each TP DAILY REMOVE AFTER 12 HOURS Flonase Allergy Relief (Fluticasone Propionate) 9.9 Ml Anderson.susp 2 Sprays NS DAILY Reported Trulicity (Dulaglutide) 1.5 Mg/0.5 Ml Pen.injctr 1.5 Mg SQ WEEKLY Levocetirizine Dihydrochloride 5 Mg Tablet 1 Tab PO QHS Methocarbamol 500 Mg Tablet 500 Mg PO QID Olmesartan Medoxomil 5 Mg Tablet 1 Tab PO DAILY Gabapentin 100 Mg Capsule 1 Cap PO TID Atorvastatin Calcium 40 Mg Tablet 1 Tab PO DAILY Hydroxyzine Hcl 25 Mg Tablet 25 Mg PO PRN Q6HRS PRN Amlodipine Besylate 5 Mg Tablet 5 Mg PO DAILY Aspirin 81 Mg Tab.chew 81 Mg PO DAILY Novolog (Insulin Aspart) 100 Unit/1 Ml Vial 25 Unit SQ TIDWMEALS Alprazolam 0.5 Mg Tablet 1 Tab PO BID PRN Vitamin D3 (Cholecalciferol (Vitamin D3)) 1,000 Unit Tablet 1 Tab PO DAILY Meclizine Hcl 25 Mg Tablet 1 Tab PO TID Metformin Hcl 1,000 Mg Tablet 1,000 Mg PO BID Vitals/I & O Vital Sign - Last 24 Hours 01/15/22 01/15/22 01/15/22 01/15/22 11:00 14:49 19:58 20:00 Temp 97.7 98.4 97.1 97.7 98.4 97.1 Pulse 91 88 84 Resp 18 18 18 B/P (MAP) 117/78 (91) 150/67 (94) 137/50 (79) Pulse Ox 96 96 91 O2 Delivery Room Air Room Air Room Air Room Air 01/15/22 01/16/22 01/16/22 01/16/22 23:08 00:40 01:10 03:05 Temp 98.2 98.1 98.2 98.1 Pulse 78 86 Resp 20 16 12 18 B/P (MAP) 122/55 (77) 148/77 (100) Pulse Ox 97 94 O2 Delivery Room Air Room Air 3/19/22 3/19/22 3/19/22 07:00 09:07 09:08 Temp 97.8 97.8 Pulse 74 74 74 Resp 18 B/P (MAP) 164/77 (106) 164/77 164/77 Pulse Ox 95 O2 Delivery Room Air Intake and Output 01/15/22 01/15/22 01/16/22 15:00 23:00 07:00 Intake Total 650 ml Output Total 1000 ml Balance 650 ml -1000 ml Justifications for Admission Other Justification ELLEN MOORE MD Jan 16, 2022 09:47
--- NOTE | 2022-01-16 10:35 | PDOC ---
PROGRESS NOTES Date of Service: DATE: 01/16/22 TIME: 10:33 Subjective Subjective GOING HOME TODAY Objective Objective Vital Signs Date Time Temp Pulse Resp B/P (MAP) Pulse Ox O2 Delivery O2 Flow Rate FiO2 01/16/22 09:08 74 164/77 01/16/22 08:00 Room Air 01/16/22 07:00 97.8 18 95 97.8 Intake and Output 01/16/22 07:00 Intake Total 650 ml Output Total 1000 ml Balance -350 ml Intake Oral 650 ml Output Urine Total 1000 ml # Voids 1 Physical Exam Abdomen: Soft, Other (obes) Heart: Regular rate (SR), Normal S1, Normal S2, Other (3/6 systolic murmur to apex) Extremities: No cyanosis, Other (2+ LE pitting edema) General: Alert, Oriented X3, Cooperative, No acute distress HEENT: Atraumatic, Mucous membr. moist/pink Lungs: Clear to auscultation, Normal air movement MUSCULOSKELETAL: Osteoarthritic changes both hands Neck: No JVD Neuro: Normal speech, Sensation intact Psych/Mental Status: Other (falt affect, poor recall) Skin: No breakdown, No significant lesion COMMENT d/allie irene . Diagnosis Problem List Problems Medical Problems: (1) Fever, unknown origin Status: Acute (2) Hyperglycemia due to type 1 diabetes mellitus Status: Acute Assessment Assessment Problems Medical Problems: (1) Fever, unknown origin Status: Acute (2) Hyperglycemia due to type 1 diabetes mellitus Status: Acute FINAL IMPRESSION: 1. Mechanical fall. 2. Uncontrolled diabetes with blood sugar at 700, hyperosmolar state, not in diabetic ketoacidosis. 3. Elevated troponin. 4. Malignant hypertension. 5. Fever with confusion. 6. History of breast cancer. PLAN:spoke with pts son d/c home with home health BS 100-250 range A1C -15 no more fevers blood c/s neg pot 3.6 today po antibiotics Augmentin for 5 days pt/ot/rehab SNU screen, pt needs SNU but pt refusing to go there. Plan Plan of Care Problems Medical Problems: (1) Fever, unknown origin Status: Acute (2) Hyperglycemia due to type 1 diabetes mellitus Status: Acute Comment Review of Relevant I have reviewed the following items dixon (where applicable) has been applied. Labs Laboratory Tests Test 01/15/22 11:44 01/15/22 14:42 01/15/22 17:45 01/15/22 20:05 Glucose (Fingerstick) 172 mg/dL (70-99) 228 mg/dL (70-99) 133 mg/dL (70-99) 182 mg/dL (70-99) Test 01/16/22 07:31 Glucose (Fingerstick) 127 mg/dL (70-99) Microbiology 01/11/22 Blood Culture - Preliminary, Resulted NO GROWTH AFTER 4 DAYS Medications Current Medications Non-Formulary Medication (Dulaglutide (Trulicity)) 1.5 mg WEEKLY SQ ; Start 01/18/22 at 09:00; Status UNV Tramadol HCl (Ultram) 50 mg PRN Q6HRS PRN PO PAIN Last administered on 01/16/22at 00:40; Start 01/16/22 at 00:30 Vitals/I & O Vital Sign - Last 24 Hours 01/15/22 01/15/22 01/15/22 01/15/22 11:00 14:49 19:58 20:00 Temp 97.7 98.4 97.1 97.7 98.4 97.1 Pulse 91 88 84 Resp 18 18 18 B/P (MAP) 117/78 (91) 150/67 (94) 137/50 (79) Pulse Ox 96 96 91 O2 Delivery Room Air Room Air Room Air Room Air 01/15/22 01/16/22 01/16/22 01/16/22 23:08 00:40 01:10 03:05 Temp 98.2 98.1 98.2 98.1 Pulse 78 86 Resp 20 16 12 18 B/P (MAP) 122/55 (77) 148/77 (100) Pulse Ox 97 94 O2 Delivery Room Air Room Air 01/16/22 01/16/22 01/16/22 01/16/22 07:00 08:00 09:07 09:08 Temp 97.8 97.8 Pulse 74 74 74 Resp 18 B/P (MAP) 164/77 (106) 164/77 164/77 Pulse Ox 95 O2 Delivery Room Air Room Air Intake and Output 01/15/22 01/15/22 01/16/22 15:00 23:00 07:00 Intake Total 650 ml Output Total 1000 ml Balance 650 ml -1000 ml Justifications for Admission Other Justification ZOILA DERAS MD Jan 16, 2022 10:35
--- NOTE | 2022-01-16 10:48 | PDOC ---
Provider Note Date of Service: DATE: 01/16/22 TIME: 10:47 Provider Note Discharge summary dictated.#[id number]. Justifications for Admission Other Justification ZOILA DERAS MD Jan 16, 2022 10:48
[2022-01-16 11:00] VITALS: BP 156/57
--- NOTE | 2022-01-16 14:05 | DS ---
DATE OF DISCHARGE: 01/16/2022 REASON FOR ADMISSION TO THE HOSPITAL: 1. Hyperglycemia, uncontrolled blood sugar 700, nonketotic hyperosmolar state. 2. Fever. 3. Mental status changes. 4. Slight elevation in troponin. CONSULTATIONS: Dr. Rea, Infectious Disease; Dr. Gutierrez, Cardiology; Dr. Rios, rehab. HOSPITAL COURSE: The patient is a 76-year-old female with history of diabetes, hypertension, hyperlipidemia. She had COVID more than a month ago. The patient has been at home and she was weak and she fell while going to the toilet, was brought to the hospital. She was confused. Her blood sugars were more than 700. The patient had fevers of 102. White count was normal, initially seen by Infectious Disease, was treated with daptomycin and cefepime. Cultures, urine and blood cultures was negative. Her fevers were down. White count remained stable. Her CT scan was negative for any bleed or stroke. Her mental condition improved over time. Her blood sugars came down, was given insulin drip, was in the ICU and after 24 hours, her blood sugars came back to less than 200. She was weaned off the insulin drip and placed on insulin regimen. The patient also had a slight elevation in troponin. EKG negative for ischemia, seen by Cardiology. The patient had a CT of the chest, abdomen and pelvis, was negative for any infections or abscess. CT has been negative. Chest x-ray was negative and the patient was seen by Gabriel, rehab. The patient is able to ambulate with a walker. She refused to go to group home, wants to go home. Her white count remained stable. Blood sugars between 100-200. A1c was 15. Creatinine was normal. Troponin went up to close to 400, high sensitive troponin. TSH was 0.3. Lipid profile was normal and ketones was negative. Lactic acid 2.5. COVID test negative. Influenza was negative. FINAL IMPRESSION: 1. Hyperosmolar nonketotic encephalopathy. 2. Fevers, cultures negative. 3. Uncontrolled blood sugars, insulin dependent. 4. Hypertension. 5. Hyperlipidemia. 6. Slight elevation in troponin secondary to demand ischemia. 7. Fevers, all the cultures negative. 8. General debility. 9. Obesity. PLAN: At this time, the patient refused to go to group home. Discharged home with home health. Her son lives there. The patient had a cardiac cath 2018, normal coronaries. In 10/2021, had an echocardiogram, shows good left ventricular function, does not need any cardiac workup. SANDIE/KAMRON/LUCÍA DR: SANDIE/carmen TID: [id number]
--- NOTE | 2022-01-16 15:56 | PDOC ---
PROGRESS NOTES Date of Service DATE: 01/16/22 TIME: 15:53 Subjective Subjective Patient seen and examined Objective Objective Vital Signs Date Time Temp Pulse Resp B/P (MAP) Pulse Ox O2 Delivery O2 Flow Rate FiO2 01/16/22 11:00 97.8 82 18 156/57 (90) 94 Room Air 97.8 Intake and Output 01/16/22 07:00 Intake Total 650 ml Output Total 1000 ml Balance -350 ml Intake Oral 650 ml Output Urine Total 1000 ml # Voids 1 Physical Exam Abdomen: Normal bowel sounds Heart: Regular rate General: No acute distress Lungs: Other (Minimally decreased breath sounds) Assessment Assessment Problems Medical Problems: (1) Fever, unknown origin Status: Acute (2) Hyperglycemia due to type 1 diabetes mellitus Status: Acute Fever: T max 104, unknown origin, no further fever Nontraumatic mechanical fall HTN urgency: controlled Chronic mild troponin elevation: Suspect type 2 demand mediated. EKG SR with the same morphology as in the past. Trop same range as before. no CP. We will foll ow-up as an outpatient. CKD3 Uncontrolled DM2: As per the primary service Known mild MR: recent TTE with normal EF/WM Metabolic encephalopathy: Resolved PSVT: x1 brief, none further Hypokalemia: resolved Comment Review of Relevant I have reviewed the following items dixon (where applicable) has been applied. Labs Laboratory Tests Test 01/14/22 16:15 01/14/22 20:57 01/14/22 22:01 01/15/22 07:29 Glucose (Fingerstick) 101 mg/dL (70-99) 61 mg/dL (70-99) 106 mg/dL (70-99) 236 mg/dL (70-99) Test 01/15/22 11:44 01/15/22 14:42 01/15/22 17:45 01/15/22 20:05 Glucose (Fingerstick) 172 mg/dL (70-99) 228 mg/dL (70-99) 133 mg/dL (70-99) 182 mg/dL (70-99) Test 01/16/22 07:31 01/16/22 10:53 Glucose (Fingerstick) 127 mg/dL (70-99) 219 mg/dL (70-99) Laboratory Tests Test 01/15/22 17:45 01/15/22 20:05 01/16/22 07:31 01/16/22 10:53 Glucose (Fingerstick) 133 mg/dL (70-99) 182 mg/dL (70-99) 127 mg/dL (70-99) 219 mg/dL (70-99) Microbiology 01/11/22 Blood Culture - Final, Complete NO GROWTH AFTER 5 DAYS Medications Current Medications Sodium Chloride 500 ml @ 500 mls/hr 1X ONCE IV Last administered on 01/10/22at 21:47; Start 01/10/22 at 21:00; Stop 01/10/22 at 21:59; Status DC Sodium Chloride 1,000 ml @ 1,000 mls/hr 1X ONCE IV Last administered on 01/10/22at 21:47; Start 01/10/22 at 22:00; Stop 01/10/22 at 22:59; Status DC Iohexol (Omnipaque 300 Mg/ml) 60 ml 1X ONCE IV ; Start 01/10/22 at 23:30; Stop 01/10/22 at 23:31; Status DC Info (CONTRAST GIVEN -- Rx MONITORING) 1 each PRN DAILY PRN MC SEE COMMENTS; Start 01/10/22 at 23:00; Stop 01/12/22 at 22:59; Status DC Insulin Human Regular (HumuLIN R VIAL) 10 unit 1X ONCE IV Last administered on 01/10/22at 23:30; Start 01/10/22 at 23:30; Stop 01/10/22 at 23:31; Status DC Labetalol HCl (Normodyne Iv Push) 20 mg 1X ONCE IVP Last administered on 01/10/22at 23:33; Start 01/10/22 at 23:45; Stop 01/10/22 at 23:46; Status DC Vancomycin HCl 2 gm/Sodium Chloride 500 ml @ 250 mls/hr 1X ONCE IV Last administered on 01/10/22at 23:54; Start 01/11/22 at 00:30; Stop 01/11/22 at 02:29; Status DC Insulin Human Regular 100 unit/ Sodium Chloride 101 ml @ 1.978 mls/ hr CONT PRN IV PER PROTOCOL Last administered on 01/11/22at 08:26; Start 01/10/22 at 23:45; Stop 01/12/22 at 15:56; Status DC Ondansetron HCl (Zofran) 4 mg PRN Q8HRS PRN IVP NAUSEA/VOMITING 1ST CHOICE; Start 01/11/22 at 00:00; Stop 01/11/22 at 23:59; Status DC Morphine Sulfate (Morphine Sulfate) 2 mg PRN Q2HR PRN IVP SEVERE PAIN 7-10; Start 01/11/22 at 00:00; Stop 01/11/22 at 23:59; Status DC Sodium Chloride 1,000 ml @ 125 mls/hr Q8H IV Last administered on 01/11/22at 02:07; Start 01/11/22 at 00:00; Stop 01/11/22 at 23:59; Status DC Acetaminophen (Tylenol) 650 mg PRN Q4HRS PRN PO FEVER > 100.3'F Last administered on 01/11/22at 00:54; Start 01/11/22 at 00:00; Stop 01/11/22 at 23 :59; Status DC Metoprolol Tartrate (Lopressor Vial) 5 mg Q6HRS IVP ; Start 01/11/22 at 06:00; Stop 01/11/22 at 00:35; Status DC Hydralazine HCl (Apresoline Inj) 10 mg PRN Q4HRS PRN IVP ELEVATED BP, 1st choice Last administered on 01/13/22at 08:03; Start 01/11/22 at 00:30 Metoprolol Tartrate (Lopressor Vial) 5 mg PRN Q6HRS PRN IVP HYPERTENSION Last administered on 01/13/22at 09:21; Start 01/11/22 at 00:30 Nicardipine HCl 50 mg/Sodium Chloride 250 ml @ 25 mls/hr CONT PRN IV PER PROTOCOL Last administered on 01/11/22at 02:26; Start 01/11/22 at 02:15; Stop 01/12/22 at 15:56; Status DC Acetaminophen (Tylenol) 325 mg 1X ONCE PO Last administered on 01/11/22at 02:43; Start 01/11/22 at 03:00; Stop 01/11/22 at 03:02; Status DC Alprazolam (Xanax) 0.5 mg PRN BID PRN PO ANXIETY / AGITATION; Start 01/11/22 at 09:30 Amlodipine Besylate (Norvasc) 5 mg DAILY PO Last administered on 01/16/22at 09:08; Start 01/11/22 at 10:00 Aspirin (Aspirin Chewable) 81 mg DAILY PO Last administered on 01/16/22 09:07; Start 01/11/22 at 10:00 Atorvastatin Calcium (Lipitor) 40 mg QHS PO Last administered on 01/15/22 20:09; Start 01/11/22 at 21:00 Vitamin D (Vitamin D3) 1,000 unit DAILY PO Last administered on 01/16/22 09:07; Start 01/11/22 at 10:00 Gabapentin (Neurontin) 100 mg TID PO Last administered on 01/16/22 09:08; Start 01/11/22 at 10:00 Hydroxyzine HCl (Atarax) 25 mg PRN Q6HRS PRN PO ANXIETY / AGITATION; Start 01/11/22 at 09:30 Lidocaine (Lidoderm) 1 patch DAILY TP Last administered on 01/16/22 09:07; Start 01/11/22 at 10:00 Non-Formulary Medication (Dulaglutide (Trulicity)) 1.5 mg WEEKLY SQ ; Start 01/18/22 at 09:00; Status UNV Fluticasone Propionate (Flonase) 2 spray DAILY NS Last administered on 01/15/22 08:12; Start 01/11/22 at 10:00 Hydrochlorothiazide (Microzide) 12.5 mg DAILY PO Last administered on 01/14/22 07:50; Start 01/11/22 at 10:00; Stop 01/14/22 at 09:20; Status DC Insulin Human Lispro (HumaLOG) 25 units TIDWMEALS SQ Last administered on 01/14/22 07:46; Start 01/11/22 at 12:00; Stop 01/14/22 at 09:20; Status DC Insulin Glargine (Lantus Syringe) 30 unit BID SQ Last administered on 01/14/22 07:45; Start 01/11/22 at 10:30; Stop 01/14/22 at 09:20; Status DC Metformin HCl (Glucophage) 1,000 mg BIDWMEALS PO Last administered on 01/16/22 09:07; Start 01/13/22 at 08:00 Losartan Potassium (Cozaar) 25 mg DAILY PO Last administered on 3/19/22at 09:07; Start 01/11/22 at 10:00 Insulin Human Lispro (HumaLOG) 0-5 UNITS TIDWMEALS SQ Last administered on 01/16/22at 12:00; Start 01/11/22 at 12:00 Dextrose (Dextrose 50%-Water Syringe) 12.5 gm PRN Q15MIN PRN IV SEE COMMENTS; Start 01/11/22 at 09:30 Sodium Chloride 1,000 ml @ 50 mls/hr Q20H IV Last administered on 01/13/22at 06:21; Start 01/11/22 at 09:30; Stop 01/13/22 at 09:34; Status DC Miscellaneous (Lidoderm Patch Removal) 1 ea QHS MC Last administered on 01/15/22at 20:19; Start 01/11/22 at 21:00 Daptomycin 430 mg/ Sodium Chloride 50 ml @ 100 mls/hr Q24H IV Last administered on 01/12/22at 13:51; Start 01/11/22 at 14:00; Stop 01/13/22 at 13:36; Status DC Cefepime HCl (Maxipime) 2 gm Q12HR IVP Last administered on 01/13/22 08:23; Start 01/11/22 at 14:00; Stop 01/13/22 at 13:36; Status DC Lactobacillus Rhamnosus (Culturelle) 1 cap BID PO Last administered on 01/16/22at 09:10; Start 01/12/22 at 21:00 Potassium Chloride (Klor-Con) 40 meq 1X ONCE PO Last administered on 01/13/22at 09:42; Start 01/13/22 at 09:45; Stop 01/13/22 at 09:46; Status DC Amoxicillin/ Clavulanate Potassium (Augmentin 875/ 125mg) 1 tab BID PO Last administered on 01/16/22at 09:08; Start 01/13/22 at 21:00 Insulin Glargine (Lantus Syringe) 25 unit BID SQ Last administered on 01/16/22at 09:15; Start 01/14/22 at 21:00 Insulin Human Lispro (HumaLOG) 15 units TIDWMEALS SQ Last administered on 01/16/22at 12:00; Start 01/14/22 at 12:00 Tramadol HCl (Ultram) 50 mg PRN Q6HRS PRN PO PAIN Last administered on 01/16/22at 00:40; Start 01/16/22 at 00:30 Active Scripts Active Amox Tr-K Clv 875-125 Mg Tab (Amoxicillin/Potassium Clav) 1 Each Tablet 1 Tab PO BID 5 Days Levemir (Insulin Detemir) 100 Unit/1 Ml Vial 30 Unit SQ BID Lidocaine PATCH (Lidocaine) 1 Each Adh..patch 1 Each TP DAILY REMOVE AFTER 12 HOURS Flonase Allergy Relief (Fluticasone Propionate) 9.9 Ml Cypress.susp 2 Sprays NS DAILY Reported Trulicity (Dulaglutide) 1.5 Mg/0.5 Ml Pen.injctr 1.5 Mg SQ WEEKLY Levocetirizine Dihydrochloride 5 Mg Tablet 1 Tab PO QHS Methocarbamol 500 Mg Tablet 500 Mg PO QID Olmesartan Medoxomil 5 Mg Tablet 1 Tab PO DAILY Gabapentin 100 Mg Capsule 1 Cap PO TID Atorvastatin Calcium 40 Mg Tablet 1 Tab PO DAILY Hydroxyzine Hcl 25 Mg Tablet 25 Mg PO PRN Q6HRS PRN Amlodipine Besylate 5 Mg Tablet 5 Mg PO DAILY Aspirin 81 Mg Tab.chew 81 Mg PO DAILY Novolog (Insulin Aspart) 100 Unit/1 Ml Vial 25 Unit SQ TIDWMEALS Alprazolam 0.5 Mg Tablet 1 Tab PO BID PRN Vitamin D3 (Cholecalciferol (Vitamin D3)) 1,000 Unit Tablet 1 Tab PO DAILY Meclizine Hcl 25 Mg Tablet 1 Tab PO TID Metformin Hcl 1,000 Mg Tablet 1,000 Mg PO BID Vitals/I & O Vital Sign - Last 24 Hours 01/15/22 01/15/22 01/15/22 01/16/22 19:58 20:00 23:08 00:40 Temp 97.1 98.2 97.1 98.2 Pulse 84 78 Resp 18 20 16 B/P (MAP) 137/50 (79) 122/55 (77) Pulse Ox 91 97 O2 Delivery Room Air Room Air Room Air 01/16/22 01/16/22 01/16/22 01/16/22 01:10 03:05 07:00 08:00 Temp 98.1 97.8 98.1 97.8 Pulse 86 74 Resp 12 18 18 B/P (MAP) 148/77 (100) 164/77 (106) Pulse Ox 94 95 O2 Delivery Room Air Room Air Room Air 01/16/22 01/16/22 01/16/22 09:07 09:08 11:00 Temp 97.8 97.8 Pulse 74 74 82 Resp 18 B/P (MAP) 164/77 164/77 156/57 (90) Pulse Ox 94 O2 Delivery Room Air Intake and Output 01/15/22 01/15/22 01/16/22 15:00 23:00 07:00 Intake Total 650 ml Output Total 1000 ml Balance 650 ml -1000 ml Justifications for Admission Other Justification JOZEF ARMSTRONG MD Jan 16, 2022 15:56
[2022-01-18] MEDS ORDERED: NON FORMULARY ITEM (Dulaglutide (Trulicity) 1.5 MG) SQ SCH (09:00)
== END 2022-01-16 12:30 | disposition home or self-care (01) | DRG 871 ==
LOC: ER 20:30 → 5 NORTH 23:20 → 1 WEST ICU 01-11 02:16 → 6 SOUTH 01-12 11:04
PROVIDERS: ADMIT Internal Medicine; ATTEND Internal Medicine
DX: A41.9 Sepsis, unspecified organism (principal); G93.41 Metabolic encephalopathy; E10.22 Type 1 diabetes mellitus with diabetic chronic kidney disease; E10.65 Type 1 diabetes mellitus with hyperglycemia; E66.9 Obesity, unspecified; E78.00 Pure hypercholesterolemia, unspecified; E78.5 Hyperlipidemia, unspecified; E87.6 Hypokalemia; F41.0 Panic disorder [episodic paroxysmal anxiety]; I12.9 Hypertensive chronic kidney disease with stage 1 through stage 4 chronic kidney disease, or unspecified chronic kidney disease; I16.0 Hypertensive urgency; M47.812 Spondylosis without myelopathy or radiculopathy, cervical region; N18.30 Chronic kidney disease, stage 3 unspecified; W18.30XA Fall on same level, unspecified, initial encounter; Z20.822 Contact with and (suspected) exposure to COVID-19; Z79.4 Long term (current) use of insulin; Z85.3 Personal history of malignant neoplasm of breast; Z86.16 Personal history of COVID-19; Z87.891 Personal history of nicotine dependence; Z88.5 Allergy status to narcotic agent; Z90.49 Acquired absence of other specified parts of digestive tract; Z91.14 Patient's other noncompliance with medication regimen; F41.9 Anxiety disorder, unspecified; K21.9 Gastro-esophageal reflux disease without esophagitis; M10.9 Gout, unspecified; Z98.51 Tubal ligation status; Z88.8 Allergy status to other drugs, medicaments and biological substances; Z68.38 Body mass index [BMI] 38.0-38.9, adult
CPT/HCPCS: 36415; 70450; 71045; 71260; 72125; 73521; 74177; 80048; 80053; 80061; 81001; 82010; 82550; 82962; 83036; 83605; 83735; 83880; 83930; 84100; 84443; 84484; 85025; 87040; 87428; 93005; 96361; 96365; 96366; 96367; 96375; J0360; J0692; J0878; J1815; J3370; J3490; J7030; J7040; J7050; U0003; 73560-50; 97116-GP; 97530-GO; 97530-GP; 97535-GO; 99285-25; G0378

== ENCOUNTER → 2022-03-18 | Outpatient (CLI) | payer OTHER, MEDICAID ==
--- NOTE | 2022-03-18 13:40 | KCIC ---
Bilateral lower extremity arterial ultrasound History: : 76 years Female Reason: Bilateral Resting leg pain; PVD Findings: Multiple grayscale, color, and duplex spectral analysis sonographic images were acquired of the lower extremity arteries. FINDINGS: Grayscale evaluation of the femoropopliteal segments demonstrate multifocal atherosclerotic plaque. Color Doppler demonstrate patent arterial segments from the EXPERT WITNESS to dorsalis pedis and posterior tibia l arteries. Waveforms: Right LE: Biphasic proximally with transition to monophasic, waveforms in the dorsalis pedis and the posterior tibial artery distally Left LE: Biphasic proximally with transition to monophasic waveforms in the distal CIA AGENT and in the DPA Velocities: Flow velocities are generally within normal limits except for diminished flow velocity in the distal CIA AGENT on the right side of 22 cm/s. Impression: Suggestion of significant infrapopliteal peripheral arterial disease. Electronically signed by: Fabrizio Flores MD (03/18/2022 1:38 PM) [id number]
== END ==
LOC: KCIC US 09:15
PROVIDERS: ATTEND Podiatrist Foot & Ankle Surgery
DX: I73.9 Peripheral vascular disease, unspecified (principal); M79.604 Pain in right leg; M79.605 Pain in left leg
CPT/HCPCS: 93925